=== PATIENT | male | born 1950 | race Caucasian/White ===

== ENCOUNTER → 2020-06-27 08:20 | Outpatient (BNVA) | payer MEDICARE, SELFPAY | PROVIDERS: PCP Internal Medicine; Referring Provider Internal Medicine; Visit Provider Internal Medicine Cardiovascular Disease | DX: I48.20 Chronic atrial fibrillation, unspecified (principal); Z79.01 Long term (current) use of anticoagulants; Z79.899 Other long term (current) drug therapy | CPT/HCPCS: 93005; 99212 ==

== ENCOUNTER → 2020-07-25 09:58 | Outpatient (REF) | payer MEDICARE, SELFPAY ==
--- NOTE | 2020-07-25 10:00 | ECG_ITS ---
Hook-up date: 2020-07-25 10:10:00 Duration: 35:32:00 Test Indications: UNSPEC ATRIAL FLUTTER Medications: [id number] QRS complexes 8017 Ventricular ectopics which represent 6 % of total QRS comp. * Supraventricular ectopics which represent % of total QRS comp. * Paced QRS complexs which represent % of total QRS comp. VENTRICULAR ECTOPY 7894 Isolated 650 Bigeminal Cycles 39 Couplets 15 Runs 45 Beats in Runs 3 Beats LONGEST at 120 BPM at 10:26:30 2020-07-25 3 Beats FASTEST at 136 BPM at 12:10:00 2020-07-25 SUPRAVENTRICULAR ECTOPY * Isolated * Couplets * Runs * Beats in Runs * Beats LONGEST at * BPM at :: -- * Beats FASTEST at * BPM at :: -- HEART RATES 55 MIN at 06:52:26 2020-07-26 87 AVG 169 MAX at 19:33:43 2020-07-25 LONGEST RR 1.9280 secs at 17:07:07 2020-07-25 S-T LEVELS Channel 1 - 128 mm at 10:10:00 2020-07-25 - 128 mm at 10:10:00 2020-07-25 Channel 2 - 128 mm at 10:10:00 2020-07-25 - 128 mm at 10:10:00 2020-07-25 Channel 3 - 128 mm at 02:92:91 -- - 128 mm at 02:92:91 Underlying rhythm is atrial fibrillation; Average ventricular rate 87/min; range 55-169/min; Most rates between 60-100/min; Frequent ventricular ectopy, about 8000 over 35 Hrs (6%); Mostly isolated; unifocal, some beats with alternate polarity; some couplets and bigeminal cycles; longest run 3 beats; Patient did not report any symptoms in the diary Referred By: Chas Gonzalez Overread By: WILLI SARGENT
== END ==
LOC: HO.CARD 09:58
PROVIDERS: PCP Internal Medicine; Visit Provider Internal Medicine Cardiovascular Disease
DX: I48.92 Unspecified atrial flutter (principal)
CPT/HCPCS: 93225; 93226

== ENCOUNTER 2020-11-07 08:33 | Outpatient (REF) | payer MEDICARE, SELFPAY ==
[2020-11-07 09:47] LABS: Anion Gap 13 (12-20); Blood Urea Nitrogen 20 mg/dL (9-16); Calcium 8.7 mg/dL (8.4-10.2); Carbon Dioxide 29 mmol/L (22-29); Chloride 100 mmol/L (96-108); Estimated Glomerular Filt Rate 49; Phosphorus 3.4 mg/dL (2.7-4.5); Sodium 137 mmol/L (135-145)
[2020-11-07 09:49] LABS: Creatinine Urine 94.25 mg/dL; Microalbum/Creatinine Ratio Ur 391.5 ug/mg cr
[2020-11-07 09:57] LABS: Renal w Reflex Lab Use Only Order verified
== END 2020-11-07 08:34 | disposition home or self-care (01) ==
LOC: HO.LAB 08:33
PROVIDERS: PCP Internal Medicine; Visit Provider Internal Medicine Nephrology
DX: I12.9 Hypertensive chronic kidney disease with stage 1 through stage 4 chronic kidney disease, or unspecified chronic kidney disease (principal); N18.30 Chronic kidney disease, stage 3 unspecified
CPT/HCPCS: 36415; 80051; 82043; 82310; 82565; 84100; 84520

== ENCOUNTER 2021-06-15 08:18 | Outpatient (REF) | payer MEDICARE, SELFPAY ==
[2021-06-15 08:34] LABS: MANUAL DIFF FLAG NO
[2021-06-15 09:15] LABS: Basophils Absolute Auto 0.1 X10*3/uL (0.0-0.2); Basophils Percent Auto 0.6 % (0-2); Eosinophils Absolute Auto 0.3 X10*3/uL (0.0-0.4); Eosinophils Percent Auto 2.8 % (0-4); Hematocrit 43.9 % (42-52); Imm Gran Abs Auto 0.13 X10*3/uL (0.00-0.03); Imm Gran Pct Auto 1.2 % (0.0-0.4); Lymphocytes Absolute Auto 1.3 X10*3/uL (1.2-4.9); Lymphocytes Percent Auto 12.4 % (20-40); Mean Corpuscular HGB Conc 34.2 g/dl (31.0-36.0); Mean Corpuscular Hemoglobin 31.8 pg (27.0-33.0); Mean Platelet Volume 9.9 fL (9.4-12.4); Monocytes Absolute Auto 0.7 X10*3/uL (0.1-1.2); Monocytes Percent Auto 6.9 % (2-11); Neutrophils Absolute Auto 8.2 X10*3/uL (2.0-8.3); Neutrophils Percent Auto 76.1 % (45-73); Platelet Count 280 X10*3/uL (160-400); Red Blood Count 4.72 X10*6/uL (4.60-5.80); White Blood Count 10.8 X10*3/uL (4.8-10.8)
[2021-06-15 09:38] LABS: Anion Gap 14 (12-20); Blood Urea Nitrogen 15 mg/dL (9-16); Carbon Dioxide 25 mmol/L (22-29); Chloride 104 mmol/L (96-108); Estimated Glomerular Filt Rate 47; Potassium 4.9 mmol/L (3.3-5.1); Sodium 138 mmol/L (135-145)
[2021-06-15 09:44] LABS: Creatinine Urine 106.26 mg/dL; Microalbum/Creatinine Ratio Ur 445.1 ug/mg cr; Total Protein Urine Random 81 mg/dL (<12)
[2021-06-16 14:31] LABS: Calcium (PTHI) 9.3 mg/dL (8.6-10.3); PTHI 102 pg/mL (14-64)
== END 2021-06-15 08:19 | disposition home or self-care (01) ==
LOC: HO.LAB 08:18
PROVIDERS: PCP Internal Medicine; Visit Provider Internal Medicine Nephrology
DX: I12.9 Hypertensive chronic kidney disease with stage 1 through stage 4 chronic kidney disease, or unspecified chronic kidney disease (principal); N18.31 Chronic kidney disease, stage 3a
CPT/HCPCS: 36415; 80051; 82043; 82565; 83970; 84156; 84520; 85025

== ENCOUNTER 2021-06-24 13:47 | Outpatient (REF) | payer MEDICARE, SELFPAY ==
[2021-06-24 14:38] LABS: Uric Acid 7.5 mg/dL (3.4-7.0)
== END 2021-06-24 13:48 | disposition home or self-care (01) ==
LOC: HO.LAB 13:47
PROVIDERS: PCP Internal Medicine; Visit Provider Internal Medicine Nephrology
DX: N18.31 Chronic kidney disease, stage 3a (principal)
CPT/HCPCS: 36415; 84550

== ENCOUNTER → 2021-06-29 09:04 | Outpatient (BNVA) | payer MEDICARE, SELFPAY | PROVIDERS: PCP Internal Medicine; Referring Provider Internal Medicine; Visit Provider Internal Medicine Cardiovascular Disease | DX: I48.20 Chronic atrial fibrillation, unspecified (principal); I95.1 Orthostatic hypotension | CPT/HCPCS: 93005; 99212 ==

== ENCOUNTER 2021-11-15 06:31 | Inpatient (IN) | payer MEDICARE, SELFPAY ==
[2021-11-15] VITALS (10 sets, daily range): BP systolic 129–203; BP diastolic 67–126; PULSE 88–122; RESP 19–32; TEMP 36.7–37.4; O2SAT 94–99; BMI 24.1
--- NOTE | ~2021-11-15 | CT_ITS ---
EXAMINATION: CT HEAD WITHOUT CONTRAST (STROKE PROTOCOL) CLINICAL INFORMATION: Stroke protocol. Difficulty word finding, on Eliquis. COMPARISON: Report of brain MRI from 06/11/2012. Head CT from 06/11/2012. TECHNIQUE: Contiguous axial imaging was performed from the skull base to vertex without intravenous administration of contrast. This CT examination was performed using dose optimization techniques as appropriate, variously including the following: *Automated exposure control *Adjustment of mA and/or kV according to patient size (this includes techniques or standardized protocols for targeted exams where dose is matched to indication/reason for exam; i.e. extremities or head) *Use of iterative reconstruction technique DLP: 744 mGy-cm FINDINGS: The brain parenchyma has normal attenuation with well-preserved white-white matter differentiation. No evidence of an acute major vascular territory infarction. No intracranial hemorrhage, extra-axial fluid collection, focal mass effect or midline shift. The ventricles have normal size and configuration; no hydrocephalus. The brainstem and cerebellum are unremarkable. The calvarium is intact. The visualized paranasal sinuses, mastoid air cells and middle ear cavities are well aerated. The orbits and temporomandibular joints are unremarkable. CT/CT head for stroke IMPRESSION: No acute intracranial pathology. This critical result was discussed with Dr. April Coleman at 7:06 am on 11/15/2021. It was ascertained that the content and urgency of the report was understood at the time of direct communication.
--- NOTE | ~2021-11-15 | XR_ITS ---
EXAMINATION: XR CHEST CLINICAL INFORMATION: Stroke symptoms COMPARISON: CXR from 11/05/2017 TECHNIQUE: Frontal view of the chest was obtained. FINDINGS: Lungs are well expanded and clear. No pulmonary edema, consolidation or pleural effusion. No pneumothorax. Cardiac silhouette has normal size and contour. There is atherosclerotic calcification of the aortic arch. Skeletal findings include [id number] osteoarthritis of the left glenohumeral joint. XR/XR chest 1V IMPRESSION: No acute pulmonary disease.
--- NOTE | ~2021-11-15 | CT_ITS ---
EXAMINATION: CTA OF THE HEAD AND NECK CLINICAL INFORMATION: Word finding difficulty. COMPARISON: Head CT from 11/15/2021. TECHNIQUE: Test bolus sequences followed by intravenous administration 70 mL of Omnipaque 350. Helical imaging was performed in the axial plane from the mediastinum to the skull vertex. Delayed postcontrast imaging of the head was also performed. The data was processed at the ophthalmic technologist's workstation for generation of MIP sequences. Three-dimensional volume rendered reformatted images were also generated at an offline 3-D workstation. Stenoses are assessed in accordance with NASCET criteria unless otherwise indicated. This CT examination was performed using dose optimization techniques as appropriate, variously including the following: *Automated exposure control *Adjustment of mA and/or kV according to patient size (this includes techniques or standardized protocols for targeted exams where dose is matched to indication/reason for exam; i.e. extremities or head) *Use of iterative reconstruction technique DLP: 1590 mGy-cm. FINDINGS: CTA neck: The imaged aortic arch and origins of the great vessels are normal. The common carotid arteries are widely patent. There are mild atherosclerotic wall calcifications at the carotid bifurcations and origins of the internal carotid arteries with mild stenotic narrowing bilaterally. The vertebral arteries opacify normally and are of normal caliber. The soft tissues of the neck are unremarkable. Moderate to severe multilevel cervical spondylosis noted. There are left AP window and right paratracheal space lymph nodes which are enlarged, measuring up to 1.2 cm in short axis dimension, of indeterminate etiology. Mild subsegmental atelectatic changes noted in the lungs. CTA head: The intradural vertebral arteries and basilar artery are normal. The posterior cerebral arteries are widely patent. There are mild to moderate stenoses in the cavernous segments of the internal carotid arteries with moderate atherosclerotic wall calcifications. The DANY and MCA vascular complexes bilaterally are normal. The venous sinuses opacify normally. CT/CT angio head neck stroke IMPRESSION: Normal CT angiogram of the head. Mild atherosclerotic disease at the carotid bifurcations with mild stenotic narrowing at the origins of the cervical internal carotid arteries. No high-grade stenosis or vessel occlusion. Mediastinal adenopathy of indeterminate etiology. A follow-up CT scan of the chest is recommended for more complete evaluation. Imaging findings reported to Dr. Coleman at 8:33 AM on 11/15/2021.
--- NOTE | ~2021-11-15 | MR_ITS ---
EXAMINATION: MR BRAIN WITHOUT CONTRAST CLINICAL INFORMATION: Facial droop and dysarthria. COMPARISON: CT from 11/15/2021. TECHNIQUE: Multiplanar, multisequence imaging of the brain was performed without contrast. FINDINGS: There is a focal acute infarct involving the dorsal right basal ganglia and right kumari radiata. The ventricles are normal in size. No mass effect or midline shift is seen. Mild chronic white matter microangiopathic changes noted. No extra-axial fluid collections are seen. The cerebellum is normal. Mild small vessel ischemic changes noted in the darshana. The gradient refocused acquisition is normal. The craniovertebral junction, marrow signal, and midline structures are normal. The major intracranial flow voids at the level of the [place] are preserved. The dural venous sinus flow voids are maintained. The paranasal sinuses are fairly well aerated. There is a mild amount of fluid in the dependent left mastoid air cells. There is an elongated lobulated T2 hyperintense lesion in the left parapharyngeal fat space which is indeterminate, measuring 0.6 cm in short axis dimension and up to 3 cm in oblique craniocaudal long axis dimension. 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 Mild chronic white matter microangiopathy. 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
--- NOTE | 2021-11-15 06:44 | ECG_ITS ---
Test Reason : dizz Blood Pressure : / mmHG Vent. 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 rate has increased BY 50 BPM Inverted T waves have replaced nonspecific T wave abnormality in Inferior leads Referred By: April Coleman Electronically Signed By:Rogerio Jacob
--- NOTE | 2021-11-15 06:45 | ED.NEUROSD ---
HPI - Neuro Symptoms/Deficit General Chief Complaint: Stroke Stated Complaint: General Weakness Time Seen by Provider: 11/15/21 06:43 Source: patient and family Mode of arrival: ambulatory Limitations: no limitations History of Present Illness HPI Narrative: 71 yo male with hx of afib on eliquis last dose 6pm, RBBB, HTN, mild CKD here with c/o noticing at 520am his L arm doesn't work well he has difficutly getting his words out he doesn't feel well and his body had chills. He denies any other issues but notes he has a hard time urinating sometimes. He took two tylenol. He is very anxious and crying. Onset (ago): hour(s) (520am) Last Observed Normal: 05:20 Timing confirmed by: family member Location: speech and left arm History of same: No Severity: mild Quality: weak Relieving factors: none Exacerbating factors: none Context: sudden onset On Anticoagulants: Yes Associated symptoms: fever/chills, headaches, malaise, weakness and other (anxiety, crying) Treatments Prior to Arrival: other medication (two tylenol) Related Data Home Medications Medication Instructions Recorded Confirmed omeprazole 20 mg capsule,delayed 20 mg PO DAILY 06/27/20 06/29/21 release allopurinol 100 mg tablet 100 mg PO DAILY 06/29/21 06/29/21 Previous Rx's Medication Instructions Recorded levothyroxine 50 mcg tablet 50 mcg PO QAM 90 Days #90 tab 02/11/21 metoprolol succinate 25 mg 25 mg PO BID #180 tab 03/13/21 tablet,extended release 24 hr apixaban 5 mg tablet (Eliquis) 5 mg PO BID #180 tab 03/22/21 Allergies Allergy/AdvReac Type Severity Reaction Status Date / Time lisinopril Allergy Unknown sob Verified 11/15/21 06:43 Ngxlugq-YGP-KtR Reductase Allergy Unknown myalgia Verified 11/15/21 06:43 Inhibitor [Pbpgkwc-Yxs-Zye Reductase Inhibitor] prednisone Allergy Unknown Verified 11/15/21 06:43 mold and dustmites Allergy Unknown unknown Uncoded 11/15/21 06:43 Review of Systems Review of Systems: Constitutional : No Fever, pos Chills, pos Fatigue ENT/Mouth : No sore throat, pos Rhinorrhea Eyes: No Eye Pain, No Swelling, No Redness Cardiovascular : No Chest Pain, No SOB, No Dyspnea on Exertion Respiratory : No Cough, No Sputum Gastrointestinal : No Nausea, No Vomiting, No Diarrhea, No abdominal Pain Genitourinary : No Dysuria, pos Urinary Frequency, No Hematuria, Musculoskeletal : No joint pain, No Myalgias, No Joint Swelling Skin : No Skin Lesions, No rash Neuro : pos Weakness, No Numbness, No Dizziness, positive Headache, pos slurred speech Psych : pos Anxiety/Panic, No Depression Heme/Lymph: No Bruising, No Bleeding,No Lymphadenopathy Endocrine : No Polyuria, No Polydipsia All other systems reviewed and are negative [facility] Past Medical History Attestation statement: The following information was validated with the patient. Medical History Chronic atrial fibrillation Chronic atrial flutter CKD (chronic kidney disease) Orthostatic hypotension RBBB Family History Family History Father CAD (coronary artery disease) Mother Stroke Family/Other Stroke Social History Social History (Updated 11/15/21 @ 07:22 by April Coleman DO) Patient Tobacco Use Status: Never used Tobacco Use of substances other than those prescribed or required for medical reasons: No Advance Directives: No Advance Directives Information Provided: Yes Physical Exam Vital Signs: Vital Signs: Last Vital Signs Temp 99.4 F 11/15/21 07:31 Pulse 122 H 11/15/21 08:31 Resp 26 H 11/15/21 08:01 BP 145/87 H 11/15/21 08:31 Pulse Ox 94 11/15/21 08:01 BMI result Body Mass Index 24.1 Appearance: Alert. Oriented X3. Mild acute distress - anxious crying. at bedside Eyes: Pupils equal, round and reactive to light. ENT: Pharynx normal. Neck: Normal inspection. Neck supple. CVS: tachycardic and irregular heart rate and rhythm. Pulses normal. Respiratory: No respiratory distress. Breath sounds normal. Abdomen: Soft and nontender. Skin: Skin warm and dry. Normal skin color. Normal skin turgor. Extremities: No lower extremity edema. No calf ttp Neuro: Oriented X 3. No motor deficit. No sensory deficit. CN 2-12 intact, mild expressive aphasia Course Course Course Narrative: not a candidat for tPa had eliquis 12 hours ago and PT is > 15 - CTA ordered but has borderline kidney function waiting for Cr though LVO seems unlikely IV diltiazem ordered at this time for rapid afib call from [facility] 832am: CTA negative for LVO lactic acidosis 2.7 - 500cc bolus IVF ordered, empiric ceftriaxone ordered at this time notes about a few weeks ago he was on antibiotics for dental procedures, empiric rocephin ordered 2G at this time given presentation and lab abnormalities MDM - Neuro Symptoms/Deficit MDM Narrative Medical decision making narrative: 71 yo male with hx of afib on eliquis last dose 6pm, RBBB, HTN, mild CKD here with neurologic symptoms of expressive aphasia / dysarthria but also he has a low grade temp and is in rapid afib. He took two tylenol [employer] and didn't feel well with chills as well. He will need not only a stroke workup but an infectious workup. Due to his recent eliquis use with borderline kidney function and PT > 15 he is not a candidate for tpA at this time. Will obtain CTA for LVO though low susp if his kidney function is amenable. UA and CXR ordered. Planned admit. IV dilt for rapid afib ordered as well. Lab Data Result diagrams: 11/15/21 06:10 11/15/21 06:10 Labs: Lab Results 11/15/21 11/15/21 11/15/21 Range/Units 06:10 06:10 06:10 WBC 16.4 H (4.8-10.8) X10*3/uL RBC 4.69 (4.60-5.80) X10*6/uL Hgb 15.1 (14.0-18.0) g/dl Hct 44.0 (42.0-52.0) % MCV 93.8 (80.0-98.0) fL MCH 32.2 (27.0-33.0) pg MCHC 34.3 (31.0-36.0) g/dl RDW 14.5 (11.0-16.0) % Plt Count 174 (160-400) X10*3/uL MPV 9.8 (9.4-12.4) fL Immature Gran % (Auto) 0.8 H (0.0-0.4) % Neut % (Auto) 87.2 H (45-73) % Lymph % (Auto) 5.6 L (20-40) % [place] % (Auto) 6.0 (2-11) % Eos % (Auto) 0.2 (0-4) % Baso % (Auto) 0.2 (0-2) % Lymph # (Auto) 0.9 L (1.2-4.9) X10*3/uL [place] # (Auto) 1.0 (0.1-1.2) X10*3/uL Eos # (Auto) 0.0 (0.0-0.4) X10*3/uL Baso # (Auto) 0.0 (0.0-0.2) X10*3/uL Abs Immat Gran (auto) 0.13 H (0.00-0.03) X10*3/uL Absolute Neuts (auto) 14.3 H (2.0-8.3) x10*3/uL Absolute Nucleated RBC 0.000 (0.0-0.012) X10*3/uL Nucleated RBC % (auto) 0.0 (0.0-0.2) /100WBC PT 16.6 H (9.9-13.0) SEC INR 1.5 H (0.9-1.1) APTT 35.9 (24.1-38.0) SEC Sodium 133 L (135-145) mmol/L Potassium 4.2 (3.3-5.1) mmol/L Chloride 100 (96-108) mmol/L Carbon Dioxide 20 L (22-29) mmol/L Anion Gap 17 (12-20) BUN 17 H (9-16) mg/dL Creatinine 1.40 (0.5-1.4) mg/dL Estim Creat Clear Calc 44.3 Estimated GFR 50 Random Glucose 238 H (60-115) mg/dL Lactic Acid (0.5-2.0) mmol/L Calcium 9.0 (8.4-10.2) mg/dL Magnesium 1.4 L* (1.6-2.6) mg/dL Total Bilirubin 1.8 H (0.0-1.0) mg/dL Direct Bilirubin 0.5 (0.0-0.5) mg/dL AST 23 (5-37) U/L ALT 40 (0-40) U/L Alkaline Phosphatase 63 (39-117) U/L Troponin I High Sens (<3.5-35.0) ng/L Total Protein 7.3 (6.5-8.0) g/dL Albumin 4.1 (3.5-5.0) g/dL Lipase 28 (8-78) U/L Urine Color Urine Appearance Urine pH (5.0-8.0) Ur Specific [place] (1.005-1.025) Urine Protein (NEG-TRACE) MG/DL Urine Glucose (UA) (NEG) MG/DL Urine Ketones (NEG) MG/DL Urine Blood (NEG) Urine Nitrite (NEG) Ur Leukocyte Esterase (NEG) COVID-19 (PIERRE) (Negative) COVID-19 Clin Com Influenza Type A (BIANCA) (Negative) Influenza Type B (BIANCA) (Negative) Influenza A & B Note 11/15/21 11/15/21 11/15/21 Range/Units 06:10 07:20 08:12 WBC (4.8-10.8) X10*3/uL RBC (4.60-5.80) X10*6/uL Hgb (14.0-18.0) g/dl Hct (42.0-52.0) % MCV (80.0-98.0) fL MCH (27.0-33.0) pg MCHC (31.0-36.0) g/dl RDW (11.0-16.0) % Plt Count (160-400) X10*3/uL MPV (9.4-12.4) fL Immature Gran % (Auto) (0.0-0.4) % Neut % (Auto) (45-73) % Lymph % (Auto) (20-40) % [place] % (Auto) (2-11) % Eos % (Auto) (0-4) % Baso % (Auto) (0-2) % Lymph # (Auto) (1.2-4.9) X10*3/uL [place] # (Auto) (0.1-1.2) X10*3/uL Eos # (Auto) (0.0-0.4) X10*3/uL Baso # (Auto) (0.0-0.2) X10*3/uL Abs Immat Gran (auto) (0.00-0.03) X10*3/uL Absolute Neuts (auto) (2.0-8.3) x10*3/uL Absolute Nucleated RBC (0.0-0.012) X10*3/uL Nucleated RBC % (auto) (0.0-0.2) /100WBC PT (9.9-13.0) SEC INR (0.9-1.1) APTT (24.1-38.0) SEC Sodium (135-145) mmol/L Potassium (3.3-5.1) mmol/L Chloride (96-108) mmol/L Carbon Dioxide (22-29) mmol/L Anion Gap (12-20) BUN (9-16) mg/dL Creatinine (0.5-1.4) mg/dL Estim Creat Clear Calc Estimated GFR Random Glucose (60-115) mg/dL Lactic Acid 2.7 H* (0.5-2.0) mmol/L Calcium (8.4-10.2) mg/dL Magnesium (1.6-2.6) mg/dL Total Bilirubin (0.0-1.0) mg/dL Direct Bilirubin (0.0-0.5) mg/dL AST (5-37) U/L ALT (0-40) U/L Alkaline Phosphatase (39-117) U/L Troponin I High Sens 12.1 (<3.5-35.0) ng/L Total Protein (6.5-8.0) g/dL Albumin (3.5-5.0) g/dL Lipase (8-78) U/L Urine Color Urine Appearance Urine pH (5.0-8.0) Ur Specific [place] (1.005-1.025) Urine Protein (NEG-TRACE) MG/DL Urine Glucose (UA) (NEG) MG/DL Urine Ketones (NEG) MG/DL Urine Blood (NEG) Urine Nitrite (NEG) Ur Leukocyte Esterase (NEG) COVID-19 (PIERRE) Negative (Negative) COVID-19 Clin Com See Note Influenza Type A (BIANCA) (Negative) Influenza Type B (BIANCA) (Negative) Influenza A & B Note 11/15/21 11/15/21 Range/Units 08:12 08:24 WBC (4.8-10.8) X10*3/uL RBC (4.60-5.80) X10*6/uL Hgb (14.0-18.0) g/dl Hct (42.0-52.0) % MCV (80.0-98.0) fL MCH (27.0-33.0) pg MCHC (31.0-36.0) g/dl RDW (11.0-16.0) % Plt Count (160-400) X10*3/uL MPV (9.4-12.4) fL Immature Gran % (Auto) (0.0-0.4) % Neut % (Auto) (45-73) % Lymph % (Auto) (20-40) % [place] % (Auto) (2-11) % Eos % (Auto) (0-4) % Baso % (Auto) (0-2) % Lymph # (Auto) (1.2-4.9) X10*3/uL [place] # (Auto) (0.1-1.2) X10*3/uL Eos # (Auto) (0.0-0.4) X10*3/uL Baso # (Auto) (0.0-0.2) X10*3/uL Abs Immat Gran (auto) (0.00-0.03) X10*3/uL Absolute Neuts (auto) (2.0-8.3) x10*3/uL Absolute Nucleated RBC (0.0-0.012) X10*3/uL Nucleated RBC % (auto) (0.0-0.2) /100WBC PT (9.9-13.0) SEC INR (0.9-1.1) APTT (24.1-38.0) SEC Sodium (135-145) mmol/L Potassium (3.3-5.1) mmol/L Chloride (96-108) mmol/L Carbon Dioxide (22-29) mmol/L Anion Gap (12-20) BUN (9-16) mg/dL Creatinine (0.5-1.4) mg/dL Estim Creat Clear Calc Estimated GFR Random Glucose (60-115) mg/dL Lactic Acid (0.5-2.0) mmol/L Calcium (8.4-10.2) mg/dL Magnesium (1.6-2.6) mg/dL Total Bilirubin (0.0-1.0) mg/dL Direct Bilirubin (0.0-0.5) mg/dL AST (5-37) U/L ALT (0-40) U/L Alkaline Phosphatase (39-117) U/L Troponin I High Sens (<3.5-35.0) ng/L Total Protein (6.5-8.0) g/dL Albumin (3.5-5.0) g/dL Lipase (8-78) U/L Urine Color STRAW Urine Appearance CLEAR Urine pH 6.0 (5.0-8.0) Ur Specific [place] <= 1.005 (1.005-1.025) Urine Protein NEG (NEG-TRACE) MG/DL Urine Glucose (UA) NEG (NEG) MG/DL Urine Ketones NEG (NEG) MG/DL Urine Blood NEG (NEG) Urine Nitrite NEG (NEG) Ur Leukocyte Esterase NEG (NEG) COVID-19 (PIERRE) (Negative) COVID-19 Clin Com Influenza Type A (BIANCA) Negative (Negative) Influenza Type B (BIANCA) Negative (Negative) Influenza A & B Note See Note ECG Data Attestation: I personally reviewed and interpreted this ECG as follows: ECG interpretation date: 11/15/21 ECG interpretation time: 07:32 Interpretation: Rate: 119 Rhythm: afib with RVR [place]: left Normal QRS complex. ST T wave : RBBB qTC: nonspecific no LAUREL sig artifact noted prior studies: old RBBB noted, hx of afib The study has been interpreted contemporaneously by me. NIH Stroke Scale Internal: Initial- Upon Arrival Level of Consciousness: Alert Level of Consciousness Questions: Answers both questions correctly Level of Consciousness Commands: Performs both tasks correctly Best Gaze: Normal Visual: No visual loss Facial Palsy: Normal Motor Arm (Right): No drift Motor Arm (Left): No drift Motor Leg (Right): No drift Motor Leg (Left): No drift Limb Ataxia: Absent Sensory: Normal Best Language: Mild to moderate aphasia Dysarthia: Mild to moderate dysarthria Extinction and Inattention: No abnormality Score: 2 Critical Care Time Critical Care Time Critical Care Time: Yes Total Critical Care Time: 45 Attestation: IVF, IV dilt, stroke protocol, IV antibiotics, admission to hospital I attest to this time spent taking care of the patient Discharge Plan Discharge Clinical Impression: Dysarthria, Atrial fibrillation with rapid ventricular response, Hypomagnesemia, Acidosis, lactic Leukocytosis Qualifiers: Leukocytosis type: unspecified Qualified Code(s): D72.829 - Elevated white blood cell count, unspecified HTN (hypertension) Qualifiers: Hypertension type: unspecified Qualified Code(s): I10 - Essential (primary) hypertension Prescriptions: No Action levothyroxine 50 mcg tablet 50 mcg PO QAM 90 Days Qty: 90 3RF metoprolol succinate 25 mg tablet extended release 24 hr 25 mg PO BID Qty: 180 2RF Eliquis 5 mg tablet 5 mg PO BID Qty: 180 3RF omeprazole 20 mg capsule,delayed release(DR/EC) 20 mg PO DAILY 0RF allopurinol 100 mg tablet 100 mg PO DAILY 0RF
[2021-11-15 07:00] LABS: MANUAL DIFF FLAG NO
[2021-11-15 07:06] LABS: INTERNATIONAL NORM RATIO 1.5 (0.9-1.1); Prothrombin Time 16.6 SEC (9.9-13.0)
[2021-11-15 07:09] LABS: Partial Thromboplastin Time 35.9 SEC (24.1-38.0)
[2021-11-15] MEDS: LORazepam 2 MG/ML VIAL 1 MG IVPUSH (07:09)
[2021-11-15 07:13] LABS: Basophils Percent Auto 0.2 % (0-2); Eosinophils Percent Auto 0.2 % (0-4); Hemoglobin 15.1 g/dl (14.0-18.0); Imm Gran Abs Auto 0.13 X10*3/uL (0.00-0.03); Imm Gran Pct Auto 0.8 % (0.0-0.4); Lymphocytes Absolute Auto 0.9 X10*3/uL (1.2-4.9); Lymphocytes Percent Auto 5.6 % (20-40); Mean Corpuscular HGB Conc 34.3 g/dl (31.0-36.0); Mean Corpuscular Hemoglobin 32.2 pg (27.0-33.0); Mean Corpuscular Volume 93.8 fL (80.0-98.0); Mean Platelet Volume 9.8 fL (9.4-12.4); Neutrophils Absolute Auto 14.3 x10*3/uL (2.0-8.3); Neutrophils Percent Auto 87.2 % (45-73); Platelet Count 174 X10*3/uL (160-400); Red Blood Count 4.69 X10*6/uL (4.60-5.80); Red Cell Distribution Width 14.5 % (11.0-16.0); White Blood Count 16.4 X10*3/uL (4.8-10.8)
[2021-11-15 07:25] LABS: Troponin-I High Sensitivity 12.1 ng/L (<3.5-35.0)
--- NOTE | 2021-11-15 07:25 | PC.NURSE ---
Pt A&Ox3, no complaints of pain at this time, RR in the high 20's, EKG shows Afib which is baseline for pt, but HR in the 110's. Pt has slurred sleep and states his L side of body feels different than the R, will try to turn on a light switch and miss the switch which isn't normal for him. LCA, no N/V/D at this time, pt does not complain of SOB, oral temp 99.6, awaiting urine sample and labs at this time, plan for CT angio. Call last within reach, will continue to monitor.
[2021-11-15 07:36] LABS: Alanine Aminotransferase 40 U/L (0-40); Albumin Level 4.1 g/dL (3.5-5.0); Alkaline Phosphatase 63 U/L (39-117); Anion Gap 17 (12-20); Aspartate Amino Transferase 23 U/L (5-37); Bilirubin Direct 0.5 mg/dL (0.0-0.5); Bilirubin Total 1.8 mg/dL (0.0-1.0); Blood Urea Nitrogen 17 mg/dL (9-16); Carbon Dioxide 20 mmol/L (22-29); Chloride 100 mmol/L (96-108); Creatinine Clr Calc Pharmacy 44.3; Estimated Glomerular Filt Rate 50; Glucose Random 238 mg/dL (60-115); Lipase 28 U/L (8-78); Magnesium 1.4 mg/dL (1.6-2.6); Potassium 4.2 mmol/L (3.3-5.1); Sodium 133 mmol/L (135-145); Total Protein 7.3 g/dL (6.5-8.0)
[2021-11-15 07:47] LABS: IDNOW Serial# 16C4AD1C
[2021-11-15 07:48] LABS: COVID-19 Test Negative (Negative)
[2021-11-15] MEDS: iohexoL 350 MG/ML 100 ML INFUS..BTL IV (07:48)
[2021-11-15] MEDS: Magnesium Sulfate/H2O 2 GM/50 ML PIGGYBACK IV (07:58)
[2021-11-15] MEDS: 0.9 % Sodium Chloride 500 ML IV ×2 (07:59→12:05)
[2021-11-15] MEDS: dilTIAZem HCL 50 MG/10 ML VIAL 10 MG IVPUSH (07:59)
[2021-11-15 08:30] LABS: Appearance Urine CLEAR; Color Urine STRAW; Glucose Urine UA NEG (NEG); Leukocyte Esterase Urine NEG (NEG); Nitrite Urine NEG (NEG); Specific Gravity - Urine <= 1.005 (1.005-1.025); Urine Blood NEG (NEG); Urine Ketones NEG (NEG); Urine Protein NEG (NEG-TRACE)
[2021-11-15 08:33] LABS: Lactic Acid 2.7 mmol/L (0.5-2.0)
[2021-11-15 08:34] LABS: Influenza A Negative (Negative)
[2021-11-15 08:35] LABS: Influenza B2 Negative (Negative)
[2021-11-15] MEDS: cefTRIAXone sodium 2 GM in 0.9 % Sodium Chloride 50 ML IV (09:10)
[2021-11-15 10:14] LABS: Reflex Lactate? Lactic Acid Added
--- NOTE | 2021-11-15 10:35 | P.HPHOSP_ITS ---
History of Present Illness Date of Service: 11/15/21 <LEORA Kruger - Last Filed: 11/15/21 11:07> Attending physician on admission: Tona Blount <LEORA Kruger - Last Filed: 11/15/21 11:07> Chief Complaint: Left side facial droop <LEORA Kruger - Last Filed: 11/15/21 11:07> This is a 71-year-old male who presents to the emergency department not feeling well. He woke up this morning was not feeling well. When he tried to get up but was unable to and may have had some weakness on the left side. He also felt like he was drooling from the left side of the mouth. His speech was also reported as garbled at the time of arrival. Brain CT and brain CTA were both negative. The patient takes Eliquis at home for atrial fibrillation and therefore he was not a tPA candidate. He was also noted to be tachycardic, EKG showed atrial fibrillation with rapid ventricular response. He received a dose of IV Cardizem with improvement in his heart rate. Blood pressure was also elevated at 203/126, his blood pressure improved and is 145/89 at this time. He was afebrile, no source of infection was identified, urinalysis and chest x-ray were unremarkable. Magnesium level was low at 1.4 and he received a dose of IV magnesium. Lactic acid was elevated at 2.7. He received IV fluid as well as empiric antibiotics. At this time patient's speech appears to have returned to normal. He continues to have left-sided facial droop. No weakness noted on the left side. COVID-19, RSV, flu swab negative. Of note patient did have root canal but that was 4-6 weeks ago and he has completed course of antibiotics. Pt was vaccinated against COVID-19 with x3 <LEORA Kruger - Last Filed: 11/15/21 11:07> Review of Systems Review of Systems: Yes all other systems are reviewed and are negative <LEORA Kruger Last Filed: 11/15/21 11:07> Constitutional: Constitutional: Denies chills and Denies fever(s) <LEORA Kruger Last Filed: 11/15/21 11:07> Eyes: Eyes: Denies change in vision and Denies photophobia <LEORA Kruger - Last Filed: 11/15/21 11:07> Cardiovascular: Cardiovascular: Denies chest pain, Denies palpitations and Denies dyspnea <LEORA Kruger - Last Filed: 11/15/21 11:07> Respiratory: Respiratory: Denies cough and Denies dyspnea <LEORA Kruger - Last Filed: 11/15/21 11:07> Gastrointestinal: Gastrointestinal: Denies abdominal pain, Denies diarrhea, Reports nausea and Denies vomiting <LEORA Kruger - Last Filed: 11/15/21 11:07> Endocrine: Endocrine: Denies palpitations <LEORA Kruger - Last Filed: 11/15/21 11:07> [facility] Medical History: Medical History (Updated 11/15/21 @ 10:47 by LEORA Kruger) Chronic atrial fibrillation Chronic atrial flutter CKD (chronic kidney disease) Esophagitis Gout Hypothyroidism Orthostatic hypotension RBBB <LEORA Kruger - Last Filed: 11/15/21 11:07> Functional capacity: independent ambulation <LEORA Kruger - Last Filed: 11/15/21 11:07> Family History: Family History Father CAD (coronary artery disease) Mother Stroke Family/Other Stroke <LEORA Kruger - Last Filed: 11/15/21 11:07> Social History: Social History (Updated 11/15/21 @ 10:50 by LEORA Kruger) Alcohol intake: current Patient Tobacco Use Status: Never used Tobacco Use of substances other than those prescribed or required for medical reasons: No Advance Directives: No Advance Directives Information Provided: Yes service: No Current occupational status: retired <LEORA Kruger - Last Filed: 11/15/21 11:07> Meds Allergies/Adverse reactions: Allergies Allergy/AdvReac Type Severity Reaction Status Date / Time lisinopril Allergy Unknown sob Verified 11/15/21 06:43 Obedeeh-MLF-NiA Reductase Allergy Unknown myalgia Verified 11/15/21 06:43 Inhibitor [Vbniuca-Dfj-Fbu Reductase Inhibitor] prednisone Allergy Unknown Verified 11/15/21 06:43 mold and dustmites Allergy Unknown unknown Uncoded 11/15/21 06:43 <LEORA Kruger Last Filed: 11/15/21 11:07> Home medications: Home Medications Medication Instructions Recorded Confirmed Last Taken Type omeprazole 20 mg capsule,delayed 20 mg PO DAILY@0630 06/27/20 11/15/21 11/14/21 History release allopurinol 100 mg tablet 100 mg PO DAILY 06/29/21 11/15/21 11/14/21 History fluticasone propionate 50 1 spray INTRANASAL BID PRN 11/15/21 11/15/21 Unknown History mcg/actuation nasal spray,suspension psyllium husk 0.4 gram capsule 0.8 g PO DAILY 11/15/21 11/15/21 11/14/21 History (Metamucil) <LEORA Kruger Last Filed: 11/15/21 11:07> Physical Exam Vital Signs and Narrative: Vital Signs: Last Vital Signs Temp 99.4 F 11/15/21 07:31 Pulse 95 11/15/21 09:12 Resp 24 H 11/15/21 09:12 BP 145/89 H 11/15/21 09:12 Pulse Ox 94 11/15/21 09:12 BMI result Body Mass Index 24.1 <LEORA Kruger Last Filed: 11/15/21 11:07> Const: General: cooperative, comfortable, alert and awake <LEORA Kruger Last Filed: 11/15/21 11:07> Nutritional Appearance: average body habitus <LEORA Kruger Last Filed: 11/15/21 11:07> Eyes: Direct Ophthalmoscopy: No photophobia <LEORA Kruger Last Filed: 11/15/21 11:07> Resp: Effort & Inspection: normal respiratory effort and able to speak in complete sentences <LEORA Kruger Last Filed: 11/15/21 11:07> Auscultation: clear to auscultation bilaterally <LEORA Kruger Last Filed: 11/15/21 11:07> Cardio: Rate: regular rate <LEORA Kruger - Last Filed: 11/15/21 11:07> Rhythm: abnormal rhythm irregularly irregular <LEORA Kruger - Last Filed: 11/15/21 11:07> GI: Inspection: No distended <LEORA Kruger - Last Filed: 11/15/21 11:07> Palpation (GI): Soft to palpation and nontender <LEORA Kruger - Last Filed: 11/15/21 11:07> Neuro: Other: left side facial droop <LEORA Kruger - Last Filed: 11/15/21 11:07> Cranial nerves: Yes Midline tongue present <LEORA Kruger - Last Filed: 11/15/21 11:07> Motor exam (neuro): 5/5 motor strength present throughout and Pronator motor function not present <LEORA Kruger - Last Filed: 11/15/21 11:07> Extrem: Other: no leg edema; moving all 4 extremities spontaneously <LEORA Kruger - Last Filed: 11/15/21 11:07> Results Labs CBC and Chem 7: : 11/15/21 06:10 11/15/21 06:10 <LEORA Kruger - Last Filed: 11/15/21 11:07> Labs: Laboratory Results - last 24 hr 11/15/21 11/15/21 11/15/21 06:10 06:10 06:10 MCV 93.8 MCH 32.2 MCHC 34.3 RDW 14.5 Plt Count 174 MPV 9.8 Immature Gran % (Auto) 0.8 H Neut % (Auto) 87.2 H Lymph % (Auto) 5.6 L [place] % (Auto) 6.0 Eos % (Auto) 0.2 Baso % (Auto) 0.2 Lymph # (Auto) 0.9 L [place] # (Auto) 1.0 Eos # (Auto) 0.0 Baso # (Auto) 0.0 Abs Immat Gran (auto) 0.13 H Absolute Neuts (auto) 14.3 H Absolute Nucleated RBC 0.000 Nucleated RBC % (auto) 0.0 PT 16.6 H INR 1.5 H APTT 35.9 Anion Gap 17 Estim Creat Clear Calc 44.3 Estimated GFR 50 Random Glucose 238 H Lactic Acid Calcium 9.0 Magnesium 1.4 L* Total Bilirubin 1.8 H Direct Bilirubin 0.5 AST 23 ALT 40 Alkaline Phosphatase 63 Total Protein 7.3 Albumin 4.1 Lipase 28 Urine Color Urine Appearance Urine pH Ur Specific [place] Urine Protein Urine Glucose (UA) Urine Ketones Urine Blood Urine Nitrite Ur Leukocyte Esterase COVID-19 (PIERRE) COVID-19 Clin Com Influenza Type A (BIANCA) Influenza Type B (BIANCA) Influenza A & B Note 11/15/21 11/15/21 11/15/21 07:20 08:12 08:12 MCV MCH MCHC RDW Plt Count MPV Immature Gran % (Auto) Neut % (Auto) Lymph % (Auto) [place] % (Auto) Eos % (Auto) Baso % (Auto) Lymph # (Auto) [place] # (Auto) Eos # (Auto) Baso # (Auto) Abs Immat Gran (auto) Absolute Neuts (auto) Absolute Nucleated RBC Nucleated RBC % (auto) PT INR APTT Anion Gap Estim Creat Clear Calc Estimated GFR Random Glucose Lactic Acid 2.7 H* Calcium Magnesium Total Bilirubin Direct Bilirubin AST ALT Alkaline Phosphatase Total Protein Albumin Lipase Urine Color Urine Appearance Urine pH Ur Specific [place] Urine Protein Urine Glucose (UA) Urine Ketones Urine Blood Urine Nitrite Ur Leukocyte Esterase COVID-19 (PIERRE) Negative COVID-19 Clin Com See Note Influenza Type A (BIANCA) Negative Influenza Type B (BIANCA) Negative Influenza A & B Note See Note 11/15/21 08:24 MCV MCH MCHC RDW Plt Count MPV Immature Gran % (Auto) Neut % (Auto) Lymph % (Auto) [place] % (Auto) Eos % (Auto) Baso % (Auto) Lymph # (Auto) [place] # (Auto) Eos # (Auto) Baso # (Auto) Abs Immat Gran (auto) Absolute Neuts (auto) Absolute Nucleated RBC Nucleated RBC % (auto) PT INR APTT Anion Gap Estim Creat Clear Calc Estimated GFR Random Glucose Lactic Acid Calcium Magnesium Total Bilirubin Direct Bilirubin AST ALT Alkaline Phosphatase Total Protein Albumin Lipase Urine Color STRAW Urine Appearance CLEAR Urine pH 6.0 Ur Specific [place] <= 1.005 Urine Protein NEG Urine Glucose (UA) NEG Urine Ketones NEG Urine Blood NEG Urine Nitrite NEG Ur Leukocyte Esterase NEG COVID-19 (PIERRE) COVID-19 Clin Com Influenza Type A (BIANCA) Influenza Type B (BIANCA) Influenza A & B Note <LEORA Kruger - Last Filed: 11/15/21 11:07> Imaging Radiologist's Impressions: Impressions Head CT 11/15/21 06:57 IMPRESSION: No acute intracranial pathology. This critical result was discussed with Dr. April Coleman at 7:06 am on 11/15/2021. It was ascertained that the content and urgency of the report was understood at the time of direct communication. Chest X-Ray 11/15/21 07:27 IMPRESSION: No acute pulmonary disease. Head/Neck CTA 11/15/21 07:48 IMPRESSION: Normal CT angiogram of the head. Mild atherosclerotic disease at the carotid bifurcations with mild stenotic narrowing at the origins of the cervical internal carotid arteries. No high-grade stenosis or vessel occlusion. Mediastinal adenopathy of indeterminate etiology. A follow-up CT scan of the chest is recommended for more complete evaluation. Imaging findings reported to Dr. Coleman at 8:33 AM on 11/15/2021. <LEORA Kruger - Last Filed: 11/15/21 11:07> Assessment and Plan (1) Dysarthria: Status: Acute <LEORA Kruger - Last Filed: 11/15/21 11:07> (2) Atrial fibrillation with rapid ventricular response: Status: Acute <LEORA Kruger - Last Filed: 11/15/21 11:07> Plan This is a 71-year-old male with history of atrial fibrillation on Eliquis, hypothyroidism, CKD 3 among others who presents to the emergency department this morning with left-sided facial droop and dysarthria found to be in atrial fib rillation with rapid ventricular response, uncontrolled hypertension Dysarthria/left facial droop Dysarthria resolved, facial droop persists Need to rule out stroke Brain CT, CTA negative Not a candidate for tPA due to anticoagulation with Eliquis (last dose 11/14 at 6pm) Tele monitoring, neuro checks Bedside swallow eval PT eval, lipid profile MRI brain pending Neurology consult pending Will need to discuss compliance with Eliquis if MRI + for CVA to rule out failure of Eliquis SIRS pt met sirs criteria with tachycardia, tachypnea, leukocytosis; Lactic acid elevated 2.7 No source of infection identified at this time Urinalysis, chest x-ray negative Received empiric antibiotics in the ED Follow blood cultures Atrial fibrillation with rapid ventricular response Received Cardizem IV in ED Continue home dose of metoprolol Continue anticoagulation with Eliquis Elevated lactic acid May be secondary to dehydration. No evidence of infection to suggest sepsis Received IV fluid follow repeat lactic Hypomagnesemia Received IV magnesium in ED Trend, replace as needed Tele monitoring Uncontrolled hypertension Received 10 mg IV Cardizem in the ED with good effect Avoid other antihypertensives to allow for permissive hypertension in the setting of possible acute stroke (will continue metoprolol due to uncontrolle afib) Mediastinal edenopathy will need outpatient chest CT follow up Hypothyroidism TSH/free T4 pending Continue home dose of levothyroxine Esophagitis/GERD Continue med DVT prophylaxis-Eliquis Healthcare proxy, - lucero Code status - full code Attending; dr. blount <LEORA Kruger - Last Filed: 11/15/21 11:07> Quality Stroke Does the patient have a stroke diagnosis?: No <LEROA Kruger - Last Filed: 11/15/21 11:07> VTE Prior VTE?: No <LEORA Kruger - Last Filed: 11/15/21 11:07> VTE Risk Level:: Medical - moderate - high <LEORA Kruger - Last Filed: 11/15/21 11:07> VTE Device Contraindication: N/A - Device Ordered <LEORA Kruger - Last Filed: 11/15/21 11:07> VTE Drug Contraindication: N/A - Med Ordered <LEORA Kruger - Last Filed: 11/15/21 11:07>
[2021-11-15 10:54] LABS: TSH reflex Free T4 3.13 uIU/mL (0.32-4.0)
--- NOTE | 2021-11-15 10:58 | PHA.MEDREC ---
Pharmacy Consult ? Medication Reconciliation Pharmacy has completed the medication reconciliation.
--- NOTE | 2021-11-15 11:07 | MHC.CM.PN ---
Met with pt and spouse to discuss d/c planning: pt resides with spouse and is independent with all care needs: no services or DME and offers no barriers to care. HCP on file, IMM in chart, spouse can transport home. Vax x3
[2021-11-15 11:41] LABS: ~Lactic Acid-LAB USE ONLY 2.9 mmol/L (0.5-2.0)
[2021-11-15] MEDS: Apixaban 5 MG TABLET PO ×2 (12:02→20:18)
[2021-11-15 13:00] LABS: Reflex Lactate? 2 Y
[2021-11-15 14:11] LABS: ~Lactic Acid-LAB USE ONLY 2.6 mmol/L (0.5-2.0)
[2021-11-15 16:41] LABS: Glucose, Whole Blood 243 mg/dL (60-115)
--- NOTE | 2021-11-15 17:44 | PC.NURSE ---
Swallow eval passed with this RN, Pt ambulatory independently, no complaints of pain at this time, awaiting bed assignment. at bedside will continue to monitor.
--- NOTE | 2021-11-15 18:45 | PM.EVENT ---
Event Note Date of Service: 11/15/21 Event Note: Patient seen and examined with APC. Patient getting admitted because of possible facial droop left-sided, dysarthria, also found to have AFib with RVR initially in the ED which is improving, uncontrolled hypertension. Physical exam: See H&P note. Assessment and plan coordinated in APCs note, agree with the plan and in addition: Dysarthria seems to be improving, has mild left-sided facial droop-possible TIA versus CVA MRI added, neuro consult continue Eliquis. PT evaluation and lipid profile. Patient also met SIRS criteria: UA, chest x-ray, CT head seems negative Blood cultures sent Patient also received 2 g ceftriaxone in the ED Added id evaluation.
[2021-11-15] MEDS: Metoprolol Succinate ER 25 MG TAB.ER.24H PO (20:18)
[2021-11-16] VITALS (8 sets, daily range): BP systolic 130–162; BP diastolic 70–100; PULSE 83–117; RESP 16–18; TEMP 36.4–36.9; O2SAT 96–98; BMI 23.8
[2021-11-16] MEDS: 0.9 % Sodium Chloride Flush 3 ML SYRINGE IVFLUSH ×3 (00:23→15:51)
[2021-11-16] MEDS: Metoprolol Tartrate 5 MG/5 ML VIAL IVPUSH (00:50)
[2021-11-16] MEDS: Levothyroxine Sodium 50 MCG TABLET PO (06:20)
[2021-11-16] MEDS: Omeprazole 20 MG CAPSULE.DR PO (06:20)
[2021-11-16 06:54] LABS: MANUAL DIFF FLAG NO
[2021-11-16 07:11] LABS: Basophils Percent Auto 0.4 % (0-2); Eosinophils Absolute Auto 0.1 X10*3/uL (0.0-0.4); Eosinophils Percent Auto 1.1 % (0-4); Hematocrit 42.6 % (42.0-52.0); Hemoglobin 14.4 g/dl (14.0-18.0); Imm Gran Abs Auto 0.11 X10*3/uL (0.00-0.03); Imm Gran Pct Auto 1.1 % (0.0-0.4); Lymphocytes Absolute Auto 1.5 X10*3/uL (1.2-4.9); Lymphocytes Percent Auto 15.4 % (20-40); Mean Corpuscular HGB Conc 33.8 g/dl (31.0-36.0); Mean Corpuscular Hemoglobin 32.1 pg (27.0-33.0); Mean Corpuscular Volume 95.1 fL (80.0-98.0); Mean Platelet Volume 9.8 fL (9.4-12.4); Monocytes Absolute Auto 0.7 X10*3/uL (0.1-1.2); Monocytes Percent Auto 7.3 % (2-11); Neutrophils Absolute Auto 7.2 x10*3/uL (2.0-8.3); Neutrophils Percent Auto 74.7 % (45-73); Platelet Count 165 X10*3/uL (160-400); Red Blood Count 4.48 X10*6/uL (4.60-5.80); Red Cell Distribution Width 14.4 % (11.0-16.0); White Blood Count 9.6 X10*3/uL (4.8-10.8)
[2021-11-16 07:21] LABS: Anion Gap 14 (12-20); Blood Urea Nitrogen 13 mg/dL (9-16); Calcium 8.7 mg/dL (8.4-10.2); Carbon Dioxide 24 mmol/L (22-29); Chloride 102 mmol/L (96-108); Cholesterol 150 mg/dL; Creatinine Clr Calc Pharmacy 58.5; Estimated Glomerular Filt Rate > 60; Glucose Random 173 mg/dL (60-115); HDL Cholesterol 33 mg/dL; LDL Cholesterol Calculated 87 mg/dl; Potassium 3.9 mmol/L (3.3-5.1); Sodium 136 mmol/L (135-145); Triglycerides 150 mg/dL
[2021-11-16] MEDS: allopurinoL 100 MG TABLET PO (08:34)
[2021-11-16] MEDS: Apixaban 5 MG TABLET PO ×2 (08:34→20:35)
[2021-11-16] MEDS: Metoprolol Succinate ER 50 MG TAB.ER.24H PO ×2 (08:39→20:35)
--- NOTE | 2021-11-16 10:07 | P.CDIC_ITS ---
CDI Concurrent Query Documentation Clarification: PHYSICIAN'S DOCUMENTATION REQUEST Date of Query: 11/16/21 1008 Patient Name: Gabriele Harris Admit Date: 11/15/21 Dear Doctor, A review of the medical record indicates additional documentation may be needed. Please review below and update the documentation accordingly. Clinical Indicators: Risk Factors/Clinical Indicators/Treatments History of Chronic atrial fibrillation on home Eliquis. H&P: Atrial fibrillation with RVR Continue Metoprolol. Uncontrolled Afib. If possible, please provide further specificity regarding atrial fibrillation, such as: * Paroxysmal atrial fibrillation: * Persistent atrial fibrillation: * Long lasting persistent atrial fibrillation: * Other (please specify) * Unable to determine Use of terms such as suspected, likely, concern for, or probable (associated with a specific diagnosis that is being evaluated, monitored, or treated as if it exists) are acceptable and can be coded in the inpatient setting, when documented at the time of discharge. Thank you, Nolvia Barron [facility], CDIS Extension: [phone] Please use your independent medical judgment in providing your response. THIS QUERY IS PART OF THE PERMANENT MEDICAL RECORD Provider Response: Other Other Diagnosis: Ch Afib
--- NOTE | 2021-11-16 12:19 | P.CNNE_ITS ---
History of Present Illness Data of Consult Service Date: 11/16/21 Primary Care Provider: Parth Rajan MD [facility] Reason for consult: Stroke 71 years old man with underlying history of atrial fibrillation on anticoagu lation came to hospital with not feeling well. He also complained of left-sided weakness. Onset was unclear. He also had difficulty speaking, which now was better. His workup revealed a stroke and this consultation was obtained. There was no associated headache or cold or flu-like illness. Review of Systems Review of Systems: No recent trauma or cold or flu-like illness. [facility] Past Medical History Medical History (Updated 11/16/21 @ 12:22 by Karri Hoff MD) Chronic atrial fibrillation Chronic atrial flutter CKD (chronic kidney disease) Esophagitis Gout Hypothyroidism Orthostatic hypotension RBBB Functional capacity: independent ambulation Family History Family History Father CAD (coronary artery disease) Mother Stroke Family/Other Stroke Social History Social History (Updated 11/15/21 @ 10:50 by LEORA Kruger) Household Members: Spouse Housing: House Do you presently have visiting nurse or other home services: No Alcohol intake: current Patient Tobacco Use Status: Never used Tobacco service: No Current occupational status: retired Meds Allergies Allergy/AdvReac Type Severity Reaction Status Date / Time lisinopril Allergy Unknown sob Verified 11/15/21 06:43 Kgfoxkj-LHK-XbG Reductase Allergy Unknown myalgia Verified 11/15/21 06:43 Inhibitor [Sujlvms-Idz-Vhy Reductase Inhibitor] prednisone Allergy Unknown Verified 11/15/21 06:43 mold and dustmites Allergy Unknown unknown Uncoded 11/15/21 06:43 Active Medications: Current Medications Acetaminophen (Acetaminophen 325 Mg Tablet) 650 mg PO Q6H PRN PRN Reason: Pain, Mild (Pain Scale 1-3) Allopurinol (Allopurinol 100 Mg Tablet) 100 mg PO DAILY [facility] Last Admin: 11/16/21 08:34 Dose: 100 mg Documented by: Apixaban (Apixaban 5 Mg Tablet) 5 mg PO BID [facility] Last Admin: 11/16/21 08:34 Dose: 5 mg Documented by: Docusate Sodium (Docusate Sodium 100 Mg Capsule) 100 mg PO DAILY PRN PRN Reason: Constipation Levothyroxine Sodium (Levothyroxine Sodium 50 Mcg Tablet) 50 mcg PO DAILY@0600 [facility] Last Admin: 11/16/21 06:20 Dose: 50 mcg Documented by: Metoprolol Succinate (Metoprolol Succinate Er 50 Mg Tab.Er.24h) 50 mg PO BID [facility]; Protocol Last Admin: 11/16/21 08:39 Dose: 50 mg Documented by: Omeprazole (Omeprazole 20 Mg Capsule.) 20 mg PO DAILY@0630 [facility] Last Admin: 11/16/21 06:20 Dose: 20 mg Documented by: Pharmacy Consult (Consult Rx Perform Med Rec) 1 each MISCELLANE ONCE PRN PRN Reason: Consult order Sodium Chloride (0.9 % Sodium Chloride Flush 3 Ml Syringe) 3 ml IVFLUSH QSHIFT [facility] Last Admin: 11/16/21 08:39 Dose: 3 ml Documented by: Home Medications Medication Instructions Recorded Confirmed Last Taken Type omeprazole 20 mg capsule,delayed 20 mg PO DAILY@0630 06/27/20 11/15/21 11/14/21 History release allopurinol 100 mg tablet 100 mg PO DAILY 06/29/21 11/15/21 11/14/21 History fluticasone propionate 50 1 spray INTRANASAL BID PRN 11/15/21 11/15/21 Unknown History mcg/actuation nasal spray,suspension psyllium husk 0.4 gram capsule 0.8 g PO DAILY 11/15/21 11/15/21 11/14/21 History (Metamucil) Physical Exam Vital Signs: Vital Signs: Last Vital Signs Temp 98.0 F 11/16/21 11:22 Pulse 88 11/16/21 11:22 Resp 18 11/16/21 11:22 BP 142/79 H 11/16/21 11:22 Pulse Ox 97 11/16/21 11:22 BMI result Body Mass Index 23.8 Neuro: Other: He was alert and awake with normal spontaneity of speech fluency comprehension and slightly flat affect. Speech was okay. Pupils were round reactive. Extraocular muscles were intact. Visual sprague are full. There was mild right- sided ptosis, which was chronic. There was mild left-sided facial flatness. There was minimal left pronator drift. Deep tendon reflexes were trace with flexor plantars. Results Labs CBC & Chem 7: 11/16/21 06:43 11/16/21 06:43 Labs: Short CBC 11/16/21 Range/Units 06:43 WBC 9.6 (4.8-10.8) X10*3/uL Hgb 14.4 (14.0-18.0) g/dl Hct 42.6 (42.0-52.0) % Plt Count 165 (160-400) X10*3/uL BMP 11/16/21 06:43 Sodium 136 Potassium 3.9 Chloride 102 Carbon Dioxide 24 BUN 13 Creatinine 1.06 Calcium 8.7 Noncontrast MRI of brain revealed an acute right subcortical ischemic infarct ion. Microbiology Microbiology Results: Microbiology 11/15/21 08:42 Blood - Venous Blood Culture - Preliminary No growth after 24 hours. 11/15/21 08:12 Blood - Venous Blood Culture - Preliminary No growth after 24 hours. Assessment and Plan (1) Cerebral infarction: Status: Acute 71 years old man who came to hospital with nonspecific symptoms of not feeling well and also having some left-sided weakness and difficulty speaking. Onset was unclear in and he was on anticoagulation because of which she was not a candidate for aggressive treatment such as intravenous tPA. His initial CT did not reveal any acute pathology and CTA did not reveal any vascular stenosis. Clinically he was better with his speech. His examination revealed mild left hemiparesis an MRI of brain revealed an acute right subcortical ischemic infarction. He should be advised to take anticoagulation and regular basis as patients can frequently miss doses. Otherwise as far as stroke prophylactic treatment is concerned, no further investigations are needed. Procedures Date of Service Date of Service: 11/16/21
--- NOTE | 2021-11-16 12:29 | HO.PM.IMPN ---
Subjective Subjective Date of Service: 11/16/21 Interval History: afib with rvr ,sirs,Dysarthria/left facial droop Review of Systems seems dysarthria seems improving ventricular rate running 120's Denies any chest pain or shortness of breath abdominal pain or fever or chills has throat pain Physical Exam Vital Signs: Vital Signs: Last Vital Signs Temp 98.0 F 11/16/21 11:22 Pulse 88 11/16/21 11:22 Resp 18 11/16/21 11:22 BP 142/79 H 11/16/21 11:22 Pulse Ox 97 11/16/21 11:22 BMI result Body Mass Index 23.8 Appearance: Alert.? Oriented X3.? not in distress.? Eyes: Pupils equal, round and reactive to light.? Sclera nonicteric.? ENT: Pharynx normal.? Moist mucous membranes. cvs: irregular rythem, [id number] . res: clear to auscultation ,no rhonchii or wheezing abd: no rebound or guarding ,nt, bs present. ext pulses present , no cyanosis. neuro: axo3, strength and sensation intact, ?left facialdroop Objective Data Active Medications Acetaminophen (Acetaminophen 325 Mg Tablet) 650 mg PO Q6H PRN PRN Reason: Pain, Mild (Pain Scale 1-3) Allopurinol (Allopurinol 100 Mg Tablet) 100 mg PO DAILY [facility] Last Admin: 11/16/21 08:34 Dose: 100 mg Documented by: RACHEL Apixaban (Apixaban 5 Mg Tablet) 5 mg PO BID [facility] Last Admin: 11/16/21 08:34 Dose: 5 mg Documented by: RACHEL Docusate Sodium (Docusate Sodium 100 Mg Capsule) 100 mg PO DAILY PRN PRN Reason: Constipation Levothyroxine Sodium (Levothyroxine Sodium 50 Mcg Tablet) 50 mcg PO DAILY@0600 [facility] Last Admin: 11/16/21 06:20 Dose: 50 mcg Documented by: MANDY Metoprolol Succinate (Metoprolol Succinate Er 50 Mg Tab.Er.24h) 50 mg PO BID [facility]; Protocol Last Admin: 11/16/21 08:39 Dose: 50 mg Documented by: RACHEL Omeprazole (Omeprazole 20 Mg Jorge.) 20 mg PO DAILY@0630 [facility] Last Admin: 11/16/21 06:20 Dose: 20 mg Documented by: MANDY Pharmacy Consult (Consult Rx Perform Med Rec) 1 each MISCELLANE ONCE PRN PRN Reason: Consult order Sodium Chloride (0.9 % Sodium Chloride Flush 3 Ml Syringe) 3 ml IVFLUSH QSHIFT [facility] Last Admin: 11/16/21 08:39 Dose: 3 ml Documented by: RACHEL Labs CBC & Chem 7: 11/16/21 06:43 11/16/21 06:43 Labs: Laboratory Results - last 24 hr 11/15/21 11/15/21 11/16/21 13:33 16:35 06:43 MCV 95.1 MCH 32.1 MCHC 33.8 RDW 14.4 Plt Count 165 MPV 9.8 Immature Gran % (Auto) 1.1 H Neut % (Auto) 74.7 H Lymph % (Auto) 15.4 L [place] % (Auto) 7.3 Eos % (Auto) 1.1 Baso % (Auto) 0.4 Lymph # (Auto) 1.5 [place] # (Auto) 0.7 Eos # (Auto) 0.1 Baso # (Auto) 0.0 Abs Immat Gran (auto) 0.11 H Absolute Neuts (auto) 7.2 Absolute Nucleated RBC 0.000 Nucleated RBC % (auto) 0.0 Anion Gap Estim Creat Clear Calc Estimated GFR POC Glucose 243 H Random Glucose Lactic Acid F/U @ 4Hr 2.6 H* Calcium Magnesium Triglycerides Cholesterol LDL Cholesterol, Calc HDL Cholesterol 11/16/21 06:43 MCV MCH MCHC RDW Plt Count MPV Immature Gran % (Auto) Neut % (Auto) Lymph % (Auto) [place] % (Auto) Eos % (Auto) Baso % (Auto) Lymph # (Auto) [place] # (Auto) Eos # (Auto) Baso # (Auto) Abs Immat Gran (auto) Absolute Neuts (auto) Absolute Nucleated RBC Nucleated RBC % (auto) Anion Gap 14 Estim Creat Clear Calc 58.5 Estimated GFR > 60 POC Glucose Random Glucose 173 H Lactic Acid F/U @ 4Hr Calcium 8.7 Magnesium 2.0 Triglycerides 150 Cholesterol 150 LDL Cholesterol, Calc 87 HDL Cholesterol 33 Microbiology Microbiology Results: Microbiology 11/15/21 08:42 Blood Culture - Preliminary Blood - Venous No growth after 24 hours. 11/15/21 08:12 Blood Culture - Preliminary Blood - Venous No growth after 24 hours. Assessment and Plan (1) Cerebral infarction: Status: Acute (2) Atrial fibrillation with rapid ventricular response: Status: Acute (3) XENIA (acute kidney injury): Status: Acute Plan 71-year-old male with history of atrial fibrillation on Eliquis, hypothyroidism, CKD 3 among others who presents to the emergency department this morning with left-sided facial droop and dysarthria found to be in atrial fibrillation with rapid ventricular response, uncontrolled hypertension 1.Dysarthria/left facial droop Dysarthria resolved, facial droop persists Brain CT, CTA negative,MRI brain -?mild left hemiparesis an MRI of brain revealed an acute right subcortical ischemic infarction. Tele monitoring, neuro checks Neurology consult -patient has acute stroke above, recommended to continue anticoagulation and recommended compliance with Eliquis. lipid profile,swallow eval,OT eval. PT eval recommended acute rehab. 2.SIRS pt met sirs criteria with tachycardia, tachypnea, leukocytosis:improving Lactic acid elevated 2.7-improving No source of infection identified at this time Urinalysis, chest x-ray negative Received empiric antibiotics in the ED-UA neg ,blood culture prelim@24 hrs neg res panel and throat cultures added Id eval -noted: added echo , no antibiotcs 3.Atrial fibrillation with rapid ventricular response, has history of chronic AFib on Eliquis. Received Cardizem IV in ED ventricular rate in 120' s-adjusted metoprolol to 50 mg bid. Continue anticoagulation with Eliquis 4.Elevated lactic acid May be secondary to dehydration.? No evidence of infection to suggest sepsis Received IV fluid-repeated lactic acid trending down ,defer further lactic acid. 5.Hypomagnesemia Received IV magnesium in ED repleted , resolved. 6. hypertension: imrpoving adjusted metoprolol 50 mg bid. 7.Mediastinal edenopathy will need outpatient chest CT follow up 8.Hypothyroidism TSH/free T4 pending Continue home dose of levothyroxine 9.Esophagitis/GERD Continue meds. 10 Mild XENIA: improving with po intake , continue gentle hydration DVT prophylaxis-Eliquis Inpatient need : sirs( echo and blood cultures wait [id number]) ,afib with rvr, cva , ot eval . Quality Stroke Does the patient have a stroke diagnosis?: No VTE Prior VTE?: No VTE Risk Level:: Medical - moderate - high VTE Device Contraindication: N/A - Device Ordered VTE Drug Contraindication: N/A - Med Ordered
--- NOTE | 2021-11-16 12:53 | P.CDIC_ITS ---
CDI Concurrent Query Documentation Clarification: PHYSICIAN'S DOCUMENTATION REQUEST Date of Query: 11/16/21 1254 Patient Name: Gabriele Harris Admit Date: 11/15/21 Dear Doctor, A review of the medical record indicates additional documentation may be needed. Please review below and update the documentation accordingly. Clinical Indicators: The following clinical information was noted in the record: Risk Factors/Clinical Indicators/Treatments ED: PMH Chronic kidney disease Recent Eliquis use with borderline kidney function, waiting for Cr. H&P: PMH - CKD Cr. 1.40 1.06 Gfr 50 >60 Please clarify which of the following accurately represents the patient's renal status: * CKD, please provide stage - see criteria * Other (please specify) * Unable to determine Criteria for XENIA* Stages of Chronic Kidney Disease* 1. Increase in serum creatinine by ? 0.3 mg/dL Level Description GFR (?26.5 micromol/L) within 48 hours, or G1 Normal or High > 90 2. Increase in serum creatinine to ?1.5 times baseline, G2 Mildly decreased 60 ? 89 which is known or presumed to have occurred within 7 days, or G3a Mildly to moderately decreased 45 ? 59 3. Urine volume <0.5 mL/kg/hour for six hours G3b Moderately to severely decreased 30 - 44 G4 Severely decreased 15 ? 29 G5 Kidney failure < 15 *Source: Kidney Disease: Improving Global Outcomes (KDIGO) 2012 Use of terms such as suspected, likely, concern for, or probable (associated with a specific diagnosis that is being evaluated, monitored, or treated as if it exists) are acceptable and can be coded in the inpatient setting, when documented at the time of discharge. Thank you, Nolvia Barron [facility], CDIS Extension: [phone] Please use your independent medical judgment in providing your response. THIS QUERY IS PART OF THE PERMANENT MEDICAL RECORD Provider Response: Other Other Diagnosis: mild xenia
--- NOTE | 2021-11-16 13:36 | MHC.STROKE ---
PATIENT WALK-IN ED 06. HE EXPLAINED THAT HE DAD A NORMAL DAY TUESDAY AND WENT O BED AT 2100 (LKW). WAKE AT AROUND 0500 TO GO TO THE BATHROOM AND NOTICED LEFT SIDED WEAKNESS AND HIS SAID HIS SPEECH WAS THICK. 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 HE HAS A SIGNIFICANT FAMILY HISTORY OF STROKE. UPON ARRIVAL STROKE PROTOCOL WAS ACTIVATED. HE HAS AFIB AND IS CURRENTLY TAKING ELIQUIS BID FAITHFULLY. CT AND CTA H/N DONE, NO BLEED, NO LVO. I PROVIDED STROKE EDUCATION AND REVIEWED HIS MRI RESULTS. I GAVE THEM A SCREEN SHOT OF THE MRI AND LOCATION OF THE STROKE AND EXPLAINED HOW IT CORRELATES WITH HIS SYMPTOMS. HE WAS VERY EMOTIONAL DURING MY VISIT AND I DID RELAY THIS TO DR BRAMBILA, HE WILL ORDER SOMETHING TO HELP HIM. I REVIEWED THE PT AND OT NOTES. WE TALKED ABOUT [facility]. SPEECH CONSULT IS PENDING. I ALSO RELAYED THIS TO THE VP [employer]. I WILL CONTINUE TO FOLLOW.
--- NOTE | 2021-11-16 14:00 | P.CNID_ITS ---
History of Present Illness Data of Consult Service Date: 11/16/21 Requesting physician: Tona Blount Primary Care Provider: MD TRACI Magana Reason for consult: leukocytosis and tachypnea He presents with left sided weakness this am He has CT right basal ganglia CVA. He has tachypnea and tachycardia and no fever. WBC 16,000. Review of Systems Review of Systems: Yes all other systems are reviewed and are negative [facility] Past Medical History Medical History Chronic atrial fibrillation Chronic atrial flutter CKD (chronic kidney disease) Esophagitis Gout Hypothyroidism Orthostatic hypotension RBBB Functional capacity: independent ambulation Family History Family History Father CAD (coronary artery disease) Mother Stroke Family/Other Stroke Family history: reviewed and not pertinent Social History Social History Household Members: Spouse Housing: House Do you presently have visiting nurse or other home services: No Alcohol intake: current Patient Tobacco Use Status: Never used Tobacco service: No Current occupational status: retired Meds Allergies Allergy/AdvReac Type Severity Reaction Status Date / Time lisinopril Allergy Unknown sob Verified 11/15/21 06:43 Ltzptdu-QED-DsZ Reductase Allergy Unknown myalgia Verified 11/15/21 06:43 Inhibitor [Eflyvzs-Doa-Gwd Reductase Inhibitor] prednisone Allergy Unknown Verified 11/15/21 06:43 mold and dustmites Allergy Unknown unknown Uncoded 11/15/21 06:43 Active Medications: Current Medications Acetaminophen (Acetaminophen 325 Mg Tablet) 650 mg PO Q6H PRN PRN Reason: Pain, Mild (Pain Scale 1-3) Allopurinol (Allopurinol 100 Mg Tablet) 100 mg PO DAILY [facility] Last Admin: 11/16/21 08:34 Dose: 100 mg Documented by: Apixaban (Apixaban 5 Mg Tablet) 5 mg PO BID [facility] Last Admin: 11/16/21 08:34 Dose: 5 mg Documented by: Benzocaine (Throat Lozenge, Medicated Lozenge) 1 lozenge MUCOUS MEM Q2H PRN PRN Reason: Sore Throat Docusate Sodium (Docusate Sodium 100 Mg Capsule) 100 mg PO DAILY PRN PRN Reason: Constipation Levothyroxine Sodium (Levothyroxine Sodium 50 Mcg Tablet) 50 mcg PO DAILY@0600 [facility] Last Admin: 11/16/21 06:20 Dose: 50 mcg Documented by: Metoprolol Succinate (Metoprolol Succinate Er 50 Mg Tab.Er.24h) 50 mg PO BID [facility]; Protocol Last Admin: 11/16/21 08:39 Dose: 50 mg Documented by: Omeprazole (Omeprazole 20 Mg Capsule.) 20 mg PO DAILY@0630 [facility] Last Admin: 11/16/21 06:20 Dose: 20 mg Documented by: Pharmacy Consult (Consult Rx Perform Med Rec) 1 each MISCELLANE ONCE PRN PRN Reason: Consult order Sodium Chloride (0.9 % Sodium Chloride Flush 3 Ml Syringe) 3 ml IVFLUSH QSHIFT [facility] Last Admin: 11/16/21 08:39 Dose: 3 ml Documented by: Home Medications Medication Instructions Recorded Confirmed Last Taken Type omeprazole 20 mg capsule,delayed 20 mg PO DAILY@0630 06/27/20 11/15/21 11/14/21 History release allopurinol 100 mg tablet 100 mg PO DAILY 06/29/21 11/15/21 11/14/21 History fluticasone propionate 50 1 spray INTRANASAL BID PRN 11/15/21 11/15/21 Unknown History mcg/actuation nasal spray,suspension psyllium husk 0.4 gram capsule 0.8 g PO DAILY 11/15/21 11/15/21 11/14/21 History (Metamucil) Physical Exam Vital Signs: Vital Signs: Last Vital Signs Temp 98.0 F 11/16/21 11:22 Pulse 88 11/16/21 11:22 Resp 18 11/16/21 11:22 BP 142/79 H 11/16/21 11:22 Pulse Ox 97 11/16/21 11:22 BMI result Body Mass Index 23.8 Const: General: cooperative HEENT: Head: Yes normal to inspection Mouth: Normal oral and palatal mucosa present Resp: Effort & Inspection: normal respiratory effort Cardio: Rate: regular rate Rhythm: regular rhythm GI: Palpation (GI): Soft to palpation and nontender Skin: General skin exam: no rashes or lesions noted Neuro: Other: left sided weakness arm,leg,face slight Results Labs CBC & Chem 7: 11/16/21 06:43 11/16/21 06:43 Labs: Short CBC 11/16/21 Range/Units 06:43 WBC 9.6 (4.8-10.8) X10*3/uL Hgb 14.4 (14.0-18.0) g/dl Hct 42.6 (42.0-52.0) % Plt Count 165 (160-400) X10*3/uL BMP 11/16/21 06:43 Sodium 136 Potassium 3.9 Chloride 102 Carbon Dioxide 24 BUN 13 Creatinine 1.06 Calcium 8.7 Microbiology Microbiology Results: Microbiology 11/15/21 08:42 Blood - Venous Blood Culture - Preliminary No growth after 24 hours. 11/15/21 08:12 Blood - Venous Blood Culture - Preliminary No growth after 24 hours. Assessment and Plan (1) Cerebral infarction: Status: Acute (2) Leukocytosis: Qualifiers: Leukocytosis type: unspecified Qualified Code(s): D72.829 - Elevated white blood cell count, unspecified Status: Acute His leukocytosis and probably lactic acid due to cerebrovascular insult. There doesnt appear to be pneumonia or UTI but had dental cleaning four weeks ago and even though took antibiotics there is concern over endocarditis. Plan Check echo for endocarditis. Await blood cultures. No antibiotics at this time
[2021-11-16] MEDS: hydrOXYzine HCL 25 MG TABLET PO (14:12)
--- NOTE | 2021-11-16 15:00 | CA_ITS ---
Transthoracic Echocardiogram Patient (Last, First, Middle): Gabriele Harris H Gender: Male Date of : 1950 Age: 71 Procedure Date: 11/16/2021 Procedure Type: Transthoracic Echocardiogram Location: 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 - There is moderately decreased right ventricular systolic function. - There is mild mitral valve regurgitation. - There is mild tricuspid valve regurgitation. - Mild pulmonary hypertension is present. Findings Left Ventricle Normal left ventricular cavity size. There is normal left ventricular wall thickness. The left ventricular systolic function is mild to moderately decreased. There is mild global hypokinesis. Diastolic function is indeterminate on the basis of available data. Visually estimated LVEF about 40%. Right Ventricle Normal right ventricular cavity size. There is moderately decreased right ventricular systolic function. Atria The left atrium is mildly dilated. The right atrium is moderately dilated. Aortic Valve There is a normal trileaflet aortic valve. There is no aortic valve stenosis. There is no aortic valve regurgitation. Mitral Valve The mitral valve appears normal. There is mild mitral annular calcification. There is mild mitral valve regurgitation. There is no mitral valve stenosis. Pulmonic Valve The pulmonic valve was not well visualized. Tricuspid Valve There is mild tricuspid valve regurgitation. The right ventricular systolic pressure is 39 mmHg. Mild pulmonary hypertension is present. Great Vessels The sinuses of valsalva, sino tubular ridge, and asc aorta are normal in size. Venous The inferior vena cava is normal in size and collapses greater than 50% with inspiration. Pericardium/Pleural There is no evidence of pericardial effusion. Prior Study Comparison Changes noted compared to prior study dated: 12/14/2017. Diminished LVEF. Measurements 2D Linear Measurements IVSd: 0.99 0.6-0.9/0.6-1.0 cm LVIDd: 5.29 3.9-5.3/4.2-5.9 cm LVIDd Index: 3.02 2.4-3.2/2.2-3.1 cm/m2 LVIDs: 4.22 2.0-3.6 cm LVPWd: 0.93 0.7-1.1 cm LA Diam: 4.30 2.7-3.8/3.0-4.0 cm LAIDs Index: 2.46 1.5-2.3 cm/m2 LV Mass: 236.00 67-162/88-224 g LV Mass Index: 134.86 43-95/49-115 g/m2 LVOT Diam: 2.00 3.0+(-)1.3 cm 2D Systolic Function EF 4C: 52.20 >55% EF 2C: 37.50 >55% EF BiP: 46.50 >55% Mitral Valve MV Pk E: 0.74 MV Decel Time: 148.00 E'Lateral: 7.72 E'Medial: 5.98 E/E' Med: 12.30 E/E' Lat: 9.50 PHT: 43.00 MVA PHT: 5.12 Decel Cascade: 4.97 Aortic Valve AoV Pk [place]: 1.00 AoV Mn [place]: 0.78 AoV VTI: 0.18 AoV Pk Grad: 4.00 Aov Mn Grad: 3.00 TIGRE Cont.VTI: 2.19 LVOT LVOT Pk [place]: 0.73 LVOT Mn [place]: 0.54 LVOT VTI: 0.12 LVOT Pk Grad: 2.00 LVOT Mn Grad: 1.00 LVOT Diam: 2.00 LVOT Area: 3.14 Diastolic Function MV Pk E: 0.74 E'Medial: 5.98 E/E' Med: 12.30 E' Laterial: 7.72 E/E' Lat: 9.50 Right Ventricle TAPSE (mm): 1.11 TVS' [place]: 8.16 Tricuspid Valve TR Pk [place]: 2.99 TR Pk Grad: 36.00 RA Press: 3.00 RVSP: 39.00 Great Vessels Aorta Sinus of Valsalva: 3.20 2.0-3.[address] Ridge: 2.82 1.7-3.4 cm Ao Asc: 3.30 2.1-3.4 cm Ao Arch: 3.20 Updated in Other Vendor System with Status of Final Jabier Gilmore MD electronically signed on 11/16/2021 4:23:54 PM with status of Final
[2021-11-16] MEDS: Lactated Ringers 1,000 ML 80 ML IVCONT (15:49)
--- NOTE | 2021-11-16 17:41 | MHC.SL.SWA ---
Speech Pathologist Impression: Swallow WFL Patient presents with mild to moderate dysarthria. Concerns also surround expressive language and cognition. Risk of Aspiration Due to: Neurological Condition Dysphasia Diet Status:No change Liquid Consistency and Strategies for Safe Swallow: Liquid Intake Recommendation: Thin Liquid Intake Strategies: Small Sips Solid Food Consistency: Dietary Recommendations: Regular Additional Modifications to Solid Foods: No overt s/s of aspiration with PO trials. Recommend unmodified diet textures REGULAR solids and THIN liquids, pills WHOLE with LIQUID. Recommend aspiration precautions given recent stroke. Patient may require assistance with tray set up d/t left side weakness. There are concerns surrounding patient's speech and language. He presents with mild to moderate dysarthria, and also reports short term memory difficulties. Recommend speech therapy during inpatient stay and at next level of care or on an outpatient basis after discharge. Oral Medication Intake: Whole with Liquid Please contact the pharmacy regarding appropriate crushable or liquid drug formulations that are available whenever modified delivery is recommended. Compensatory Strategies and Precautions to be Taken for Safe Swallow: Sitting Upright (90 deg) Small Bites and Sips Alternate Liquids/Solids Rate of Ingestion Change Supervision While Eating and Drinking for Safe Swallow: Total Supervision (1:1), Assist with tray set up Swallowing Recommended Treatments: Compens. Strategy Educat. Recommendation for Speech: Inpatient Speech Therapy Comment: dysarthria, expressive language, cognition Frequency/Duration: Daily Date Range for Service Req: M-F Automatic Brine Mixer Operator Clinican/Clinical Fellow: No Supervisory Statement: I have reviewed and agree with the student/clinical fellow's documentation: N/A Speech Language Pathologist: Leslie Meyers M.A., CCC-FOOT PRESS OPERATOR
--- NOTE | 2021-11-16 23:38 | PM.EVENT ---
Event Note Date of Service: 11/16/21 Event Note: AFib with RVR: Patient asymptomatic. BP 130/70. Heart rate sustaining in 140s. Given metoprolol IV push x1.
[2021-11-17] MEDS: Metoprolol Tartrate 5 MG/5 ML VIAL IVPUSH
[2021-11-17 01:30] LABS: Strep A Nucleic Acid Negative (Negative)
[2021-11-17 02:36] VITALS: BP 140/82; PULSE 135
[2021-11-17 04:00] VITALS: BP 143/80; PULSE 113; RESP 18; TEMP 36.4; O2SAT 98
[2021-11-17] MEDS: Levothyroxine Sodium 50 MCG TABLET PO (06:05)
[2021-11-17] MEDS: Lactated Ringers 1,000 ML 80 ML IVCONT (06:05)
[2021-11-17] MEDS: Omeprazole 20 MG CAPSULE.DR PO (06:05)
[2021-11-17 06:48] LABS: Hematocrit 43.1 % (42.0-52.0); Hemoglobin 14.4 g/dl (14.0-18.0); Mean Corpuscular HGB Conc 33.4 g/dl (31.0-36.0); Mean Corpuscular Hemoglobin 32.1 pg (27.0-33.0); Mean Corpuscular Volume 96.2 fL (80.0-98.0); Mean Platelet Volume 9.7 fL (9.4-12.4); Platelet Count 164 X10*3/uL (160-400); Red Blood Count 4.48 X10*6/uL (4.60-5.80); Red Cell Distribution Width 14.5 % (11.0-16.0); White Blood Count 10.7 X10*3/uL (4.8-10.8)
[2021-11-17 06:59] LABS: Anion Gap 13 (12-20); Blood Urea Nitrogen 13 mg/dL (9-16); Calcium 8.8 mg/dL (8.4-10.2); Carbon Dioxide 27 mmol/L (22-29); Chloride 100 mmol/L (96-108); Creatinine Clr Calc Pharmacy 45.6; Estimated Glomerular Filt Rate 52; Glucose Random 188 mg/dL (60-115); Potassium 4.1 mmol/L (3.3-5.1); Sodium 136 mmol/L (135-145)
[2021-11-17 07:34] VITALS: BP 148/88; PULSE 110; RESP 16; TEMP 37; O2SAT 97
[2021-11-17] MEDS: Metoprolol Succinate ER 50 MG TAB.ER.24H PO ×2 (08:34→21:38)
[2021-11-17] MEDS: allopurinoL 100 MG TABLET PO (08:34)
[2021-11-17] MEDS: Apixaban 5 MG TABLET PO ×2 (08:34→21:38)
[2021-11-17 08:38] LABS: Adenovirus PCR Not Detected (Not Detect.); Bordetella parapertussis PCR Not Detected (Not Detect.); Bordetella pertussis PCR Not Detected (Not Detect.); Chlamydia pneumoniae PCR Not Detected (Not Detect.); Coronavirus 229E PCR Not Detected (Not Detect.); Coronavirus HKU1 PCR Not Detected (Not Detect.); Coronavirus NL63 PCR Not Detected (Not Detect.); Coronavirus OC43 PCR Not Detected (Not Detect.); Human metapneumovirus PCR Not Detected (Not Detect.); Influenza A PCR Not Detected (Not Detect.); Influenza B PCR Not Detected (Not Detect.); Mycoplasma pneumoniae PCR Not Detected (Not Detect.); Parainfluenza 1 PCR Not Detected (Not Detect.); Parainfluenza 2 PCR Not Detected (Not Detect.); Parainfluenza 3 PCR Not Detected (Not Detect.); Parainfluenza 4 PCR Not Detected (Not Detect.); RSV PCR Not Detected (Not Detect.); Rhino/Enterovirus PCR Not Detected (Not Detect.); SARS-CoV-2 PCR Not Detected (Not Detect.)
[2021-11-17 11:28] VITALS: BP 150/98; PULSE 95; RESP 16; TEMP 36.3; O2SAT 96
--- NOTE | 2021-11-17 12:19 | MHC.CM.PN ---
met with pt and his dicussed acute rehab [facility] [place] referral will be made
--- NOTE | 2021-11-17 13:28 | HO.PM.IMPN ---
Subjective Subjective Date of Service: 11/18/21 Interval History: CC:afib with rvr ,sirs,Dysarthria/left facial droop inteval history: Still with intermittent episodes tachycardi Review of Systems no chest pain, no palpitation, no weakness Physical Exam Vital Signs: Vital Signs: Last Vital Signs Temp 97.4 F 11/17/21 11:28 Pulse 95 11/17/21 11:28 Resp 16 11/17/21 11:28 BP 150/98 H 11/17/21 11:28 Pulse Ox 96 11/17/21 11:28 BMI result Body Mass Index 23.8 Const: Other: General: AO X 3, no acute distress Resp: CTA bilateral CVS: S1,S2,RRR GI: +BS, NT, no distention Skin: No rash Neuro: slight weakness Psych: appropriate affect Objective Data Active Medications Acetaminophen (Acetaminophen 325 Mg Tablet) 650 mg PO Q6H PRN PRN Reason: Pain, Mild (Pain Scale 1-3) Allopurinol (Allopurinol 100 Mg Tablet) 100 mg PO DAILY [facility] Last Admin: 11/17/21 08:34 Dose: 100 mg Documented by: EVER Apixaban (Apixaban 5 Mg Tablet) 5 mg PO BID [facility] Last Admin: 11/17/21 08:34 Dose: 5 mg Documented by: EVER Benzocaine (Throat Lozenge, Medicated Lozenge) 1 lozenge MUCOUS MEM Q2H PRN PRN Reason: Sore Throat Docusate Sodium (Docusate Sodium 100 Mg Capsule) 100 mg PO DAILY PRN PRN Reason: Constipation Lactated Ringer's (Lr) 1,000 mls @ 80 mls/hr IVCONT .[id number] [facility] Last Admin: 11/17/21 06:05 Dose: 80 mls/hr Documented by: MANDY Levothyroxine Sodium (Levothyroxine Sodium 50 Mcg Tablet) 50 mcg PO DAILY@0600 [facility] Last Admin: 11/17/21 06:05 Dose: 50 mcg Documented by: MANDY Metoprolol Succinate (Metoprolol Succinate Er 50 Mg Tab.Er.24h) 50 mg PO BID [facility]; Protocol Last Admin: 11/17/21 08:34 Dose: 50 mg Documented by: EVER Metoprolol Tartrate (Metoprolol Tartrate 5 Mg/5 Ml Vial) 5 mg IVPUSH Q6H PRN PRN Reason: HR>125 Omeprazole (Omeprazole 20 Mg Capsule.Dr) 20 mg PO DAILY@0630 [facility] Last Admin: 11/17/21 06:05 Dose: 20 mg Documented by: MANDY Pharmacy Consult (Consult Rx Perform Med Rec) 1 each MISCELLANE ONCE PRN PRN Reason: Consult order Sodium Chloride (0.9 % Sodium Chloride Flush 3 Ml Syringe) 3 ml IVFLUSH QSHIFT [facility] Last Admin: 11/17/21 08:32 Dose: Not Given Documented by: EVER Non-Admin Reason: IV Running Labs CBC & Chem 7: 11/17/21 06:13 11/17/21 06:13 Labs: Laboratory Results - last 24 hr 11/16/21 11/17/21 11/17/21 23:55 01:00 06:13 MCV 96.2 MCH 32.1 MCHC 33.4 RDW 14.5 Plt Count 164 MPV 9.7 Absolute Nucleated RBC 0.000 Nucleated RBC % (auto) 0.0 Anion Gap Estim Creat Clear Calc Estimated GFR Random Glucose Calcium Respiratory Panel Fuentes See Note Adenovirus (Rapid PCR) Not Detected B.pert (TEM-PCR) Not Detected B.parapertussis DNA PCR Not Detected C. pneumoniae DNA (PCR) Not Detected Coronavirus OC43 (PCR) Not Detected Coronavirus HKU1 (PCR) Not Detected Coronavirus 229E (PCR) Not Detected Coronavirus NL63 (PCR) Not Detected Human Metapneumovir PCR Not Detected Influenza A (RT-PCR) Not Detected Influenza B (RT-PCR) Not Detected M. pneumoniae (PCR) Not Detected Parainfluenza 1 (PCR) Not Detected Parainfluenza 2 (PCR) Not Detected Parainfluenza 3 (PCR) Not Detected Parainfluenza 4 (PCR) Not Detected RSV (PCR) Not Detected Entero/Rhino (PCR) Not Detected SARS-CoV-2 RNA (RT-PCR) Not Detected S. pyogenes GrpA BIANCA Negative 11/17/21 06:13 MCV MCH MCHC RDW Plt Count MPV Absolute Nucleated RBC Nucleated RBC % (auto) Anion Gap 13 Estim Creat Clear Calc 45.6 Estimated GFR 52 Random Glucose 188 H Calcium 8.8 Respiratory Panel Fuentes Adenovirus (Rapid PCR) B.pert (TEM-PCR) B.parapertussis DNA PCR C. pneumoniae DNA (PCR) Coronavirus OC43 (PCR) Coronavirus HKU1 (PCR) Coronavirus 229E (PCR) Coronavirus NL63 (PCR) Human Metapneumovir PCR Influenza A (RT-PCR) Influenza B (RT-PCR) M. pneumoniae (PCR) Parainfluenza 1 (PCR) Parainfluenza 2 (PCR) Parainfluenza 3 (PCR) Parainfluenza 4 (PCR) RSV (PCR) Entero/Rhino (PCR) SARS-CoV-2 RNA (RT-PCR) S. pyogenes GrpA BIANCA Microbiology Microbiology Results: Microbiology 11/15/21 08:42 Blood Culture - Preliminary Blood - Venous No growth after 48 hours. 11/15/21 08:12 Blood Culture - Preliminary Blood - Venous No growth after 48 hours. Assessment and Plan (1) Cerebral infarction: Status: Acute (2) Atrial fibrillation with rapid ventricular response: Status: Acute (3) XENIA (acute kidney injury): Status: Acute Plan 71-year-old male with history of atrial fibrillation on Eliquis, hypothyroidism, CKD 3 among others who presents to the emergency department this morning with left-sided facial droop and dysarthria found to be in atrial fibrillation with rapid ventricular response, uncontrolled hypertension 1.Dysarthria/left facial droop Dysarthria resolved, facial droop persists and peristent left sided weakness Brain CT, CTA negative,MRI brain -?mild left hemiparesis an MRI of brain revealed an acute right subcortical ischemic infarction. Tele monitoring, neuro checks Neurology consult -patient has acute stroke above, recommended to continue anticoagulation and recommended compliance with Eliquis. lipid profile,swallow eval,OT eval. PT eval recommended acute rehab. 2.SIRS pt met sirs criteria with tachycardia, tachypnea, leukocytosis:improving Lactic acid elevated 2.7-improving No source of infection identified at this time Urinalysis, chest x-ray negative Received empiric antibiotics in the ED-UA neg ,blood culture prelim@24 hrs neg res panel and throat cultures added Id eval -noted: added echo , no antibiotcs 3.Atrial fibrillation with rapid ventricular response, has history of chronic AFib on Eliquis. Persistent tachycardia- 4.Elevated lactic acid May be secondary to dehydration.? No evidence of infection to suggest sepsis Received IV fluid-repeated lactic acid trending down ,defer further lactic acid. Adding digoxine 5.Hypomagnesemia Received IV magnesium in ED repleted , resolved. 6. hypertension: imrpoving adjusted metoprolol 50 mg bid. 7.Mediastinal edenopathy will need outpatient chest CT follow up 8.Hypothyroidism TSH/free T4 pending Continue home dose of levothyroxine 9.Esophagitis/GERD Continue meds. 10 Mild XENIA: improving with po intake , continue gentle hydration DVT prophylaxis-Eliquis Inpatient need : Persistent AFIB with RVR and adjusting meds Quality Stroke Does the patient have a stroke diagnosis?: No VTE Prior VTE?: No VTE Risk Level:: Medical - moderate - high VTE Device Contraindication: N/A - Device Ordered VTE Drug Contraindication: N/A - Med Ordered
[2021-11-17 16:00] VITALS: BP 142/90; PULSE 91; RESP 18; TEMP 36.6; O2SAT 97
--- NOTE | 2021-11-17 16:20 | PC.NURSE ---
fluids stopped per verbal order from Dr Martinez.
--- NOTE | 2021-11-17 16:20 | MHC.CM.PN ---
nallely unable to accept pt due to high heart rate
[2021-11-17] MEDS: 0.9 % Sodium Chloride Flush 3 ML SYRINGE IVFLUSH ×2 (16:22→21:39)
[2021-11-17] MEDS: LORazepam 0.5 MG TABLET PO ×2 (16:22→21:38)
--- NOTE | 2021-11-17 16:24 | MHC.CM.PN ---
pts heart rate to high nallely unable to accept pt at this time
--- NOTE | 2021-11-17 16:45 | MHC.SP.ADU ---
Referring provider: Dr. Blount Reason for Referral: CVA Type of Treatment: [id number] Clinical Swallowing Evaluation Date of Plan of Treatment: 11/17/21 Onset of Symptoms/Illness: 11/16/21 Date Treatment Started: 11/16/21 Medical Diagnosis: Pt came to ER w/ L facial Droop, slurred speech, DX: CVA- MRI Focal acute infarct R basal ganglia R kumari Radiata. Also AFib Primary Speech Language Diagnosis: R47.1 Dysarthria Secondary Speech Language Diagnosis: R47.1 Dysarthria History Pt is a 71 y.o. man who had sudden onset L facial droop, dysarthria, L sided weakness. MRI revealed focal infarct (See MRI note above). Pt has additionally had Afib w/ SIRS. 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 Medical History: Other: HTN, Hypothyroid, GERD, XENIA, DVT Medication List: Please see chart Recent Hospitalizations: No Respiratory Needs: Room Air Patient Orientation: Alert & Oriented x 4 Social History: Employment Status: Retired Highest level of education obtained: Completed High School/GED Current Living Situation: Lives in private home w/ Assistive Devices in use: Glasses/Contacts Comment: c/o difficulty hearing, particularly L ear. Past Speech Language Therapy: UNK Other Therapies Seen in Current Calendar Year: Other: Swallowing History: Dysphagia Specific: Within Functional Limits Comments: Please see BSE of 11/16/21 Pre-eval Risk for Aspiration: Neurological Condition Pre-evaluation Dietary Consistencies: Pre-eval Liquid Intake: Pre-eval Medication Intake: Reported Speech, Language, Cognition difficulties: Speaking Comments: Pt w/ mild dysarthria, mildly slurred speech. Quality of Life: Patient Stated Goal of Speech-Language Therapy: Assess speech/language Assessment Speech Production: Dysarthric Clinical Impression: Impaired Observations: Mildly impaired speech, imprecise articulation due to dysarthria. Informal Voice Assessment: Voice Loudness: Normal Voice Nasal Resonance: Normal Voice Oral Resonance: Normal Voice Phonatory-based Quality: Normal Voice Pitch: Normal Voice Other Observations: Clinical Impression: Intact Clinicial Observations: Tests of Speech & Lang Adults: WAB-R BNT Clinical Impression: Intact Observations: On screening tests of the BNT and WAB-R, Pt evidenced Expressive and Receptive Language WNL. Tests of Cognition: Clinical Impression: Observations: Augmentative and Alternative Communication: Observations: Impressions and Recommendations Summary: Impact on Daily Function/Activity Limitations: Daily Activities: Mild Interpersonal Interactions: Mild Education: Employment: Community: Mild Prognosis for Improvement: Good Comment: On screening of receptive expressive language, Pt presents as WNL. Pt presents w/ mild dysarthria, characterized by imprecise articulation resulting in slurred sounding speech. Pt c/o difficulty w/ memory prior to stroke, had been noticing more difficulty with recalling short term information over the past several months. May benefit from some additional cognitive testing. Pt would benefit from speech therapy to improve speech clarity, would recommend services continue through [facility] after discharge from hospital. Recommendation for Speech Therapy: Further Testing Needed Inpatient Speech Therapy Speech Therapy through [facility] Frequency/Duration: Date Range for Service Requested: M-F Time to Reassess: Mcfp Goals: Short Term Goals: Goal # : Goal Status: Goal# : Goal Status: Goal # : Goal Status: Goal # : Goal Status: Recommended Referrals to be Discussed with Primary Care Provider: Patient Education: Completed: Yes Patient/Caregiver Education: Described Results of Evaluation Patient expressed understanding of evaluation Comments/Barriers to Learning: Personal Counselor Clinican/Clinical Fellow: No Supervisory Statement: N/A Speech Language Pathologist: Kala Dial M.A., CCC-ASSISTANT PROFESSOR OF THEATER
[2021-11-17 19:18] VITALS: BP 162/92; PULSE 76; RESP 18; TEMP 36.7; O2SAT 97
[2021-11-18] VITALS (8 sets, daily range): BP systolic 124–156; BP diastolic 52–90; PULSE 70–121; RESP 16–20; TEMP 35.9–36.8; O2SAT 94–98
[2021-11-18] MEDS: Metoprolol Tartrate 5 MG/5 ML VIAL IVPUSH
--- NOTE | 2021-11-18 06:06 | PC.NURSE ---
CARE ASSUMED 23;15..AWAKE..ALERT..ORIENTED X3..SLIGHT LEFT FACIAL DROOP PRESENT...MUNOZ...REMAINS ATRIAL FIB...RBBB...HR 130'S AT HS...PRN IV LOPRESSOR GIVEN PER OCT...HR 110'S-120'S AFTERWARDS..HR GOAL <125.....ASYMPTOMATIC..RESPIRATIONS EASY...TEXAS CATHETER IN PLACE..DRAINED 1400ml OVERNIGHT...OOB TO RECLINER PER REQUEST..AMBULATED TO CHAIR WITH MINIMAL ASSIST..AWAKE..WATCHING TV
[2021-11-18] MEDS: Levothyroxine Sodium 50 MCG TABLET PO (06:35)
[2021-11-18] MEDS: Omeprazole 20 MG CAPSULE.DR PO (06:36)
[2021-11-18] MEDS: Metoprolol Succinate ER 50 MG TAB.ER.24H PO ×2 (10:01→20:02)
[2021-11-18] MEDS: 0.9 % Sodium Chloride Flush 3 ML SYRINGE IVFLUSH ×2 (10:01→15:55)
[2021-11-18] MEDS: allopurinoL 100 MG TABLET PO (10:01)
[2021-11-18] MEDS: Apixaban 5 MG TABLET PO ×2 (10:01→20:01)
[2021-11-18] MEDS: Digoxin 0.25 MG TABLET PO ×2 (12:54→18:27)
[2021-11-18] MEDS: Acetaminophen 325 MG TABLET 650 MG PO ×2 (13:58→22:16)
[2021-11-18] MEDS: LORazepam 0.5 MG TABLET PO ×2 (13:59→22:16)
[2021-11-18] MEDS: diphenhydrAMINE HCL 25 MG TABLET PO (18:27)
[2021-11-19] MEDS: 0.9 % Sodium Chloride Flush 3 ML SYRINGE IVFLUSH ×2 (01:07→08:37)
[2021-11-19 03:27] VITALS: BP 152/80; PULSE 79; RESP 19; TEMP 36.1; O2SAT 95
[2021-11-19] MEDS: Levothyroxine Sodium 50 MCG TABLET PO (06:40)
[2021-11-19] MEDS: Omeprazole 20 MG CAPSULE.DR PO (06:40)
[2021-11-19 07:32] VITALS: BP 142/90; PULSE 93; RESP 18; TEMP 36.6; O2SAT 98
[2021-11-19] MEDS: allopurinoL 100 MG TABLET PO (08:36)
[2021-11-19] MEDS: Apixaban 5 MG TABLET PO (08:36)
[2021-11-19] MEDS: Metoprolol Succinate ER 50 MG TAB.ER.24H PO (08:36)
[2021-11-19] MEDS: Fluticasone Propionate Nasal 16 GM SPRAY 1 SPRAY NOSTRIL-B (08:37)
[2021-11-19] MEDS: Digoxin 0.125 MG TABLET PO (10:17)
--- NOTE | 2021-11-19 10:25 | P.PNIM_ITS ---
Subjective Subjective Date of Service: 11/19/21 Interval History: CC:afib with rvr ,sirs,Dysarthria/left facial droop inteval history: Tachycardia is better, other than he's doing ok Review of Systems left sided weakness no palpitation Physical Exam Vital Signs: Vital Signs: Last Vital Signs Temp 97.8 F 11/19/21 07:32 Pulse 93 11/19/21 07:32 Resp 18 11/19/21 07:32 BP 142/90 H 11/19/21 07:32 Pulse Ox 98 11/19/21 07:32 BMI result Body Mass Index 23.8 Const: Other: General: AO X 3, no acute distress Resp: CTA bilateral CVS: S1,S2,RRR GI: +BS, NT, no distention Skin: No rash Neuro: slight weakness Psych: appropriate affect Objective Data Active Medications Acetaminophen (Acetaminophen 325 Mg Tablet) 650 mg PO Q6H PRN PRN Reason: Pain, Mild (Pain Scale 1-3) Last Admin: 11/18/21 22:16 Dose: 650 mg Documented by: ANGELINA Allopurinol (Allopurinol 100 Mg Tablet) 100 mg PO DAILY [facility] Last Admin: 11/19/21 08:36 Dose: 100 mg Documented by: BASIA Apixaban (Apixaban 5 Mg Tablet) 5 mg PO BID [facility] Last Admin: 11/19/21 08:36 Dose: 5 mg Documented by: BASIA Benzocaine (Throat Lozenge, Medicated Lozenge) 1 lozenge MUCOUS MEM Q2H PRN PRN Reason: Sore Throat Digoxin (Digoxin 0.125 Mg Tablet) 0.125 mg PO DAILY [facility] Last Admin: 11/19/21 10:17 Dose: 0.125 mg Documented by: BASIA Diphenhydramine HCl (Diphenhydramine Hcl 25 Mg Tablet) 25 mg PO Q6H PRN PRN Reason: Allergic Symptoms Last Admin: 11/18/21 18:27 Dose: 25 mg Documented by: ANGELINA Docusate Sodium (Docusate Sodium 100 Mg Capsule) 100 mg PO DAILY PRN PRN Reason: Constipation Fluticasone Propionate (Fluticasone Propionate Nasal 16 Gm [place]) 1 spray NOSTRIL-B BID [facility] Last Admin: 11/19/21 08:37 Dose: 1 spray Documented by: BASIA Levothyroxine Sodium (Levothyroxine Sodium 50 Mcg Tablet) 50 mcg PO DAILY@0600 [facility] Last Admin: 11/19/21 06:40 Dose: 50 mcg Documented by: MEGAN Lorazepam (Lorazepam 0.5 Mg Tablet) 0.5 mg PO Q4H PRN PRN Reason: Anxiety Last Admin: 11/18/21 22:16 Dose: 0.5 mg Documented by: ANGELINA Metoprolol Succinate (Metoprolol Succinate Er 50 Mg Tab.Er.24h) 50 mg PO BID [facility]; Protocol Last Admin: 11/19/21 08:36 Dose: 50 mg Documented by: BASIA Metoprolol Tartrate (Metoprolol Tartrate 5 Mg/5 Ml Vial) 5 mg IVPUSH Q6H PRN PRN Reason: HR>125 Last Admin: 11/18/21 00:00 Dose: 5 mg Documented by: RO Omeprazole (Omeprazole 20 Mg Capsule.Dr) 20 mg PO DAILY@0630 [facility] Last Admin: 11/19/21 06:40 Dose: 20 mg Documented by: MEGAN Pharmacy Consult (Consult Rx Perform Med Rec) 1 each MISCELLANE ONCE PRN PRN Reason: Consult order Sodium Chloride (0.9 % Sodium Chloride Flush 3 Ml Syringe) 3 ml IVFLUSH QSHIFT [facility] Last Admin: 11/19/21 08:37 Dose: 3 ml Documented by: BASIA Labs CBC & Chem 7: 11/17/21 06:13 11/17/21 06:13 Microbiology Microbiology Results: Microbiology 11/16/21 23:55 Throat Culture - Final Throat No Group A Beta-hemolytic Streptococci isolated. Assessment and Plan (1) Atrial fibrillation with rapid ventricular response: Status: Acute Plan 71-year-old male with history of atrial fibrillation on Eliquis, hypothyroidism, CKD 3 among others who presents to the emergency department this morning with left-sided facial droop and dysarthria found to be in atrial fibrillation with rapid ventricular response, uncontrolled hypertension 1.Dysarthria/left facial droop Dysarthria resolved, facial droop persists and peristent left sided weakness Brain CT, CTA negative,MRI brain -?mild left hemiparesis an MRI of brain revealed an acute right subcortical ischemic infarction. Tele monitoring, neuro checks Neurology consult -patient has acute stroke above, recommended to continue anticoagulation and recommended compliance with Eliquis. PT is recommending STR 2.SIRS pt met sirs criteria with tachycardia, tachypnea, leukocytosis:improving Lactic acid elevated 2.7-improving No source of infection identified at this time Urinalysis, chest x-ray negative Received empiric antibiotics in the ED-UA neg ,blood culture prelim@24 hrs neg res panel and throat cultures added Id eval -noted: added echo , no antibiotcs 3.Atrial fibrillation with rapid ventricular response, has history of chronic AFib on Eliquis. Persistent tachycardia- change Toprol to 75 and digoxin added. check level in a week 5.Hypomagnesemia---correccted 6. hypertension: imrpoving adjusted metoprolol continue metoprolol 7.Mediastinal edenopathy will need outpatient chest CT follow up 8.Hypothyroidism TSH/free T4 pending Continue home dose of levothyroxine 9.Esophagitis/GERD Continue meds. 10 Mild XENIA: improving with po intake , continue gentle hydration DVT prophylaxis-Eliquis Inpatient need : Persistent AFIB with RVR and adjusting meds Quality Stroke Does the patient have a stroke diagnosis?: No VTE Prior VTE?: No VTE Risk Level:: Medical - moderate - high VTE Device Contraindication: N/A - Device Ordered VTE Drug Contraindication: N/A - Med Ordered
[2021-11-19 10:35] VITALS: PULSE 93; O2SAT 98
[2021-11-19] MEDS: LORazepam 0.5 MG TABLET PO (10:43)
[2021-11-19 11:55] VITALS: BP 169/90; PULSE 101; RESP 20; TEMP 36.1; O2SAT 98
--- NOTE | 2021-11-19 12:38 | MHC.CM.PN ---
IMM 11/19/21 Male 71 S/P CVA He is discharged home today. He will receive out patient PT and [facility]. His is providing transportation home.
[2021-11-19] MEDS: Metoprolol Succinate ER 25 MG TAB.ER.24H PO (13:03)
--- NOTE | 2021-11-19 14:08 | W.MHC.F2F ---
Service Date Service Date: 11/20/21 Encounter Date of encounter: 11/19/21 Reasons for Services Signs and symptoms assessed: left sided weakness, difficulty with speech Reason for physical therapy: therapeutic exercises and gait/transfer training Reason for speech therapy: speech impairment Homebound: Leaving the home is medically contraindicated at this time without the asist of a device and/or another person due th the listed conditions above and below. Reason homebound: fall risk related to blood pressure changes and leg weakness Homebound supporting statement: Homebound due to left sided weakness related to stroke as well as speech impairment? and therefore needs the assistance of another person Certification: Based on the above findings, I certify that this patient is confined to the home and needs intermittent group home care, physical therapy and/or speech therapy, or continues to need occupational therapy. The patient is under my care, and I have initiated the establishment of the plan of care. The patient will be followed by a physician who will periodically review the plan of care.
--- NOTE | 2021-11-19 14:48 | MHC.SL.SOA ---
Referring Provider: Dr. Blount Reason for Referral: CVA Date of Plan of Treatment:11/17/21 Onset of Symptoms/Illness:11/16/21 Date Treatment Started:11/16/21 Medical Diagnosis:Pt came to ER w/ L facial Droop, slurred speech, DX: CVA- MRI Focal acute infarct R basal ganglia R kumari Radiata. Also AFib Primary Speech Language Diagnosis:R47.1 Dysarthria Secondary Speech Language Diagnosis:R41.841 Cognitive communication disorder Number of Authorized Visits Remaining: Authorization End Date: Reason for Visit:[id number] Individual Treatment Other: Subjective:Pt seen for Dysarthria [place] at bedside. Pt was sitting in armchair w/ Pt's present in room. Pt was pleasant and cooperative with all tasks presented. Pt reported that he had difficulty producing sounds as a child and had been tracked into different classes because if it, and needed to attend summer school. Pt's facial asymmetry is improved from 11/17, able to approximate a symmetrical smile. Objective: Pt completed the following Oral Motor Exercises: Alternate Smile/Pucker: Needed additional visual cue to make pucker, completed 5 reps, w/ some reduced ROM Puff cheeks: Mild air escape when trapping air, able to hold three seconds and release, completed 6 reps. Lingual movement: could lateralize tongue r/l, resist against spoon r/l and anteriorly, still had difficulty elevating tongue tip to lip. p/t/k: Imprecise on /k/ sound, on repetition sequence, can sustain 3 reps before fading/losing rhythm p/b word contrasts: consistently accurate on initial sound /p/ in initial word (100%), Mild misarticulation/less clarity on second word initial /b/ 60% Assessment:Pt presents with mild to moderate dysarthric speech secondary to CVA, with some improvement of left sided weakness, labial and lingual ROM noted today. Noted today: as articulation task increases in length, imprecise articulation increases. Pt is highly cooperative and a good candidate for therapy. Notes: No overt s/s of aspiration with PO trials. Recommend unmodified diet textures REGULAR solids and THIN liquids, pills WHOLE with LIQUID. Recommend aspiration precautions given recent stroke. Patient may require assistance with tray set up d/t left side weakness. Patient presents with mild dysarthria, left side facial droop evident at rest and during labial retraction, moderate memory difficulties, moderate language impairment. Recommend speech therapy during inpatient stay and at next level of care or on an outpatient basis after discharge for dysarthria and cognitive linguistic skills. Plan: Goal # : Status of Goal: Goal # : Status of Goal: Goal # : Status of Goal: Goal # : Status of Goal: Seen by: Graduate/Clinical Fellow: No Supervisory Statement: f_Reg Query Last Value , [facility] Speech Language Pathologist: Kala Dial M.A., [facility]GARMENT FORM ASSEMBLER
[2021-11-19 15:46] VITALS: BP 172/100; PULSE 84; RESP 15; O2SAT 96
--- NOTE | 2021-11-19 16:31 | PM.DS ---
DS: Providers Provider Date of Service: 11/22/21 Date of admission: 11/15/21 10:29 Primary care physician: Parth Rajan MD Consults: 11/15/21 10:53 Consult to Neurology Routine Consulting Provider: [facility] Reason for consultation: left facial droop, dysarthria Has provider been notified: No 11/15/21 18:49 Consult to Infectious Diseases Routine Consulting Provider: Wendy Harper Reason for consultation: sirs Has provider been notified: No DS: Diagnosis Discharge Diagnosis (1) Atrial fibrillation with rapid ventricular response: Status: Acute DS: Summary Hospital Course Hospital Course: Left side facial droop?<LEORA Kruger - Last Filed: 11/15/21 11:07> ? ? ? This is a 71-year-old male who presents to the emergency department not feeling well.? He woke up this morning was not feeling well. When he tried to get up but was unable to and may have had some weakness on the left side. He also felt like he was drooling from the left side of the mouth. His speech was also reported as garbled at the time of arrival.? Brain CT and brain CTA were both negative.? The patient takes Eliquis at home for atrial fibrillation and therefore he was not a tPA candidate.? He was also noted to be tachycardic, EKG showed atrial fibrillation with rapid ventricular response.? He received a dose of IV Cardizem with improvement in his heart rate.? Blood pressure was also elevated at 203/126, his blood pressure improved and is 145/89 at this time. He was afebrile, no source of infection was identified, urinalysis and chest x-ray were unremarkable.? Magnesium level was low at 1.4 and he received a dose of IV magnesium.? Lactic acid was elevated at 2.7.? He received IV fluid as well as empiric antibiotics.? At this time patient's speech appears to have returned to normal.? He continues to have left-sided facial droop.? No weakness noted on the left side.? COVID-19, RSV, flu swab negative.? Of note patient did have root canal but that was 4-6 weeks ago and he has completed course of antibiotics. Hospial course: 1.Dysarthria/left facial droop Dysarthria resolved, facial droop persists and peristent left sided weakness Brain CT, CTA negative,MRI brain -?mild left hemiparesis an MRI of brain revealed an acute right subcortical ischemic infarction. Will continue medical therapy with eliquis, statin, and anticoagulation for AFIB 2.SIRS--No soruce of infection and therefore no antibiotics recommended. 3.Atrial fibrillation with rapid ventricular response, has history of chronic AFib on Eliquis. Med have been adjusted with increase in toprol to 75 bid and digoxin added at 0.625 daily and will check level within a week 5.Hypomagnesemia---correccted 6. 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 10 Mild XENIA:resolved. Plan discussed with . Time Spent with Patient Time attestation: Total time spent providing and/or coordinating discharge services: Discharge coordination time: Greater than 30 minutes Quality: Stroke Does the patient have a stroke diagnosis?: Yes Reason for No Anti-thrombotic at DC: N/A - Med Ordered Reason for No Anticoagulant at DC: N/A - Med Ordered Reason Not Initiating IV-Tpa: Drug treatment not indicated Reason for No Anti-thrombotic by Day Two: N/A - Med Ordered Reason for No Statin at DC: N/A - Med Ordered Physical Exam Vital Signs: Vital Signs: Last Vital Signs Temp 96.9 F 11/19/21 11:55 Pulse 84 11/19/21 15:46 Resp 15 11/19/21 15:46 BP 172/100 H 11/19/21 15:46 Pulse Ox 96 11/19/21 15:46 BMI result Body Mass Index 23.8 DS: Data Data Completed and Pending Labs on day of discharge: Preliminary micro results at discharge 11/15/21 08:42 Blood Culture - Preliminary Blood - Venous No growth after 48 hours. 11/15/21 08:12 Blood Culture - Preliminary Blood - Venous No growth after 48 hours. Discharge Plan Discharge Anticipated Discharge Date/Time: 11/19/21 16:23 Patient Disposition: Home Health Service Discharge Diagnosis: Acute stroke, AFIB Referrals: Physical Therapy - [facility] [Outside] - 1 Week [facility] [place] [facility] [Outside] - 1 Week Po,Parth Buchanan MD [Primary Care Provider] - 1 Week Discharge Medications: New metoprolol succinate 50 mg Tablet Extended Release 24 Hr 75 mg PO BID Qty: 120 0RF Protocol: Hold for SBP/HR < HOLD for SBP < : 90 HOLD for HR < : 60 digoxin 62.5 mcg (0.0625 mg) tablet 62.5 mcg PO DAILY Qty: 30 0RF lorazepam [Ativan] 0.5 mg tablet 0.5 mg PO Q6H PRN (Reason: anxiety) Qty: 6 0RF Continued levothyroxine 50 mcg tablet 50 mcg PO QAM 90 Days Qty: 90 3RF Eliquis 5 mg tablet 5 mg PO BID Qty: 180 3RF fluticasone propionate 50 mcg/actuation [place],Suspension 1 spray INTRANASAL BID PRN (Reason: Allergy Symptoms) 0RF Rx Instructions: administer into each nostril psyllium husk [Metamucil] 0.4 gram Capsule 0.8 g PO DAILY 0RF omeprazole 20 mg capsule,delayed release(DR/EC) 20 mg PO DAILY@0630 0RF allopurinol 100 mg tablet 100 mg PO DAILY 0RF Discontinued metoprolol succinate 25 mg tablet extended release 24 hr 25 mg PO BID Qty: 180 2RF Discharge Orders: Discharge Order (Routine); Ordered 11/19/21 Ordered By: Jaden Martinez Diet: advance to usual diet Activity on Discharge: As tolerated Stand Alone Forms: Patient Portal Discharge page Other Ambulatory Orders: Digoxin (Routine) Timeframe: [id number] Facility: [facility] - Location: Laboratory Ordered By: Jaden Martinez Care Plan Goals: prevent rehospitalization and control of heart rate Health Concerns: stroke and atrial fibrilation Plan of Treatment: Toprolol XL has been increased to 75 mg twice daily Take Digoxin 0.125 mg MoWeFr--check level in a week Outpatient physical therapy and speech therapy I went over dc plan with an debt recovery officer: as above Discharge Date/Time: 11/19/21 18:28
--- NOTE | 2021-11-20 13:12 | P.F2F_ITS ---
Service Date Service Date: 11/20/21 Encounter Date of encounter: 11/19/21 Reasons for Services Signs and symptoms assessed: left sided weakness and difficulty with speech due to stroke Reason for residential: neurological assessment and medication management Reason for physical therapy: home safety and mobility, therapeutic exercises and gait/transfer training Reason for speech therapy: speech impairment Homebound: Leaving the home is medically contraindicated at this time without the asist of a device and/or another person due th the listed conditions above and below. Reason homebound: unsteady gait / fall risk, fall risk related to blood pressure changes, leg weakness and other Homebound supporting statement: Homebound due to left sided weakness related to stroke as well as speech impairment and therefore needs the assistance of another person Certification: Based on the above findings, I certify that this patient is confined to the home and needs intermittent residential care, physical therapy and/or speech therapy, or continues to need occupational therapy. The patient is under my care, and I have initiated the establishment of the plan of care. The patient will be followed by a physician who will periodically review the plan of care.
== END 2021-11-19 18:28 | disposition home health service (06) | DRG 65 ==
LOC: HO.ED 06:43 → HO.EDOVER 10:39 → HO.IMC 16:40
PROVIDERS: Internal Medicine; Admitting Provider Physician Assistant Medical; Emergency Provider Emergency Medicine; PCP Internal Medicine; Visit Provider Internal Medicine
DX: I63.50 Cerebral infarction due to unspecified occlusion or stenosis of unspecified cerebral artery (principal); I48.20 Chronic atrial fibrillation, unspecified; R65.10 Systemic inflammatory response syndrome (SIRS) of non-infectious origin without acute organ dysfunction; G81.94 Hemiplegia, unspecified affecting left nondominant side; N17.9 Acute kidney failure, unspecified; E87.2 Acidosis; M10.9 Gout, unspecified; R29.810 Facial weakness; E83.42 Hypomagnesemia; R29.702 NIHSS score 2; K21.00 Gastro-esophageal reflux disease with esophagitis, without bleeding; D72.829 Elevated white blood cell count, unspecified; I10 Essential (primary) hypertension; E86.0 Dehydration; I12.9 Hypertensive chronic kidney disease with stage 1 through stage 4 chronic kidney disease, or unspecified chronic kidney disease; N18.30 Chronic kidney disease, stage 3 unspecified; R59.0 Localized enlarged lymph nodes; E03.9 Hypothyroidism, unspecified; I45.10 Unspecified right bundle-branch block; Z20.822 Contact with and (suspected) exposure to COVID-19; Z79.51 Long term (current) use of inhaled steroids; Z79.890 Hormone replacement therapy; Z79.899 Other long term (current) drug therapy
CPT/HCPCS: 36415; 70450; 70496; 70498; 70551; 71045; 80048; 80061; 80076; 81003; 82947; 83605; 83690; 83735; 84443; 84484; 85025; 85027; 85610; 85730; 87040; 87071; 87502; 87633; 87635; 87651; 92507; 92610; 93005; 93306; 96361; 96365; 96375; 97110; 97112; 97162; 97166; 97530; 99285; 99291; J0696; J2060; J3475; Q0163; Q9967

== ENCOUNTER 2021-11-26 11:18 | Outpatient (REF) | payer MEDICARE, SELFPAY ==
[2021-11-26 13:20] LABS: Digoxin < 0.3 ng/mL (0.8-2.0)
== END 2021-11-26 11:19 | disposition home or self-care (01) ==
LOC: HO.LAB 11:18
PROVIDERS: PCP Internal Medicine; Visit Provider Internal Medicine
DX: I48.91 Unspecified atrial fibrillation (principal); Z79.899 Other long term (current) drug therapy
CPT/HCPCS: 36415; 80162

== ENCOUNTER → 2021-12-16 11:14 | Outpatient (BNVA) | payer MEDICARE, SELFPAY | PROVIDERS: PCP Internal Medicine; Referring Provider Internal Medicine; Visit Provider Internal Medicine Cardiovascular Disease | DX: I69.954 Hemiplegia and hemiparesis following unspecified cerebrovascular disease affecting left non-dominant side (principal); I48.20 Chronic atrial fibrillation, unspecified; I42.9 Cardiomyopathy, unspecified; I10 Essential (primary) hypertension; Z79.899 Other long term (current) drug therapy; Z79.01 Long term (current) use of anticoagulants | CPT/HCPCS: 99212 ==

== ENCOUNTER 2021-12-22 07:36 | Outpatient (REF) | payer MEDICARE, SELFPAY ==
[2021-12-22 08:53] LABS: Anion Gap 14 (12-20); Blood Urea Nitrogen 23 mg/dL (9-16); Calcium 9.8 mg/dL (8.4-10.2); Carbon Dioxide 27 mmol/L (22-29); Chloride 101 mmol/L (96-108); Estimated Glomerular Filt Rate 46; Potassium 4.8 mmol/L (3.3-5.1); Sodium 137 mmol/L (135-145)
[2021-12-22 09:05] LABS: Uric Acid 7.1 mg/dL (3.4-7.0)
== END 2021-12-22 07:37 | disposition home or self-care (01) ==
LOC: HO.LAB 07:36
PROVIDERS: PCP Internal Medicine; Visit Provider Internal Medicine Nephrology
DX: I12.9 Hypertensive chronic kidney disease with stage 1 through stage 4 chronic kidney disease, or unspecified chronic kidney disease (principal); N18.31 Chronic kidney disease, stage 3a
CPT/HCPCS: 36415; 80051; 82310; 82565; 84520; 84550

== ENCOUNTER → 2021-12-24 07:26 | Outpatient (REF) | payer MEDICARE, SELFPAY ==
--- NOTE | 2021-12-24 07:30 | CA_ITS ---
Transthoracic Echocardiogram Patient (Last, First, Middle): Gabriele Harris H Gender: Male Date of : 1950 Age: 71 Procedure Date: 12/24/2021 Procedure Type: Transthoracic Echocardiogram Location: OP Height: 167.64 cm Weight: 72.58 kg BSA: 1.82 m2 Heart Rate: bpm BP: 138 / 72 mmHg Lock Up Worker: SARAH BETH Portillo MD: Chas Gonzalez MD Skid Man: Chas Gonzalez MD Symptoms: I42.9 Study Quality: Adequate ECG Rhythm: Atrial Fibrillation Conclusions: - Normal LV systolic function Findings Left Ventricle Normal left ventricular size, thickness, and systolic function. The visually estimated ejection fraction is between 55-60%. Diastolic function is indeterminate on the basis of available data. Pericardium/Pleural There is no evidence of pericardial effusion. Prior Study Comparison Changes noted compared to prior study dated: 11/16/2021. LV systolic function is normal on this study Measurements 2D Linear Measurements IVSd: 0.94 0.6-0.9/0.6-1.0 cm LVIDd: 4.54 3.9-5.3/4.2-5.9 cm LVIDd Index: 2.49 2.4-3.2/2.2-3.1 cm/m2 LVIDs: 2.76 2.0-3.6 cm LVPWd: 0.98 0.7-1.1 cm LV Mass: 182.01 67-162/88-224 g LV Mass Index: 100.01 43-95/49-115 g/m2 2D Systolic Function EF 4C: 59.60 >55% EF 2C: 50.70 >55% EF BiP: 55.60 >55% Updated in Other Vendor System with Status of Final Chas Gonzalez MD electronically signed on 12/25/2021 2:46:50 PM with status of Final
== END ==
LOC: HO.CARD 07:26
PROVIDERS: PCP Internal Medicine; Visit Provider Internal Medicine Cardiovascular Disease
DX: I42.9 Cardiomyopathy, unspecified (principal)
CPT/HCPCS: 93308

== ENCOUNTER → 2022-01-27 07:00 | Outpatient (REF) | payer MEDICARE, SELFPAY ==
--- NOTE | 2022-01-27 07:13 | HM_ITS ---
* Total monitoring time 3 days and 2 hours. * Underlying rhythm is atrial fibrillation. * Average rate 79/Min. Range 72 to 119/Min. * No significant pauses. * Frequent PVCs. Overall burden 4.6%. 2 morphologies. 126 couplets. MTDD
== END ==
LOC: HO.CARD 07:00
PROVIDERS: Visit Provider Internal Medicine Cardiovascular Disease
DX: I48.20 Chronic atrial fibrillation, unspecified (principal)
CPT/HCPCS: 93242

== ENCOUNTER 2022-02-02 09:23 | Outpatient (REF) | payer MEDICARE, SELFPAY ==
--- NOTE | 2022-02-02 18:00 | MHC.AU.ANR ---
Adult Audiological Evaluation Date of Visit: 02/02/22 Reason for Appointment: Audiological evaluation due to concern for decreased hearing. Mr. Harris has been seeing a speech pathologist at our clinic due to a stroke he suffered on November 15, 2021, and an audiological evaluation was recommended. He notes that his hearing has gradually been declining since the s and he feels his right ear may be worse. He reports a hearing test many years ago at our clinic, though records could not be located today. Mr. 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 He notes bilateral tinnitus that he feels is becoming more constant lately. Does patient feel they have a hearing loss?: Yes If Yes, Which Ear?: Both Ears When Was Hearing Difficulty First Noticed?: 1990s Has hearing been tested previously?: Yes Previous Hearing Test Results: Records not available for review today. Hearing Handicap Inventory: HHIE SCORE: 24 Based on HHIE score, patient has: Mild to moderate perceived hearing handicap Ear History: History of Ear Wax Buildup: Both Ears Bothersome Tinnitus/Ringing/Noises in Ears: Both Ears Medical History: Medical History: Heart Problems, High Blood Pressure, Stroke Medical History (Other): Stroke on 11/15/21. Left hand surgery. Chronic atrial fibrillation, CKD (chronic kidney disease), Esophagitis, Gout, Hypothyroidism, Orthostatic hypotension, RBBB Allergies: lisinopril, statins, prednisone, mold, dustmites Medication List: Eliquis, levothyroxine, allopurinol, metoprolol, omeprazole, Flonase, Psyllium husk, amlodipine Otoscopy: Right Ear: Unremarkable Left Ear: Unremarkable Tympanometry: Tympanometry performed due to: To assess integrity of the middle ear system Right Ear: Normal Middle Ear System (Type A) Left Ear: Normal Middle Ear System (Type A) Hearing Evaluation: Transducer(s) Used: Insert Earphones, Bone Conduction Method: Conventional Audiometry Stimuli Used: Pure Tones Right Ear: Description of Hearing: Mild sloping to severe sensorineural hearing loss from 250-8000 Hz. Left Ear: Description of Hearing: Normal hearing from 250-1000 Hz, sloping to a mild to moderately-severe sensorineural hearing loss from 0730-2354 Hz. Speech Recognition Threshold (SRT): Method Used: Monitored Live Voice Stimuli Used: Spondee Words Right Ear: 30 dBHL Left Ear: 25 dBHL Word Discrimination: Method: Recorded Lists Word Lists Used: NU-6 Right Ear: 84% at 70 dBHL Left Ear: 80% at 70 dBHL Interpretation of Results: Today's evaluation indicates a bilateral sensorineural hearing loss of a mild to moderately-severe/severe degree. This hearing loss is expected to impact communication, especially when in adverse listening environments such as background noise or listening from a distance. Mr. Harris would likely benefit from binaural amplification. Recommendations: Audiological re-evaluation in one year. Trial with amplification is recommended. Discussed hearing aids with Mr. Harris and his today. Set him up with a pair of demo hearing aids to use for a week. He will return on 02/10/22 for further hearing aid discussion. Diagnosis: Primary Diagnosis: H90.3 Bilateral Sensorineural Hearing Loss Secondary Diagnosis: H93.13 Tinnitus, Bilateral Services Performed: Services Performed: Comprehensive Audiological Evaluation (CPT 57817) Tympanometry (CPT 84328) Signature: Provider: Audi Marquez, CCC-A
--- NOTE | 2022-02-02 18:13 | MHC.AU.HFU ---
Hearing Instrument Follow-Up- Binaural Date of Visit: 02/02/22 Follow-Up Summary: Set Mr. Harris up with demo hearing aids today to use for the next week. Programmed a pair of [employer] Healthak TouchBistroeo P-R Trial aids ([id number], [id number]) with size 0 M receivers and open domes. Ran a feedback test. Briefly went over hearing aid and guardian ad litem use. Recommendations: Recommendations: He will return in one week to continue discussing hearing aids and to decide he if would like to proceed with purchase of his own devices. Diagnosis Code(s): Primary Diagnosis: H90.3 Bilateral Sensorineural Hearing Loss Secondary Diagnosis: H93.13 Tinnitus, Bilateral Signature: Provider: Audi Marquez, CCC-A
== END 2022-02-02 09:24 | disposition home or self-care (01) ==
LOC: HO.SH 09:23
PROVIDERS: Visit Provider Internal Medicine
DX: H90.3 Sensorineural hearing loss, bilateral (principal); H93.13 Tinnitus, bilateral
CPT/HCPCS: 92557; 92567

== ENCOUNTER 2022-02-05 09:00 | Outpatient (RCR) | payer MEDICARE, SELFPAY ==
[2021-12-21 10:08] VITALS: BP 151/96; PULSE 98
--- NOTE | 2021-12-21 14:00 | MHC.PT.EP ---
[facility] [place] Office [place] [facility] [place] Office [address] Jacqui Mixon [address] [phone] F: [phone] F: [phone] F: [phone] F: [phone] Physical Therapy Plan of Care Date of Evaluation: Date of Surgery: Diagnosis: S/P CVA Assessment: ALTHEA IS A PLEASANT 71 YO MALE S/P CVA. UPON EXAM HE DEMONSTRATES MILD STRENGTH AND ROM DEFICITS, BALANCE DEFICITS, ALTERED GAIT PATTERNING AND INCREASED PAIN IN LEFT SHOULDER. FUNCTIONAL LIMITATIONS INCLUDE DECREASED ABILITY TO PERFORM WALKING, LIFTING, SQUATTING, PUSHING, PULLING AND STAIR CLIMBING. Pt IS A GOOD CANDIDATE FOR SKILLED PT DUE TO AGE, POTENTIAL REMEDIATION OF IMPAIRMENTS, TYPICAL DISEASE/CONDITION PROGRESSION AND PROGNOSIS, COMORBIDITIES, AND MOTIVATION. Pt WOULD BENEFIT FROM TAILORED PROGRAM OF THERAPEUTIC ACTIVITIES, FUNCTIONAL TRAINING, GAIT TRAINING, POSTURAL EDUCATION, NEUROMUSCULAR RE-EDUCATION, AND MODALITIES NEEDED. Frequency and Duration: The patient will be seen MANUAL TREATMENT 1 X WEEK FOR 6 WEEKS Short Term Goals: INITITATE HEP AND PROMOTE SELF MANAGEMENT OF SYMPTOMS Polishing Machine Operator Helper Goals: IN 6 WEEKS TO AMBULATE AD HEATHER FOR RECREATION IN 6 WEEKS TO TOLERATE MODERATE PRETURBATION IN STANDING FEET TOGETHER TO CLIMB 1 FLIGHT OF STAIRS WITH 1 RAIL IN 6 WEEKS Treatment Plan: Modalities to reduce pain, spasms and effusion. Manual therapy to restore motion and function. Therapeutic exercise to improve strength and flexibility. Neuromuscular re-education for posture and balance. Therapeutic activities to return to functional activities of daily living. Electronically signed by: JOSH MCCRACKEN PT, DPT Please sign and return to therapist. Thank you for your referral.
== END 2022-03-25 11:37 | disposition home or self-care (01) ==
LOC: HO.PT 09:00
PROVIDERS: PCP Internal Medicine; Visit Provider Internal Medicine
DX: I63.9 Cerebral infarction, unspecified (principal)
CPT/HCPCS: 97110; 97112; 97162

== ENCOUNTER 2022-02-10 14:23 | Outpatient (REF) | payer SELFPAY ==
--- NOTE | 2022-02-10 18:37 | MHC.AU.HAS ---
Hearing Aid Evaluation Date of Visit: 02/10/22 Historical Information: Description of Hearing: Mild to moderately-severe/severe sensorineural hearing loss bilaterally Current personal amplification information, if applicable: None Summary: Mr. Harris was seen today for a hearing aid consultation. He has been using a pair of demo hearing aids for a week and notes that he has been finding significant benefit from them. He would like to proceed with purchasing his own set. Discussed technology levels and pricing. He would like to go with rechargeable, mid-range technology, CLIFFORD style hearing aids. Hearing Aid Prescription: Based on the individual?s shared listening needs, communication environments, dexterity, desire for connectivity, and personal preferences, the following prescription for amplification has been made: Right ear: Pedorthist: Phonak Model: Audeo P70-R Battery Size: Rechargeable Color: P5 Vp Marketing: Size 0 M Type of Dome: Open Left ear: Left ear prescription to be same as Right Hearing Aid above: Pedorthist: Phonak Model: Audeo P70-R Battery Size: Rechargeable Color: P5 Vp Marketing: Size 0 M Type of Dome: Open Accessories/Assistive Technology Recommended: Promo: [id number], Charge N Care and active vent receivers (will keep receivers for stock, not appropriate for patient) Plan of Care: Medical Clearance to be requested from PCP/ENT. Hearing aids ordered today. Hearing aid fitting to be scheduled when materials arrive. Primary Diagnosis: H90.3 Bilateral Sensorineural Hearing Loss, Secondary Diagnosis: H93.13 Tinnitus, Bilateral Signature: Provider: Audi Marquez, CCC-A
--- NOTE | 2022-02-10 18:38 | MHC.AU.MED ---
Medical Clearance for Hearing Instrumentation Date: 02/10/22 Patient Name: Gabriele Harris Date of : 1950 Referring Provider: Parth Rajan MD We have seen your patient on 02/10/22 and have determined that they are a candidate for amplification (See accompanying report). Specifically, they would benefit from: Hearing aid use in both ears There is a statute that addresses Medical Evaluation Requirements prior to fitting a patient with a hearing aid. According to [place] statute 265 CMR:6.03(1), (a) General. Except as provided in 265 CMR 6.03(1)(b), a hearing dog trainer shall not sell a hearing aid unless the prospective user has presented to the hearing dog trainer a written statement signed by a licensed physician that states that the patient's hearing loss has been medically evaluated and the patient may be considered a candidate for a hearing aid. The medical evaluation must have taken place within the preceding six months. Please note: Due to the [place] Statute referenced above, we cannot accept a signature other than that of a licensed physician. MIXING TANK OPERATOR and PA signatures cannot be accepted. I am in agreement with the above recommendation. There is no medical contraindication for hearing instrumentation. Physician Signature Date Physician Name (Printed)
== END 2022-02-10 14:24 | disposition home or self-care (01) ==
LOC: HO.HAP 14:23
PROVIDERS: Visit Provider Internal Medicine
DX: Z46.1 Encounter for fitting and adjustment of hearing aid (principal); H90.3 Sensorineural hearing loss, bilateral
CPT/HCPCS: 92590; 92591

== ENCOUNTER → 2022-02-18 12:42 | Outpatient (BNVA) | payer MEDICARE, SELFPAY | PROVIDERS: PCP Internal Medicine; Referring Provider Internal Medicine; Visit Provider Internal Medicine Cardiovascular Disease | DX: I42.9 Cardiomyopathy, unspecified (principal); I48.20 Chronic atrial fibrillation, unspecified; R09.89 Other specified symptoms and signs involving the circulatory and respiratory systems; Z79.01 Long term (current) use of anticoagulants | CPT/HCPCS: 99212 ==

== ENCOUNTER 2022-03-05 12:35 | Outpatient (REF) | payer SELFPAY ==
--- NOTE | 2022-03-12 08:16 | MHC.AU.HFA ---
Hearing Instrument Fitting- Adult- Binaural Date of Visit: 03/05/22 Hearing Instruments Dispensed: Right Ear: Sales Promoter: Phonak Model: Audeo P70-R Serial Number: [id number] Repair Warranty: 05/11/2025 Loss and Damage Warranty: 05/11/2025 Battery Size: Rechargeable Color: P5 Accounts Receivable Clerk: Size 0 M Type of Dome: Medium Open Type of Wax Guard: CeruShield Left Ear: Sales Promoter: Phonak Model: Audeo P70-R Serial Number: [id number] Repair Warranty: 05/11/2025 Loss and Damage Warranty: 05/11/2025 Battery Size: Rechargeable Color: P5 Accounts Receivable Clerk: Size 0 M Type of Dome: Medium Open Type of Wax Guard: CeruShield Summary of Fitting: Patient returned the loaner instruments in good condition. On his new instruments, feedback fund accounting manager was run. Verifit performed and levels adjusted to better reach targets. Patient was pleased with the sound of the instruments. Hearing aid care and maintenance were discussed and practiced. Recommendations: Patient will call for follow-up if needed. Diagnosis Code(s): Primary Diagnosis: H90.3 Bilateral Sensorineural Hearing Loss Secondary Diagnosis: H93.13 Tinnitus, Bilateral Signature: Provider: Audi Torres, DREW-A
== END 2022-03-05 12:36 | disposition home or self-care (01) ==
LOC: HO.HAP 12:35
PROVIDERS: Visit Provider Internal Medicine
DX: Z46.1 Encounter for fitting and adjustment of hearing aid (principal); H90.3 Sensorineural hearing loss, bilateral; H93.13 Tinnitus, bilateral
CPT/HCPCS: V5261; V5299

== ENCOUNTER 2022-03-29 15:04 | Outpatient (REF) | payer SELFPAY | END 2022-03-29 15:05 | disposition home or self-care (01) | LOC: HO.HAP 15:04 | PROVIDERS: Visit Provider Internal Medicine | DX: Z13.89 Encounter for screening for other disorder (principal) ==

== ENCOUNTER 2022-06-02 08:30 | Outpatient (RCR) | payer MEDICARE, SELFPAY ==
--- NOTE | 2022-04-07 16:10 | MHC.OT.EP ---
[address] [phone] Occupational Therapy Plan of Care Date of Evaluation: 04/07/22 Diagnosis: s/p cerebral infarct Assessment: Pt. is a 71 y/o male s/p CVA in October 2021 resulting in mild L hemiparesis and shoulder pain that is limiting function. Pt. presents with decreased L shoulder ROM, decreased strength, decreased coordination, and difficulty performing ADL's/IADL's. Increased tightness in L scap area with some shoulder hiking and decreased motor planning. Pt. would benefit from skilled OT services to address noted barriers and assist in return to PLOF. Frequency and Duration: The patient will be seen 2x/wk for 6 weeks Short Term Goals: Decrease L shoulder pain to <5/10 Improve L shoulder flex/Abd by 10 degrees each Improve L cleaning associate strength by 5# Improve L hand coordination to be able to complete buttons/zippers Strip Catcher Goals: Pain free with BADL's/IADL's Improve L shoulder ROM to WNL s Improve L hand coordination AEB 6 sec improvement on FDT Improve L cleaning associate strength by 10# Quick DASH <25% Treatment Plan: Therapeutic Exercise Therapeutic Activity Home Exercise Program Neuro Re-ed Patient Education ADL Training Fluidotherapy MHP Cold Packs Soft Tissue Mobilization Kinesiotaping Electronically Signed By: Mary Rodríguez MS OTR/L Please Sign and return to therapist. Thank you once again for your referral.
--- NOTE | 2022-06-02 09:32 | MHC.OT.DC ---
[address] [phone] F: [phone] Occupational Therapy Discharge Note Provider: Javon Lebron Diagnosis: s/p cerebral infarct Date of Surgery: Date of Evaluation: 04/07/22 Date of Discharge: 06/02/22 Treatments to Date: 11 Cancellations to Date: No Shows to Date: Discharge Status: Achieved Goals Improved Function Independent with HEP Discharge Summary: Gabriele has participated in OT for 6 weeks and has made excellent progress. Functional gains as follows: Pts left shoulder is pain free with functional activity and is able to diane shirt/jacket with increased ease. L shoulder flexion improved to 135 degrees and gross grasp improved to 65# (from 40#). Pt. reports using L hand more functionally with ADL's/IADLs and demonstrated a 14 second improvement on the Functional Dexterity Test. At this time, Gabriele has met all goals and is IND with HEP. Thank you for this referral. Electronically Signed By: Mary Rodríguez MS OTR/L Reviewed/agree with student documentation: N/A Therapist: Please Sign and return to therapist, thank you for your referral.
== END 2022-06-02 09:32 | disposition home or self-care (01) ==
LOC: HO.OT 08:30
PROVIDERS: PCP Internal Medicine; Visit Provider Internal Medicine
DX: I63.9 Cerebral infarction, unspecified (principal)
CPT/HCPCS: 97110; 97165

== ENCOUNTER 2022-06-11 08:17 | Outpatient (REF) | payer MEDICARE, SELFPAY ==
[2022-06-11 09:31] LABS: Anion Gap 15 (12-20); Blood Urea Nitrogen 18 mg/dL (9-16); Calcium 9.3 mg/dL (8.4-10.2); Carbon Dioxide 26 mmol/L (22-29); Chloride 100 mmol/L (96-108); Estimated Glomerular Filt Rate 53; Potassium 4.1 mmol/L (3.3-5.1); Sodium 137 mmol/L (135-145); Uric Acid 5.4 mg/dL (3.4-7.0)
== END 2022-06-11 08:18 | disposition home or self-care (01) ==
LOC: HO.LAB 08:17
PROVIDERS: Absent Provider Internal Medicine Nephrology; PCP Internal Medicine; Visit Provider Internal Medicine
DX: I12.9 Hypertensive chronic kidney disease with stage 1 through stage 4 chronic kidney disease, or unspecified chronic kidney disease (principal); N18.31 Chronic kidney disease, stage 3a
CPT/HCPCS: 36415; 80051; 82310; 82565; 84520; 84550

== ENCOUNTER 2022-06-23 13:03 | Outpatient (REF) | payer MEDICARE, SELFPAY ==
--- NOTE | ~2022-06-23 | CT_ITS ---
EXAMINATION: CT CHEST WITH CONTRAST CLINICAL INFORMATION: Localized enlarged lymph nodes. COMPARISON: None. TECHNIQUE: Multidetector volumetric CT imaging of the chest was obtained after the administration of 50 mL of Omnipaque 350 intravenous contrast without immediate adverse reactions. Axial MIP volume rendering provided. Sagittal and coronal reformatted images were obtained. This CT examination was performed using dose optimization techniques as appropriate, variously including the following: *Automated exposure control *Adjustment of mA and/or kV according to patient size (this includes techniques or standardized protocols for targeted exams where dose is matched to indication/reason for exam; i.e. extremities or head) *Use of iterative reconstruction technique DLP: 145 mGy-cm. FINDINGS: CARPENTER'S HELPER: Unremarkable. LUNGS: The lungs are well expanded without any acute pneumonic process. There is a 2 mm calcified nodule left lower lobe axial image 154/9, a 1 mm calcified nodule right middle lobe axial image 128/9, 2 mm noncalcified peripheral-based nodules axial image 111/9, focal atelectatic changes in the lingula and left upper lobe. MEDIASTINUM: The thyroid lobes are symmetrical and normal. The central trachea and bronchi are widely patent. Heart size and the great vessels are normal caliber. There are small shotty lymph nodes in the pretracheal space measuring 9 mm and aortic window measuring 1.4 cm in maximum dimension. There is no pericardial effusion. CORONARY ARTERY CALCIFICATION: Trace coronary artery calcifications are present. PLEURA: There is no pleural effusion. No pleural mass or thickening. AXILLA: No lymphadenopathy. UPPER ABDOMEN: Visualized spleen, pancreas and bilateral adrenal glands are unremarkable. Mild heterogeneity of liver without any focal lesions. OSSEOUS STRUCTURES: No aggressive lytic or sclerotic process seen. CT/CT chest w IV con IMPRESSION: 1. Small calcified and noncalcified pulmonary nodules. 2. Prominent mediastinal lymph nodes with the largest measuring 1.4 cm in the aortic window. 3. Mild heterogeneity of liver without any focal lesions. 4. Mild coronary artery calcifications are present. Fleischner guidelines were followed.
[2022-06-23] MEDS: iohexoL 350 MG/ML 100 ML INFUS..BTL 65 ML IV (13:53)
== END 2022-06-23 13:04 | disposition home or self-care (01) ==
LOC: HO.CT 13:03
PROVIDERS: PCP Internal Medicine; Visit Provider Internal Medicine
DX: R59.0 Localized enlarged lymph nodes (principal)
CPT/HCPCS: 71260; Q9967

== ENCOUNTER → 2022-07-01 08:59 | Outpatient (BNVA) | payer MEDICARE, SELFPAY | PROVIDERS: PCP Internal Medicine; Referring Provider Internal Medicine; Visit Provider Internal Medicine Cardiovascular Disease | DX: I48.20 Chronic atrial fibrillation, unspecified (principal); I95.1 Orthostatic hypotension; I42.9 Cardiomyopathy, unspecified | CPT/HCPCS: 99212 ==

== ENCOUNTER 2022-09-22 13:22 | Outpatient (REF) | payer SELFPAY | END 2022-09-22 13:23 | disposition home or self-care (01) | LOC: HO.SH 13:22 | PROVIDERS: Visit Provider Internal Medicine | DX: H90.3 Sensorineural hearing loss, bilateral (principal) | CPT/HCPCS: V5267 ==

== ENCOUNTER 2022-11-12 15:00 | Outpatient (RCR) | payer MEDICARE, SELFPAY ==
--- NOTE | 2022-01-08 16:04 | MHC.SP.ADU ---
Referring provider: Javon Lebron MD Reason for Referral: Dysarthria s/p stroke Type of Treatment: 96241 Evaluation Speech Sound Production WITH Language Date of Plan of Treatment: 12/24/21 Onset of Symptoms/Illness: 11/15/21 Date Treatment Started: 11/16/21 Medical Diagnosis: Stroke, atrial fibrillation with rapid ventricular response, chronic atrial fibrillation, chronic atrial flutter, CKD, hypertension, orthostatic hypotension, RBBB, gout, esophagitis, hypothyroidism Primary Speech Language Diagnosis: R47.1 Dysarthria Secondary Speech Language Diagnosis: R47.01 Aphasia History Patient is a 71 year old male, referred for a speech evaluation by Javon Lebron MD of [facility] in [place], [place]. Patient?s primary care physician is Dr. Parth Rajan. Patient was accompanied to this evaluation by his , Gerda Harris, who is a nurse and assisted in providing background information included in this report. 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 Patient was recently hospitalized at [facility] 11/15/21-11/19/21 for left sided hemiparesis and right side CVA. Patient was seen by the speech pathologist during his hospitalization, and it was recommended that he continue speech therapy after discharge. Patient was seen by [facility] for speech therapy (discharged 12/03), physical therapy (discharged 12/15), and occupational therapy (discharged 12/09). Reported areas of difficulties include: swallowing, expressing thoughts, memory, problem solving, focus/attention, reading/writing, finding words, maintaining topic of conversation, following directions, oral motor weakness, voice difficulties, understanding what others are saying. Additionally, patient and his report he has significant difficulty hearing speech. Patient did experience difficulty hearing this clinician during our exam. Patient does not have hearing aids 11/16 Brain MRI: ?Focal acute infarct involving the dorsal right basal ganglia and right kumari radiata without hemorrhagic conversion. Mild chronic white matter microangiopathy. 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 Medical History: Other: Stroke, atrial fibrillation with rapid ventricular response, chronic atrial fibrillation, chronic atrial flutter, CKD, hypertension, orthostatic hypotension, RBBB, gout, esophagitis, hypothyroidism Patient Orientation: Alert & Oriented x 4 Social History: Employment Status: Retired Current Living Situation: Patient lives in a private home with his . Comment: Past Speech Language Therapy: Patient discharged from [facility] speech therapy on 12/03/21. Other Therapies Seen in Current Calendar Year: Occupational Therapy Physical Therapy Speech Therapy Reported Speech, Language, Cognition difficulties: Understanding Attention Reading Memory Cognition Speaking Problem Solving Writing Swallowing Assessment Speech Production: Dysarthric Garbled Slow Slurred Clinical Impression: Impaired Observations: When describing the Kelley Theft image, patient used complete sentences with appropriate syntax, and demonstrated minimal word finding difficulty. Patient?s word finding difficulties are more apparent in structured tasks than in conversational speech. Patient?s speech was mildly slow in rate and mildly slurred and garbled. Patient?s SMR?s and AMR?s were slow, mildly distorted. Patient and his report that he is more difficult to understand when he is tired. Tests of Speech & Lang Adults: BDAE BNT Clinical Impression: Impaired Observations: Patient was administered the Auditory Comprehension and Oral Expression subtests of the Leonard Diagnostic Aphasia Examination (BDAE). The BDAE is an assessment used to evaluate for receptive and expressive aphasia in individuals 16 years and older. His performance is summarized below: RECEPTIVE LANGUAGE: -Patient followed single step commands and multi-step, complex commands presented to him verbally without difficulty. -During a basic word discrimination task, patient identified the line image which best depicted the word spoken by the clinician from a choice of 4 in 16 out of 16 trials. -Patient correctly answered yes/no questions about ideational material in 2 out of 2 trials and about short stories read aloud for him in 3/4 trials. EXPRESSIVE LANGUAGE: -Patient generated the days of the week and counted to 21, demonstrating intact automatic speech: 4/4 score -Patient repeated single words correctly in 5 out of 5 trials and complete sentences in 2 out of 2 trials, indicating that his repetition of words and sentences is intact. -Patient responded appropriately to responsive naming questions in 5 out of 5 trials. Patient immediately named each item, receiving a 10/10 score. -Patient correctly named ?special categories,? which included letters, numbers, and colors in 12 out of 12 trials. *Patient was administered the Leonard Naming Test (BNT) in its entirety. He was presented with a line image, and was instructed to name that image with one word. Patient correctly named 48 out of 60 images. Patient?s mild aphasia was more apparent during confrontational naming tasks and when presented with images which depicted items or ideas which are less salient and less frequently seen. Although patient exhibited some difficulty naming items during confrontational naming tasks, he demonstrated improved fluency in connected speech. When describing the Kelley Theporsche image, patient used complete sentences with appropriate syntax, and demonstrated minimal word finding difficulty. Patient?s word finding difficulties are more apparent in structured tasks than in conversational speech. Tests of Cognition: CLQT Clinical Impression: Impaired Observations: Patient was administered the Cognitive Linguistic Quick Test (CLQT). The CLQT is a criterion-referenced assessment used to gain information about an individual?s relative strengths and weaknesses and to identify deficits in cognitive-linguistic skills in individuals aged 18-89 years old. The CLQT generates severity ratings in the following five cognitive domains: Attention, Memory, Language, Executive Functions, and Visuospatial Skills. Patient?s performance on the CLQT is displayed below: Task: Criterion Cut Score, Patient?s Score, Interpretation Personal Facts: 8, 8, Within Functional Limits Symbol Cancellation: 10, 12, Within Functional Limits Confrontational Namin, 10, Within Functional Limits Clock Drawin, 12, Within Functional Limits Story Retellin, 3, Below Average Symbol Trails: 6, 2, Below Average Generative Namin, 3, Below Average Design Memory: 4, 3, Below Average Mazes: 4, 8, Within Functional Limits Design Generation: 5, 1, Below Average Task scores were summed together based on cognitive domain. Cognitive Domain scores are as follows: Cognitive Domain: Domain Score, Severity Range, Severity Rating Attention: 159, Mild, 3 Memory: 107, Moderate, 2 Executive Functions: 14, Mild, 3 Language: 24, Moderate, 2 Visuospatial Skills: 65, Within Functional Limits, 4 Patient?s Composite Severity Rating of 2.8 is interpreted as a MILD COGNITIVE LINGUISTIC IMPAIRMENT according to his performance on this assessment measure. Attention skills include the ability to maintain attention over time, selectively disengage from one task to engage in a new one, and the ability to coordinate the demands of multiple tasks (Dani, 2001). Patient was able to attend to simple, short tasks but exhibited some difficulty coordinating the demands of multiple tasks at once. Patient asked for models and repetitions of task instructions as needed throughout the assessment. Patient demonstrated some impairments in short term memory according to his performance on the CLQT. Memory is a complex process that includes the ability to attend to, process, retain, store, and retrieve information (Dani, 2001). Patient was able to recall some design shapes (immediate recall of new visual information) and accurately retrieve information about personal facts (integrity of previously stored information). He exhibited difficulty immediately recalling details about a story verbally presented by the clinician (immediate recall of new information presented verbally in a paragraph). Patient completed tasks that assessed his ability to plan, sequence, implement, and accomplish goal-directed activities in flexible manner, taking into consideration situational and environmental changes (Dani, 2001). When completing a maze, patient was observed to pause and look ahead before drawing his path to plan his route accordingly. It was noted that during the design generation activity, patient perseverated on his designs, copied example designs generated by the clinician, and eduin designs with 2-3 lines rather than 4. Individuals with typical neurological cognitive-linguistic skills typically generate more designs by creating a pattern in alternating positions of the designs. This reflects reduced flexibility in the generation of new designs or ideas. Patient demonstrated a moderate impairment in his language skills based on his performance on the CLQT. On this assessment measure, patient correctly named 10 out of 10 images, which had depicted frequent items. However, notably, he exhibited difficulty with generative naming tasks, especially with the added pressure of a time constraint. Visuospatial skills include the ability to scan, discriminate, analyze, and interpret visual information (Dani, 2001). Patient scored within functional limits on tasks targeting visuospatial skills. Impressions and Recommendations Summary: Impact on Daily Function/Activity Limitations: Daily Activities: Mild Interpersonal Interactions: Mild Education: Employment: Community: Mild Prognosis for Improvement: Good Comment: s/p stroke 11/15/21 Recommendation for Speech Therapy: Outpatient Speech Therapy Modified Barium Swallow Study - Outpatient Frequency/Duration: 1x weekly x 12 weeks Time to Reassess: 3 months Manager Report Goals: 1.) Patient will utilize a variety of word-finding strategies at the conversational level with minimal assistance in >80% opportunities presented to him. 2.) Patient will use at least two compensatory strategies to improve his overall speech intelligibility at the conversational level in 80% of opportunities independently. 3.) Patient will provide at least two solutions to complex problems in 80% of trials when provided with moderate verbal cues. 4.) Patient will utilize compensatory strategies to assist short-term memory in 80% of opportunities independently. Short Term Goals: Goal # : 1.1.Patient will provide at least 6 members per spoken category in 4 out of 5 trials with minimal assistance. 1.2.Patient will identify a target word when provided with 3-4 related words or phrases in a word deduction task with 80% accuracy and minimal verbal assistance. 1.3.Patient will utilize Semantic Feature cues (i.e. category, use, function, physical components, association, location) to describe items to a listener successfully in 80% of opportunities with visual support (chart). Goal Status: New Goal Goal# : 2.1. Patient will use at least two compensatory strategies (over articulation/slow rate/writing prado word/elongation of the vowel/increased loudness/phrasing) to improve speech intelligibility within sentences in conversation in 80% of opportunities when provided with minimal verbal cues. 2.2. Patient will use pacing cues to accurately produce 4-5 syllable words with 80% accuracy when provided with minimal verbal cues. Goal Status: New Goal Goal # : 3.1.Patient will demonstrate mental flexibility by identifying 2 possible solutions to safety situations in 80% of trials with minimal assistance. Goal Status: New Goal Goal # : 4.1.Patient will listen to auditory information (i.e. voicemail, ads, instructions for medication dosage, invitations) and make note of pertinent information in 80% of opportunities with minimal verbal cues. 4.2.Patient will use compensatory strategies (visualization, verbal rehearsal, writing notes, etc) to recall 4 item grocery lists with 80% accuracy and 1-2 repetitions. 4.3.Patient will recite 4 word lists presented to him verbally in reverse order with 80% accuracy and 1-2 repetitions. 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 1. Recommend patient to participate in 12 weekly individualized speech therapy visits with goals targeting dysarthria, word finding, and cognition. 2. Recommend patient to have modified barium swallow study (MBSS) given the reported difficulties swallowing. 3. Recommend patient to have comprehensive audiological evaluation due to the patient?s difficulty hearing speech. Recommended Referrals to be Discussed with Primary Care Provider: Audiological Evaluation Neurology Patient Education: Completed: Yes Patient/Caregiver Education: Described Results of Evaluation Patient expressed understanding of evaluation Family/Caregivers expressed understanding of results Comments/Barriers to Learning: Computer Equipment Installer Clinican/Clinical Fellow: No Supervisory Statement: N/A Speech Language Pathologist: Leslie Meyers M.A., CCC-SHOW JUMPING INSTRUCTOR
--- NOTE | 2022-07-29 12:16 | MHC.SL.SOA ---
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 Patient was hospitalized at [facility] 11/15/21-11/19/21 for left sided hemiparesis and right side CVA. Patient was seen by the speech pathologist during his hospitalization, and it was recommended that he continue speech therapy after discharge. Patient was seen by [facility] for speech therapy (discharged 12/03), physical therapy (discharged 12/15), and occupational therapy (discharged 12/09). Pt was referred for a speech evaluation in December by Javon Lebron MD of [facility] to continue speech therapy on an outpatient basis (Patient?s primary care physician is Dr. Parth Rajan). Pt has been attending weekly speech therapy sessions with excellent attendance and motivation since December 2021 for the treatment of mild anomic aphasia, mild dysarthria, and cognitive linguistic impairment. Pt?s sessions target dysarthria and cognitive linguistic skills, including attention, short-term memory, executive functions, and word finding. Patient is accompanied to his sessions by his , Gerda Harris. Pt has met many of his current short-term objectives, thus he completed testing on 07/08/22-07/14/22 to monitor progress and inform goals. 11/16 Brain MRI: ?Focal acute infarct involving the dorsal right basal ganglia and right kumari radiata without hemorrhagic conversion. Mild chronic white matter microangiopathy. 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 Objective: 1.1.Patient will provide at least 6 members per spoken category in 4 out of 5 trials with minimal assistance. 1.1. OBJECTIVE MET: The patient identified 6+ items per category in >90% of trials when provided with minimal assistance. 1.2.Patient will identify a target word when provided with 3-4 related words or phrases in a word deduction task with 80% accuracy and minimal verbal assistance. 1.2 OBJECTIVE MET: When provided with 3-4 clues, the patient correctly guessed the word or category in 100% of trials. Patient accurately identified a target word that began with a specific letter for eight separate categories in 88% of trials with minimal assistance. 1.3.Patient will utilize Semantic Feature cues (i.e. category, use, function, physical components, association, location) to describe items to a listener successfully in 80% of opportunities with visual support (chart). 1.3. OBJECTIVE CONTINUED: Patient required moderate cueing and prompting to present cues (i.e. semantic) to successfully describe items or categories to a listener in 100% of trials. 2.1. Patient will use at least two compensatory strategies (over articulation/slow rate/writing prado word/elongation of the vowel/increased loudness/phrasing) to improve speech intelligibility within sentences in conversation in 80% of opportunities when provided with minimal verbal cues. 2.1 OBJECTIVE TO BE CONTINUED. 2.2. Patient will use pacing cues to accurately produce 4-5 syllable words with 80% accuracy when provided with minimal verbal cues. 2.2. OBJECTIVE MET: Patient used pacing cues to accurately produce four-syllable words and five-syllable words in 90% of trials with minimal assistance. 3.1.Patient will demonstrate mental flexibility by identifying 2 possible solutions to safety situations in 80% of trials with minimal assistance. 3.1 OBJECTIVE MET: The patient identified two possible solutions for safety and household situations in 100% of trials when provided with minimal assistance. 4.1.Patient will listen to auditory information (i.e. voicemail, ads, instructions for medication dosage, invitations) and make note of pertinent information in 80% of opportunities with minimal verbal cues. 4.1. OBJECTIVE MET: Pt was read instructions for medication, an invitation for a [employer] republican, a baby shower, and a wedding invitation. He utilized strategies to improve short-term recall: taking written notes of pertinent information and verbal rehearsal (repeating prado details that were read to him) in 80% of opportunities with minimal verbal cues. 4.2.Patient will use compensatory strategies (visualization, verbal rehearsal, writing notes, etc) to recall 4 item grocery lists with 80% accuracy and 1-2 repetitions. 4.2 OBJECTIVE MET: Patient recalled 4 item written grocery lists with minimal support following a short delay (<30 seconds). 4.3.Patient will recite 4 word lists presented to him verbally in reverse order with 80% accuracy and 1-2 repetitions. 4.3. OBJECTIVE CONTINUED: The patient recited 4-word lists in reverse order with 63% accuracy and maximal assistance (i.e. 2+ repetitions, models and cues for memory strategies). Assessment:Patient?s cognitive linguistic skills were evaluated using the RBANS: The Repeatable Battery for the Assessment of Neuropsychological Status (RBANS-Updated Form A). The RBANS assesses aspects of cognitive memory, language, and attention skills. The RBANS is considered a screening battery for cognitive function used with adolescents and adults, ages 12 to 89 years. Composite domains assessed in this evaluation are: Immediate Memory, Visuospatial/Constructional, Language, Attention, and Delayed Memory. Assessed domains and their scores are summarized below: Immediate Memory: This subtest assesses the patient?s ability to remember a small amount of information immediately after it is presented. Pt was presented with a list of 10 spoken words. Pt correctly recalled 1 item from the list of 10 in all 4 trials. After listening to a spoken paragraph, pt recalled 2 details from the story. Initially patient stated, ?I don?t know.? He was encouraged to state whatever it was that he did remember from the story. Pt explained that this task was difficult for him. Index score: 44 Percentile: <0.1 Interpretation: Extremely Low Visuospatial/Constructional: This subtest assesses the patient?s visuospatial skills and perception of spatial relationships. Patient was instructed to draw an accurate copy of a figure presented to him. Pt copied this image and included most details. Pt?s drawing had some errors in placement and was missing some components. Pt was also instructed to identify lines that matched based on orientation and placement. Pt expressed this was ?hard to do without a ruler.? He was encouraged to try his best. Visuo-spatial skills are a relative strength for the patient. Index score: 87 Percentile: 19 Interpretation: Low Average Language: This subtest assesses the patient?s word retrieval skills. Pt correctly named line images in 8 out of 10 trials. Pt named trumpet as ?horn? and clothespin as ?clothesline clip.? Pt was also instructed to name as many fruits and vegetables as he can in 60 seconds (semantic fluency). Pt named 12 items. Index score: 71 Percentile: 3 Interpretation: Borderline Attention: This subtest assesses the patient?s capacity to remember and manipulate both visually and orally presented information in short-term memory storage. Pt was first instructed to repeat back number series that were between 2-9 digits long. Pt recalled digit series of up to 4 digits. He exhibited difficulty with series of 5 or more digits. Next, pt was instructed to code markings with numbers. Pt made one error doing this and frequently referenced the prado. Index score: 49 Percentile: <0.1 Interpretation: Extremely Low Delayed Memory: This subtest assesses the patient?s retrieval of information from long-term memory. Pt exhibited difficulty recalling information that was presented to him at the beginning of the testing period. Pt stated, ?No, I can?t remember any.? Pt was then asked to recognize items by indicating whether or not a given word was on that list. Pt indicated one word which was not on the list, and then reiterated, ?I can?t remember any.? Pt did not recall details from a story read aloud previously. When asked to redraw the figure drawing which was previously presented to him, pt eduin the figure with mostly correct placement and increased missing components. Index score: 48 Percentile: <0.1 Interpretation: Extremely Low Ifeoma Cardona (1998). Repeatable Battery for the Assessment of Neuropsychological Status [Manual]. [place], [place]: Susy. Pt was also administered the Ab Brief Inventory of Communication and Cognition to further evaluate his cognitive linguistic skills. The Complex Neuropathology Inventory (Ba Brief Inventory of Communication and Cognition) is designed to assess attention, visual-perceptual skills, and memory components of cognition. This inventory provides a protocol for clinicians to assess skills that are important for immediate recognition and recall of auditory and visual stimuli, short-term retention of information, and delayed remote memory functions (Mejia, 1997). Pt completed tasks organized in the following sections: Orientation and Factual Memory, Auditory Attention and Memory, Visual Perception, and Visual Attention and Memory. His performance is displayed below: Task Raw Score Interpretation ORIENTATION AND FACTUAL MEMORY: Orientation to Person, Place, and Time: 10, Average Factual Current and Remote Memory: 10, Average AUDITORY ATTENTION AND MEMORY: Auditory Attention/Vigilance: 10, Average Immediate Auditory Recall of Digits: 7, Below Average (Immediate Auditory Recall of Digits Distractions: Not Administered) Immediate Auditory Recall of Functional Information: 7, Below Average VISUAL PERCEPTION: Color Recognition: 10, Average Picture Matchin, Average Word Matchin, Average VISUAL ATTENTION AND MEMORY: Functional Short-Term Recognition: 10, Average Short-term Recognition of Pictures: 0, Below Average Short-term Recognition of Words: 6, Average Divided Visual Attention: 10, Average Delayed Recognition of Pictures: 7, Below Average Delayed Recognition of Words: 7, Average Pt correctly answered questions related to current memory, demonstrating that he was oriented to person, place, and time. Pt was also able to recall facts related to current and remote events (i.e. naming the current president, naming the president during the Civil War, etc.). Pt?s performance on tasks targeting orientation and factual memory falls within the typical range. Pt was able to attend to and repeat number series of 2-4 digits. However, he exhibited difficulty with the task as the length of the number series increased, as he was not able to accurately and consistently repeat series of 5 digits or more. Pt also struggled with auditory recall of functional information. He made errors repeating house numbers, street names, and full addresses. Pt demonstrated relative strengths in his visual perceptual skills as measured by his performance on color recognition, picture matching, and word matching tasks. Pt successfully followed directions relating to color recognition, matched corresponding pictures, and matched words written in different cases. Pt was instructed to study a list of words (grocery list). This list was removed after 20 seconds and the pt was asked to recall as many items from that list depicted on the next page in drawings. Pt recalled all 5 items immediately. Next, pt was shown a card with 5 pictures and 5 unrelated words. After 20 seconds, pt exhibited difficulty finding the corresponding images, but did find most corresponding words on the separate pages. After a short time delay, pt was able to recognize most of these pictures and words. He also demonstrated strengths in his divided visual attention as he was able to inhibit the color of print to identify words. The Left Hemisphere Inventory (Ba Brief Inventory of Communication and Cognition) is designed to screen the patient?s receptive and expressive oral and written language skills (Mejia, 1997). Pt completed tasks organized in the following sections: Auditory Comprehension, Verbal Expression, Reading, Writing, and Numerical Reasoning. His performance is displayed below: Task Raw Score Interpretation AUDITORY COMPREHENSION: Yes/No Questions: 10, Average Comprehension of Words and Sentences: 10, Average Comprehension of Paragraphs: 6, Below Average VERBAL EXPRESSION: Automatic Speech: 10, Average Verbal Repetition: 8, Average Responsive Naming- Nouns: 10, Average Responsive Naming-Verbs: 10, Average Confrontation Namin, Average READING: Oral Reading of Words and Sentences: 10, Average Reading Comprehension of Words and Sentences: 10, Average Reading Comprehension of Functional Paragraphs: 9, Average WRITING: Writing to Dictation: 7, Average Functional Writin, Average NUMERICAL REASONING: Time: 10, Average Money: 10, Average Calculation: 10, Average Pt demonstrated excellent numerical reasoning skills during time, money, and calculation tasks. He accurately used time concepts, counted coins, and solved simple, functional math problems using a restaurant menu. Pt?s performance on most tasks administered during the Left Hemisphere Inventory fell within the typical range, reflecting pt?s relative strengths in his expressive and receptive language skills. Pt?s difficulty answering questions about information presented in a spoken paragraph was again evident when tasks from this inventory were administered. This is consistent with pt?s performance on Story Memory subtest of the RBANS. The Right Hemisphere Inventory (Ba Brief Inventory of Communication and Cognition) is designed to screen the patient?s attention, visuospatial skills, and understanding of abstract language forms and prosodic inflection (Mejia, 1997). Pt completed tasks organized in the following sections: Scanning and Tracking, Visuo-Spatial Skills, Prosody and Abstract Language. His performance is displayed below: Task Raw Score Interpretation SCANNING AND TRACKING: Functional Scanning and Trackin, Average Scanning and Tracking of Single Words: 10, Average VISUO-SPATIAL SKILLS: Functional Spatial Distribution of Attention: 10, Average Spatial Distribution of Attention: 10, Average Recognition of Familiar Faces: 8, Average Gestalt Perception: 8, Average Visuo-Spatial Construction (Clock): 6, Below Average Visuo-Spatial Organization for Writin, Average PROSODY AND ABSTRACT LANGUAGE: Spontaneous Expression Prosody: 9, Average Receptive Prosody: 6, Below Average Inferences: 8, Average Metaphorical Language: 8, Average Pt demonstrated no difficulties with scanning and tracking or visuo-spatial perception. Pt did exhibit some difficulties constructing a clock. Pt?s clock drawing included all the numbers written clockwise, though there were some errors in spacing. Pt?s clock displayed the incorrect time. Pt interpreted most inferences and metaphors. He exhibited difficulties interpreting variations in tone (angry, disappointed, happy). Tomeka Ba (1997). Ba Brief Inventory of Communication and Cognition. Psychological Nanci. Notes: Pt presents with a cognitive linguistic impairment, with mild to moderate difficulties in attention and memory. Based on pt?s performance on RBANS and Ba Inventories, the following areas of weakness were identified as possible treatment targets: auditory comprehension and story memory at the paragraph level, immediate auditory recall (digits, addresses), delayed memory, and receptive prosody. It is recommended that he continue outpatient treatment once weekly x 12 sessions to work on the following goals: Soft Mud Molder Goals: 1.) Patient will utilize a variety of word-finding strategies at the conversational level with minimal assistance in >80% opportunities presented to him. 2.) Patient will use at least two compensatory strategies to improve his overall speech intelligibility at the conversational level in 80% of opportunities independently. 3.) Patient will utilize compensatory strategies to assist (immediate and delayed) short-term memory in 80% of opportunities independently. 1.1.Patient will utilize Semantic Feature cues (i.e. category, use, function, physical components, association, location) to describe items to a listener successfully in 80% of opportunities with visual support (chart): OBJECTIVE CONTINUED 1.2. Patient will employ circumlocution as a strategy to facilitate word retrieval in conversation in 4 out of 5 opportunities with occasional verbal cues (leading questions, reminders to utilize semantic feature analysis technique): NEW OBJECTIVE 2.1. Patient will use at least two compensatory strategies (over articulation/slow rate/writing prado word/elongation of the vowel/increased loudness/phrasing) to improve speech intelligibility within sentences in conversation in 80% of opportunities when provided with minimal verbal cues: OBJECTIVE CONTINUED 3.1.Patient will demonstrate increased ability to independently copy relevant details (i.e. character names, time lines, main ideas) with 80% accuracy from a highlighted reading source (i.e. news articles, journal, story) after listening to an oral presentation when provided with minimal verbal reminders: NEW OBJECTIVE 3.2. Patient will answer auditory comprehension questions about functional paragraphs/narratives with 80% accuracy when provided with minimal cues across three sessions: NEW OBJECTIVE 3.2. Patient will recall a series of 5-6 digits/words verbally presented to him with 80% accuracy and minimal assistance: NEW OBJECTIVE 3.3..Patient will recite 4 word lists presented to him verbally in reverse order with 80% accuracy and 1-2 repetitions: OBJECTIVE CONTINUED 3.4. Patient will recall addresses (including house number, street, city, state) verbally presented to him by the clinician with >80% accuracy and moderate assistance: NEW OBJECTIVE 3.5. Patient will recognize pictures and words after studying a list of words and illustrations for 20 seconds. He will recognize 80% of targeted pictures/words when provided with minimal cues across three sessions: NEW OBJECTIVE Plan: Goal # : OBJECTIVE MET: 1.1.Patient will provide at least 6 members per spoken category in 4 out of 5 trials with minimal assistance. OBJECTIVE MET: 1.2.Patient will identify a target word when provided with 3-4 related words or phrases in a word deduction task with 80% accuracy and minimal verbal assistance. OBJECTIVE CONTINUED: 1.3.Patient will utilize Semantic Feature cues (i.e. category, use, function, physical components, association, location) to describe items to a listener successfully in 80% of opportunities with visual support (chart). Status of Goal: Revised Goal Goal # : OBJECTIVE CONTINUED: 2.1. Patient will use at least two compensatory strategies (over articulation/slow rate/writing prado word/elongation of the vowel/increased loudness/phrasing) to improve speech intelligibility within sentences in conversation in 80% of opportunities when provided with minimal verbal cues. OBJECTIVE MET: 2.2. Patient will use pacing cues to accurately produce 4-5 syllable words with 80% accuracy when provided with minimal verbal cues. Status of Goal: Revised Goal Goal # : OBJECTIVE MET: 3.1.Patient will demonstrate mental flexibility by identifying 2 possible solutions to safety situations in 80% of trials with minimal assistance. Status of Goal: Goal Met Goal # : OBJECTIVE MET: 4.1.Patient will listen to auditory information (i.e. voicemail, ads, instructions for medication dosage, invitations) and make note of pertinent information in 80% of opportunities with minimal verbal cues. OBJECTIVE MET: 4.2.Patient will use compensatory strategies (visualization, verbal rehearsal, writing notes, etc) to recall 4 item grocery lists with 80% accuracy and 1-2 repetitions. OBJECTIVE CONTINUED: 4.3.Patient will recite 4 word lists presented to him verbally in reverse order with 80% accuracy and 1-2 repetitions. Status of Goal: Revised Goal Seen by: Graduate/Clinical Fellow: No Supervisory Statement: f_Reg Query Last Value , MHC.AU.SIGNUR Speech Language Pathologist: Leslie Meyers M.A., CCC-REFERENCE ASSISTANT
== END 2022-11-17 11:14 | disposition home or self-care (01) ==
LOC: HO.SH 15:00
PROVIDERS: Visit Provider Internal Medicine
DX: I63.9 Cerebral infarction, unspecified (principal)
CPT/HCPCS: 92507; 92523

== ENCOUNTER → 2022-12-30 09:21 | Outpatient (BNVA) | payer MEDICARE, SELFPAY | PROVIDERS: PCP Internal Medicine; Referring Provider Internal Medicine; Visit Provider Internal Medicine Cardiovascular Disease | DX: I48.20 Chronic atrial fibrillation, unspecified (principal); I95.1 Orthostatic hypotension; I42.9 Cardiomyopathy, unspecified; I45.2 Bifascicular block; E78.00 Pure hypercholesterolemia, unspecified | CPT/HCPCS: 93005; 99212 ==

== ENCOUNTER 2023-01-07 07:28 | Outpatient (REF) | payer MEDICARE, SELFPAY ==
[2023-01-07 07:50] LABS: MANUAL DIFF FLAG NO
[2023-01-07 08:19] LABS: Basophils Absolute Auto 0.1 X10*3/uL (0.0-0.2); Basophils Percent Auto 0.5 % (0-2); Eosinophils Absolute Auto 0.1 X10*3/uL (0.0-0.4); Eosinophils Percent Auto 0.6 % (0-4); Hematocrit 45.5 % (42.0-52.0); Hemoglobin 15.8 g/dl (14.0-18.0); Imm Gran Abs Auto 0.12 X10*3/uL (0.00-0.03); Imm Gran Pct Auto 0.9 % (0.0-0.4); Lymphocytes Absolute Auto 1.3 X10*3/uL (1.2-4.9); Lymphocytes Percent Auto 9.2 % (20-40); Mean Corpuscular HGB Conc 34.7 g/dl (31.0-36.0); Mean Platelet Volume 10.1 fL (9.4-12.4); Monocytes Absolute Auto 0.7 X10*3/uL (0.1-1.2); Monocytes Percent Auto 5.3 % (2-11); Neutrophils Absolute Auto 11.3 x10*3/uL (2.0-8.3); Neutrophils Percent Auto 83.5 % (45-73); Platelet Count 182 X10*3/uL (160-400); Red Blood Count 4.79 X10*6/uL (4.60-5.80); White Blood Count 13.6 X10*3/uL (4.8-10.8)
[2023-01-07 08:37] LABS: B Type Natriuretic Peptide 131 pg/mL (<100)
[2023-01-07 08:45] LABS: Anion Gap 17 (12-20); Blood Urea Nitrogen 20 mg/dL (9-16); Calcium 9.3 mg/dL (8.4-10.2); Carbon Dioxide 25 mmol/L (22-29); Chloride 100 mmol/L (96-108); Estimated Glomerular Filt Rate 53; Potassium 4.6 mmol/L (3.3-5.1); Sodium 137 mmol/L (135-145)
[2023-01-07 08:53] LABS: Alanine Aminotransferase 39 U/L (0-40); Albumin Level 4.3 g/dL (3.5-5.0); Alkaline Phosphatase 70 U/L (39-117); Anion Gap 17 (12-20); Aspartate Amino Transferase 28 U/L (5-37); Bilirubin Total 1.5 mg/dL (0.0-1.0); Blood Urea Nitrogen 21 mg/dL (9-16); Calcium 9.4 mg/dL (8.4-10.2); Carbon Dioxide 25 mmol/L (22-29); Chloride 100 mmol/L (96-108); Cholesterol 213 mg/dL; Estimated Glomerular Filt Rate 54; Glucose Random 189 mg/dL (60-115); HDL Cholesterol 43 mg/dL; LDL Cholesterol Calculated 128 mg/dl; Potassium 4.6 mmol/L (3.3-5.1); Sodium 137 mmol/L (135-145); Total Protein 7.4 g/dL (6.5-8.0); Triglycerides 211 mg/dL
[2023-01-07 09:25] LABS: Folate 7.6 ng/mL (> or = 4.0); Prostate Specific Antigen Scr 2.47 ng/mL (<0.05-4.0); Thyroid Stimulating Hormone 2.97 uIU/mL (0.32-4.0); Vitamin B12 344 pg/mL (200-900)
[2023-01-07 11:54] LABS: Creatinine Urine 140.96 mg/dL; Protein/Creatinine Ratio, Ur 0.15 (<0.2); Total Protein Urine Random 21 mg/dL (<12)
== END 2023-01-07 07:29 | disposition home or self-care (01) ==
LOC: HO.LAB 07:28
PROVIDERS: Absent Provider Internal Medicine Nephrology; PCP Internal Medicine; Visit Provider Internal Medicine
DX: Z12.5 Encounter for screening for malignant neoplasm of prostate (principal); I12.9 Hypertensive chronic kidney disease with stage 1 through stage 4 chronic kidney disease, or unspecified chronic kidney disease; N18.31 Chronic kidney disease, stage 3a; E78.00 Pure hypercholesterolemia, unspecified; I63.9 Cerebral infarction, unspecified; I48.20 Chronic atrial fibrillation, unspecified
CPT/HCPCS: 36415; 80051; 80053; 80061; 82310; 82565; 82607; 82746; 83880; 84153; 84156; 84439; 84443; 84520; 85025

== ENCOUNTER 2023-04-22 07:36 | Outpatient (REF) | payer MEDICARE, SELFPAY ==
[2023-04-22 07:47] LABS: MANUAL DIFF FLAG NO
[2023-04-22 08:36] LABS: Basophils Absolute Auto 0.1 X10*3/uL (0.0-0.2); Basophils Percent Auto 0.3 % (0-2); Eosinophils Absolute Auto 0.1 X10*3/uL (0.0-0.4); Eosinophils Percent Auto 0.7 % (0-4); Hemoglobin 16.4 g/dl (14.0-18.0); Imm Gran Abs Auto 0.14 X10*3/uL (0.00-0.03); Lymphocytes Absolute Auto 1.4 X10*3/uL (1.2-4.9); Lymphocytes Percent Auto 9.8 % (20-40); Mean Corpuscular HGB Conc 34.2 g/dl (31.0-36.0); Mean Corpuscular Hemoglobin 33.4 pg (27.0-33.0); Mean Corpuscular Volume 97.8 fL (80.0-98.0); Mean Platelet Volume 10.2 fL (9.4-12.4); Monocytes Absolute Auto 0.8 X10*3/uL (0.1-1.2); Monocytes Percent Auto 5.7 % (2-11); Neutrophils Percent Auto 82.5 % (45-73); Platelet Count 201 X10*3/uL (160-400); Red Blood Count 4.91 X10*6/uL (4.60-5.80); Red Cell Distribution Width 13.4 % (11.0-16.0); White Blood Count 14.6 X10*3/uL (4.8-10.8)
[2023-04-22 08:42] LABS: Estimated Average Glucose 128 mg/dL; Hemoglobin A1c % 6.1 % (<6.0)
[2023-04-22 10:05] LABS: Alanine Aminotransferase 39 U/L (0-40); Albumin Level 4.4 g/dL (3.5-5.0); Alkaline Phosphatase 59 U/L (39-117); Anion Gap 18 (12-20); Aspartate Amino Transferase 23 U/L (5-37); Bilirubin Total 1.1 mg/dL (0.0-1.0); Blood Urea Nitrogen 18 mg/dL (9-16); Calcium 9.9 mg/dL (8.4-10.2); Carbon Dioxide 22 mmol/L (22-29); Chloride 102 mmol/L (96-108); Cholesterol 198 mg/dL (<200); Estimated Glomerular Filt Rate 56; Glucose Random 186 mg/dL (60-115); HDL Cholesterol 40 mg/dL (>40); LDL Cholesterol Calculated 119 mg/dL (<100); Potassium 4.7 mmol/L (3.3-5.1); Sodium 137 mmol/L (135-145); Total Protein 7.9 g/dL (6.5-8.0); Triglycerides 199 mg/dL (<150)
[2023-04-22 10:24] LABS: Thyroid Stimulating Hormone 3.59 uIU/mL (0.32-4.0)
[2023-04-22 10:53] LABS: Creatinine Urine 126.73 mg/dL; Microalbum/Creatinine Ratio Ur 235.9 ug/mg cr (<30)
== END 2023-04-22 07:37 | disposition home or self-care (01) ==
LOC: HO.LAB 07:36
PROVIDERS: PCP Internal Medicine; Visit Provider Internal Medicine
DX: E11.65 Type 2 diabetes mellitus with hyperglycemia (principal); I48.20 Chronic atrial fibrillation, unspecified; E78.00 Pure hypercholesterolemia, unspecified
CPT/HCPCS: 36415; 80053; 80061; 82043; 82570; 83036; 84439; 84443; 85025

== ENCOUNTER 2023-05-05 10:35 | Outpatient (AMB) | payer MEDICARE, SELFPAY ==
--- NOTE | 2023-05-05 10:38 | A.OFFPC_ITS ---
Vital Signs 05/05/23 10:39 Height 5 ft 6 in Weight 149 lb BMI 24.0 BP 106/54 L Blood Pressure Location Lt brachial Position Sitting Pulse 72 Pulse Source Pulse Oximeter Pulse Oximetry (%) 98 Oxygen Delivery Method Room Air Intake Visit Reasons: DM Allergies lisinopril Allergy (Unknown, Verified 05/05/23 10:40) sob Anqxluo-KIZ-SyV Reductase Inhibitor [Bozjvlh-Tyu-Sqd Reductase Inhibitor] Allergy (Unknown, Verified 05/05/23 10:40) myalgia prednisone Allergy (Verified 05/05/23 10:40) Unknown mold and dustmites Allergy (Unknown, Uncoded 05/05/23 10:40) unknown Medication List - Last Reconciled 05/05/23 by Parth Rajan MD allopurinol 200 mg PO DAILY amlodipine 2.5 mg PO QPM apixaban (Eliquis) 5 mg PO BID fluoxetine 10 mg PO DAILY fluticasone propionate 50 mcg/actuation 1 spray intranasal BID PRN levothyroxine 50 mcg PO QAM 90 days metoprolol succinate ER 75 mg See Protocol PO BID omeprazole 20 mg PO DAILY@0630 psyllium husk (Metamucil) 0.8 grams PO DAILY Tobacco use date assessed: 10/01/22 Fall risk assessment: No Falls in past year Last assessed Fall Risk: 05/05/23 Dental Screening Dental Screen Date: 05/05/23 Did you have a dental visit in the last 12 months?: Yes Did you have a dental problem in the last 6 months where you did not have access to dental care?: No Was dental information given to patient?: Patient has dentist HPI DM HPI Details 72-year-old male with diabetes mellitus generalized anxiety disorder hypothyroidism hypercholesterolemia hypertension atrial fibrillation and history of CVA coming in for follow-up. May last seen and last complete blood work was done in April 2023. Colonoscopy is up-to-date. Patient did see Nephrology 02/02/2023 diagnosis of chronic kidney disease stage 3 vascular need good hydration stable renal function low-potassium diet continuing with allopurinol 200 mg once a day [facility] Medical History (Updated 05/05/23 @ 11:20 by Parth Rajan MD) Elevated blood sugar Pericardial effusion Type 2 diabetes mellitus with hyperglycemia Vitamin D deficiency Fatty liver Asthma Erectile dysfunction Esophagitis Gout Hypothyroidism HTN (hypertension) CKD (chronic kidney disease) Chronic atrial fibrillation RBBB Orthostatic hypotension Surgical History History of thumb surgery Family History Father CAD (coronary artery disease) Mother Stroke Family/Other Stroke Other No family history of cancer Social History Household Members: Spouse Housing: House Are you a primary childcare center administrator to a significant other at home: No Do you presently have visiting nurse or other home services: No Alcohol intake: current Patient Tobacco Use Status: Never used Tobacco e-Cigarette/Vaping Use: Never Used Second Hand Smoke Exposure: No service: No Current occupational status: retired Cognitive needs: No Hearing needs: Yes Vision needs: Yes Questionnaire PHQ-9 Over the last 2 weeks, how often have you been bothered by any of the following problems? 1. Little interest or pleasure in doing things: not at all 2. Feeling down, depressed, or hopeless: not at all 3. Trouble falling or staying asleep, or sleeping too much: not at all 4. Feeling tired or having little energy: not at all 5. Poor appetite or overeating: not at all 6. Feeling bad about yourself - or that you are a failure or have let yourself or your family down: not at all 7. Trouble concentrating on things, such as reading the newspaper or watching television: not at all 8. Moving or speaking so slowly that other people could have noticed. Or the opposite - being so fidgety or restless that you have been moving around a lot more than usual: not at all 9. Thoughts that you would be better off or of hurting yourself in some way: not at all Total score: 0 Depression Screening Interpretation: Negative Source: Developed by Drs. Adilson Judd, Frances Feliciano, Tye Bellamy and colleagues, with an educational mona from [employer]. Thrive Questionnaire Date Thrive assessed: 10/01/22 AUDIT C Alcohol Use Questionnaire (AUDIT-C) 1. How often do you have a drink containing alcohol?: 2-3 times a week 2. How many drinks containing alcohol do you have on a typical day when you are drinking?: 1 or 2 3. How often do you have six or more drinks on one occasion?: Never Total Score: 3 GINO-7 AMB Questionnaire GINO-7 Date GINO - 7 assessed: 10/01/22 Source: Developed by Drs. Adilson Judd, Frances Feliciano, Tye Bellamy and colleagues, with an educational mona from [employer]. Physical exam (Primary Care) Vital Signs: Last Vital Signs Pulse 72 05/05/23 10:39 BP 106/54 L 05/05/23 10:39 Pulse Ox 98 05/05/23 10:39 Oxygen Delivery Method Room Air 05/05/23 10:39 BMI result Body Mass Index 24.0 Tobacco/Smoking Status: Tobacco use Status Tobacco use date assessed 10/01/22 05/05/23 10:43 Patient Tobacco Use Status Never used Tobacco 05/05/23 10:43 e-Cigarette/Vaping Use Never Used 05/05/23 10:43 PHQ-9: PHQ-9 Score PHQ-9: Total score 0 05/05/23 10:43 Depression Screening Interpretation: Negative Thrive Assessment: Date of Thrive Assessment Date Thrive assessed 10/01/22 05/05/23 10:43 Const General: alert; No acute distress Eyes Conjunctivae: conjunctivae normal Resp Auscultation: clear to auscultation bilaterally Cardio Rate: regular rate Rhythm: regular rhythm GI Inspection: Yes normal to inspection Extrem General: Yes normal to inspection and No edema Assessment and Plan Assessment & Plan (1) Type 2 diabetes mellitus with hyperglycemia: Code(s): E11.65 - Type 2 diabetes mellitus with hyperglycemia Plan: Decrease the amount of carbohydrate intake, pasta, bread, rice and potatoes are all sugar and that is aside from all the sweet stuff, remember that fruits are good but they are Sweet also. Hemoglobin A1c goal of less than 7.0 patient is diet controlled (2) Hypercholesterolemia: Code(s): E78.00 - Pure hypercholesterolemia, unspecified Plan: Avoid fried foods, chicken skin, eggs, butter margarine, pastries and meat. Be it pork or beef they have a lot of cholesterol LDL goal of less than 70 patient is diet controlled also (3) HTN (hypertension): Code(s): I10 - Essential (primary) hypertension Qualifiers: Hypertension type: unspecified Qualified Code(s): I10 - Essential (primary) hypertension Plan: Continue with blood pressure medication. Decrease salt intake and exercise patient is on amlodipine 2.5 mg once a day metoprolol 75 mg twice a day (4) CVA (cerebral vascular accident): Comment: October 2021 mild left hemiparesis an MRI of brain revealed an acute right subcortical ischemic infarction Code(s): I63.9 - Cerebral infarction, unspecified Plan: Control the cholesterol, weight, blood pressure, diabetes (5) Chronic atrial fibrillation: Code(s): I48.20 - Chronic atrial fibrillation, unspecified Plan: Continue with anticoagulation with Eliquis 5 mg twice a day Orders: Orders Lipid Panel 3 Months E78.00 - Pure hypercholesterolemia, unspecified Comprehensive Met. Panel 3 Months E78.00 - Pure hypercholesterolemia, unspecified Hemoglobin A1c 3 Months E11.65 - Type 2 diabetes mellitus with hyperglycemia Medications: New ezetimibe (Zetia) 10 mg PO DAILY 30 tabs 4RF E78.00 - Pure hypercholesterolemia, unspecified Coding Level of Care Code Est Pt Level 4 (82536) Diagnoses Type 2 diabetes mellitus with hyperglycemia E11.65 Hypercholesterolemia E78.00 HTN (hypertension) I10 Hypertension type: unspecified CVA (cerebral vascular accident) I63.9 Chronic atrial fibrillation I48.20
[2023-05-05 10:39] VITALS: BP 106/54; PULSE 72; O2SAT 98; BMI 24.0
== END 2023-05-05 11:40 | disposition home or self-care (01) ==
PROVIDERS: Visit Provider Internal Medicine
DX: E11.65 Type 2 diabetes mellitus with hyperglycemia (principal); I10 Essential (primary) hypertension; Z86.73 Personal history of transient ischemic attack (TIA), and cerebral infarction without residual deficits; I48.20 Chronic atrial fibrillation, unspecified; E78.00 Pure hypercholesterolemia, unspecified
CPT/HCPCS: 99214

== ENCOUNTER 2023-08-12 08:36 | Outpatient (REF) | payer MEDICARE, SELFPAY ==
[2023-08-12 09:22] LABS: Estimated Average Glucose 131 mg/dL; Hemoglobin A1c % 6.2 % (<6.0)
[2023-08-12 09:37] LABS: Alanine Aminotransferase 16 U/L (0-40); Albumin Level 4.3 g/dL (3.5-5.0); Alkaline Phosphatase 57 U/L (39-117); Anion Gap 16 (12-20); Aspartate Amino Transferase 15 U/L (5-37); Bilirubin Total 1.4 mg/dL (0.0-1.0); Blood Urea Nitrogen 19 mg/dL (9-16); Calcium 9.8 mg/dL (8.4-10.2); Carbon Dioxide 23 mmol/L (22-29); Chloride 99 mmol/L (96-108); Cholesterol 151 mg/dL (<200); Estimated Glomerular Filt Rate 51; Glucose Random 151 mg/dL (60-115); HDL Cholesterol 50 mg/dL (>40); LDL Cholesterol Calculated 78 mg/dL (<100); Potassium 4.1 mmol/L (3.3-5.1); Sodium 134 mmol/L (135-145); Total Protein 8.1 g/dL (6.5-8.0); Triglycerides 116 mg/dL (<150)
== END 2023-08-12 08:37 | disposition home or self-care (01) ==
LOC: HO.LAB 08:36
PROVIDERS: PCP Internal Medicine; Visit Provider Internal Medicine
DX: E11.65 Type 2 diabetes mellitus with hyperglycemia (principal); E78.00 Pure hypercholesterolemia, unspecified
CPT/HCPCS: 36415; 80053; 80061; 83036

== ENCOUNTER 2023-08-18 12:38 | Outpatient (AMB) | payer MEDICARE, SELFPAY ==
[2023-08-18 12:39] VITALS: BP 100/68; O2SAT 97; BMI 24.4
--- NOTE | 2023-08-18 12:39 | A.OFFPC_ITS ---
Vital Signs 08/18/23 12:39 Height 5 ft 6 in Weight 151 lb BMI 24.4 BP 100/68 Blood Pressure Location Lt brachial Position Sitting Pulse Source Pulse Oximeter Pulse Oximetry (%) 97 Oxygen Delivery Method Room Air Intake Visit Reasons: 3mon F/U Nutrition Teacher Required: No Allergies lisinopril Allergy (Unknown, Verified 08/18/23 12:39) sob Rvmxbvu-SYY-WhQ Reductase Inhibitor [Goznlrg-Uay-Xdw Reductase Inhibitor] Allergy (Unknown, Verified 08/18/23 12:39) myalgia prednisone Allergy (Verified 08/18/23 12:39) Unknown mold and dustmites Allergy (Unknown, Uncoded 08/18/23 12:39) unknown Tobacco use date assessed: 08/18/23 Fall risk assessment: No Falls in past year Last assessed Fall Risk: 08/18/23 HPI 3mon F/U HPI Details 73-year-old male with controlled diabete s mellitus hypercholesterolemia hypertension history of CVA and atrial fibrillation last seen in April 2023. Patient is here for follow-up. Colonoscopy up-to-date 2018 [facility] Medical History (Updated 05/05/23 @ 11:20 by Parth Rajan MD) Elevated blood sugar Pericardial effusion Type 2 diabetes mellitus with hyperglycemia Vitamin D deficiency Fatty liver Asthma Erectile dysfunction Esophagitis Gout Hypothyroidism HTN (hypertension) CKD (chronic kidney disease) Chronic atrial fibrillation RBBB Orthostatic hypotension Surgical History History of thumb surgery Family History Father CAD (coronary artery disease) Mother Stroke Family/Other Stroke Other No family history of cancer Social History Household Members: Spouse Housing: House Are you a primary progressive care manager to a significant other at home: No Do you presently have visiting nurse or other home services: No Alcohol intake: current Patient Tobacco Use Status: Never used Tobacco e-Cigarette/Vaping Use: Never Used Second Hand Smoke Exposure: No service: No Current occupational status: retired Cognitive needs: No Hearing needs: Yes Vision needs: Yes Questionnaire PHQ-9 Over the last 2 weeks, how often have you been bothered by any of the following problems? 1. Little interest or pleasure in doing things: not at all 2. Feeling down, depressed, or hopeless: not at all 3. Trouble falling or staying asleep, or sleeping too much: not at all 4. Feeling tired or having little energy: not at all 5. Poor appetite or overeating: not at all 6. Feeling bad about yourself - or that you are a failure or have let yourself or your family down: not at all 7. Trouble concentrating on things, such as reading the newspaper or watching television: not at all 8. Moving or speaking so slowly that other people could have noticed. Or the opposite - being so fidgety or restless that you have been moving around a lot more than usual: not at all 9. Thoughts that you would be better off or of hurting yourself in some way: not at all Total score: 0 Depression Screening Interpretation: Negative Depression Screening Done: Yes Source: Developed by Drs. Adilson Judd, Frances Feliciano, Tye Bellamy and colleagues, with an educational mona from [employer]. Thrive Questionnaire Date Thrive assessed: 10/01/22 AUDIT C Alcohol Use Questionnaire (AUDIT-C) 1. How often do you have a drink containing alcohol?: 2-3 times a week 2. How many drinks containing alcohol do you have on a typical day when you are drinking?: 1 or 2 3. How often do you have six or more drinks on one occasion?: Never Total Score: 3 GINO-7 AMB Questionnaire GINO-7 Date GINO - 7 assessed: 10/01/22 Source: Developed by Drs. Adilson Judd, Frances Feliciano, Tye Bellamy and colleagues, with an educational mona from [employer]. Physical exam (Primary Care) Vital Signs: Last Vital Signs BP 100/68 08/18/23 12:39 Pulse Ox 97 08/18/23 12:39 Oxygen Delivery Method Room Air 08/18/23 12:39 BMI result Body Mass Index 24.4 Tobacco/Smoking Status: Tobacco use Status Tobacco use date assessed 08/18/23 08/18/23 12:40 Patient Tobacco Use Status Never used Tobacco 08/18/23 12:40 e-Cigarette/Vaping Use Never Used 08/18/23 12:40 PHQ-9: PHQ-9 Score PHQ-9: Total score 0 08/18/23 12:40 Depression Screening Interpretation: Negative Thrive Assessment: Date of Thrive Assessment Date Thrive assessed 10/01/22 08/18/23 12:40 Const General: alert; No acute distress Eyes Conjunctivae: conjunctivae normal Resp Auscultation: clear to auscultation bilaterally Cardio Rate: regular rate Rhythm: regular rhythm GI Inspection: Yes normal to inspection Extrem General: Yes normal to inspection and No edema Assessment and Plan Assessment & Plan (1) Type 2 diabetes mellitus with hyperglycemia: Code(s): E11.65 - Type 2 diabetes mellitus with hyperglycemia Plan: Decrease the amount of carbohydrate intake, pasta, bread, rice and potatoes are all sugar and that is aside from all the sweet stuff, remember that fruits are good but they are Sweet also. Hemoglobin A1c goal of less than 7.0 patient on diet control (2) Hypothyroidism: Code(s): E03.9 - Hypothyroidism, unspecified Plan: Continue with thyroid medication (3) Chronic atrial fibrillation: Code(s): I48.20 - Chronic atrial fibrillation, unspecified Plan: Continue with anticoagulation with Eliquis twice a year for renal function (4) CVA (cerebral vascular accident): Comment: October 2021 mild left hemiparesis an MRI of brain revealed an acute right subcortical ischemic infarction Code(s): I63.9 - Cerebral infarction, unspecified Plan: Control the cholesterol, weight, blood pressure, diabetes on anticoagulation (5) HTN (hypertension): Code(s): I10 - Essential (primary) hypertension Qualifiers: Hypertension type: unspecified Qualified Code(s): I10 - Essential (primary) hypertension Plan: Continue with blood pressure medication. Decrease salt intake and exercise patient takes amlodipine 2.5 mg once a day metoprolol 75 mg twice a day (6) Hypercholesterolemia: Code(s): E78.00 - Pure hypercholesterolemia, unspecified Plan: Avoid fried foods, chicken skin, eggs, butter margarine, pastries and meat. Be it pork or beef they have a lot of cholesterol LDL goal of below 70 on Zetia. (7) GINO (generalized anxiety disorder): Code(s): F41.1 - Generalized anxiety disorder Plan: Continue with present medication. Orders: Orders Magnesium 6 Months I48.20 - Chronic atrial fibrillation, unspecified Thyroid Stimulating Hormone 6 Months I48.20 - Chronic atrial fibrillation, unspecified Lipid Panel 6 Months E78.00 - Pure hypercholesterolemia, unspecified, I48.20 - Chronic atrial fibrillation, unspecified Hemoglobin A1c 6 Months E11.65 - Type 2 diabetes mellitus with hyperglycemia Microalbumin, Random (w Creat) 6 Months E11.65 - Type 2 diabetes mellitus with hyperglycemia CA echo transthoracic complete Today I48.20 - Chronic atrial fibrillation, unspecified Complete Blood Count Auto Diff 6 Months I48.20 - Chronic atrial fibrillation, unspecified B Type Natriuretic Peptide 6 Months I48.20 - Chronic atrial fibrillation, unspecified Comprehensive Met. Panel 6 Months I48.20 - Chronic atrial fibrillation, unspecified Vitamin B12 and Folate 6 Months I48.20 - Chronic atrial fibrillation, unspecified Free T4 (Free Thyroxine) 6 Months I48.20 - Chronic atrial fibrillation, unspecified Creatinine Urine 6 Months E11.65 - Type 2 diabetes mellitus with hyperglycemia Coding Level of Care Code Tele Est Pt Level 4 (29361) Diagnoses Type 2 diabetes mellitus with hyperglycemia E11.65 Hypothyroidism E03.9 Chronic atrial fibrillation I48.20 CVA (cerebral vascular accident) I63.9 HTN (hypertension) I10 Hypertension type: unspecified Hypercholesterolemia E78.00 GINO (generalized anxiety disorder) F41.1
== END 2023-08-18 13:08 | disposition home or self-care (01) ==
PROVIDERS: PCP Internal Medicine; Visit Provider Internal Medicine
DX: E11.65 Type 2 diabetes mellitus with hyperglycemia (principal); E03.9 Hypothyroidism, unspecified; I48.20 Chronic atrial fibrillation, unspecified; I69.354 Hemiplegia and hemiparesis following cerebral infarction affecting left non-dominant side; E78.00 Pure hypercholesterolemia, unspecified; F41.1 Generalized anxiety disorder
CPT/HCPCS: 99214

== ENCOUNTER → 2023-08-30 09:50 | Outpatient (REF) | payer MEDICARE, SELFPAY ==
--- NOTE | 2023-08-30 09:55 | CA_ITS ---
Transthoracic Echocardiogram Patient (Last, First, Middle): Gabriele Harirs H Gender: Male Date of : 1950 Age: 73 Procedure Date: 08/30/2023 Procedure Type: Transthoracic Echocardiogram Location: OP Height: 165.1 cm Weight: 68.04 kg BSA: 1.75 m2 Heart Rate: bpm BP: 138 / 74 mmHg Fitness Supervisor: ANITHA Referring MD: Parth Rajan MD Shank Stapler: Chas Gonzalez MD Symptoms: I48.20 - Chronic atrial fibrillation, unspecified Study Quality: Adequate ECG Rhythm: Atrial Fibrillation Conclusions: - 1. Normal LV ejection fraction 55-60% 2. Mild biatrial enlargement 3. Mild mitral regurgitation 4. Normal RV systolic pressure 5. No pericardial effusion Findings Left Ventricle Normal left ventricular size, thickness, and systolic function. The visually estimated ejection fraction is between 55-60%. Diastolic function is normal for age. Right Ventricle Normal right ventricular cavity size and systolic function. Atria Mild biatrial enlargement. There is no evidence of interatrial shunt. Aortic Valve Normal aortic valve structure and function. There is no aortic valve stenosis. There is no aortic valve regurgitation. Mitral Valve There is mild anterior mitral leaflet thickening. There is mild mitral valve regurgitation. There is no mitral valve stenosis. Pulmonic Valve The pulmonic valve is likely normal. There is trace pulmonic valve regurgitation. Tricuspid Valve Normal tricuspid valve structure. There is mild tricuspid valve regurgitation. The right ventricular systolic pressure is normal. The right ventricular systolic pressure is 32 mmHg. Normal right atrial pressure. There is no evidence of pulmonary hypertension. Great Vessels All visible segments of the aorta are normal in size. The pulmonary artery was not well visualized. Venous The inferior vena cava is normal in size and collapses greater than 50% with inspiration. Pericardium/Pleural There is no evidence of pericardial effusion. Prior Study Comparison Changes noted compared to prior study dated: 12/24/2021. RV and LV systolic function are within normal range Measurements 2D Linear Measurements IVSd: 0.90 0.6-0.9/0.6-1.0 cm LVIDd: 4.96 3.9-5.3/4.2-5.9 cm LVIDd Index: 2.83 2.4-3.2/2.2-3.1 cm/m2 LVIDs: 3.27 2.0-3.6 cm LVPWd: 1.09 0.7-1.1 cm LA Diam: 4.50 2.7-3.8/3.0-4.0 cm LAIDs Index: 2.57 1.5-2.3 cm/m2 LV Mass: 222.07 67-162/88-224 g LV Mass Index: 126.90 43-95/49-115 g/m2 LVOT Diam: 2.00 3.0+(-)1.3 cm 2D Systolic Function EF 4C: 64.80 >55% EF 2C: 48.50 >55% EF BiP: 56.40 >55% Mitral Valve MV Pk E: 0.68 MV Decel Time: 238.00 E'Lateral: 7.94 E'Medial: 6.31 E/E' Med: 10.80 E/E' Lat: 8.60 PHT: 70.00 MVA PHT: 3.14 Decel Duval: 2.90 Aortic Valve AoV Pk [place]: 1.07 AoV Mn [place]: 0.78 AoV VTI: 0.23 AoV Pk Grad: 5.00 Aov Mn Grad: 3.00 TIGRE Cont.VTI: 1.78 LVOT LVOT Pk [place]: 0.64 LVOT Mn [place]: 0.43 LVOT VTI: 0.13 LVOT Pk Grad: 2.00 LVOT Mn Grad: 1.00 LVOT Diam: 2.00 LVOT Area: 3.14 Diastolic Function MV Pk E: 0.68 E'Medial: 6.31 E/E' Med: 10.80 E' Laterial: 7.94 E/E' Lat: 8.60 Right Ventricle TAPSE (mm): 17.30 TVS' [place]: 9.37 Tricuspid Valve TR Pk [place]: 2.70 TR Pk Grad: 29.00 RA Press: 3.00 RVSP: 32.00 Great Vessels Aorta Sinus of Valsalva: 3.30 2.0-3.[address] [place]: 2.33 1.7-3.4 cm Ao Asc: 3.40 2.1-3.4 cm Updated in Other Vendor System with Status of Final Chas Gonzalez MD electronically signed on 08/30/2023 5:28:20 PM with status of Final
== END ==
LOC: HO.CARD 09:50
PROVIDERS: PCP Internal Medicine; Visit Provider Internal Medicine
DX: I48.20 Chronic atrial fibrillation, unspecified (principal)
CPT/HCPCS: 93306

== ENCOUNTER → 2023-08-30 09:55 | Outpatient (BNV) | payer MEDICARE, SELFPAY | PROVIDERS: PCP Internal Medicine; Visit Provider Internal Medicine Cardiovascular Disease | DX: I36.1 Nonrheumatic tricuspid (valve) insufficiency (principal); I48.20 Chronic atrial fibrillation, unspecified | CPT/HCPCS: 93306 ==

== ENCOUNTER 2024-01-10 09:33 | Outpatient (AMB) | payer MEDICARE, SELFPAY ==
[2024-01-10 09:47] VITALS: BP 110/72; PULSE 114; BMI 24.2
--- NOTE | 2024-01-10 09:47 | MHC.OFFVIS ---
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 Required: No Cognos Bi Administrator: Cognos Bi Administrator Present Accompanied by: Spouse Allergies lisinopril Allergy (Unknown, Verified 08/18/23 12:39) sob Wqkbdri-MFM-YyP Reductase Inhibitor [Cfxwmze-Frs-Zam Reductase Inhibitor] Allergy (Unknown, Verified 08/18/23 12:39) myalgia prednisone Allergy (Verified 08/18/23 12:39) Unknown mold and dustmites Allergy (Unknown, Uncoded 08/18/23 12:39) unknown Medication List - Last Reconciled 01/10/24 by Chas Gonzalez MD allopurinol 200 mg PO DAILY amlodipine 2.5 mg PO QPM apixaban (Eliquis) 5 mg PO BID ezetimibe (Zetia) 10 mg PO DAILY fluoxetine 10 mg PO DAILY fluticasone propionate 50 mcg/actuation 1 spray intranasal BID PRN levothyroxine 50 mcg PO QAM 90 days metoprolol succinate ER 75 mg See Protocol PO BID omeprazole 20 mg PO DAILY@0630 psyllium husk (Metamucil) 0.8 grams PO DAILY HPI Comments Details: Gabriele comes for follow-up. He is accompanied by his . He has not been exercising much. He said he has right hip discomfort which prevents him from walking. He said he has not in the best shape as he was as he now gets tired walking. has notice occasionally fast heart rate. Denies any lightheadedness, syncope. Denies any orthopnea, PND, leg edema. No bleeding issues or neurologic events. Blood pressure is generally well controlled. He denies any lightheadedness or syncope. COUNTS INCLUDE 234 BEDS AT THE [facility] Medical History Elevated blood sugar Pericardial effusion Type 2 diabetes mellitus with hyperglycemia Vitamin D deficiency Fatty liver Asthma Erectile dysfunction Esophagitis Gout Hypothyroidism HTN (hypertension) CKD (chronic kidney disease) Chronic atrial fibrillation RBBB Orthostatic hypotension Surgical History History of thumb surgery Family History Father CAD (coronary artery disease) Mother Stroke Family/Other Stroke Other No family history of cancer Social History Household Members: Spouse Housing: House Are you a primary hospice home care coordinator to a significant other at home: No Do you presently have visiting nurse or other home services: No Alcohol intake: current Patient Tobacco Use Status: Never used Tobacco e-Cigarette/Vaping Use: Never Used Second Hand Smoke Exposure: No service: No Current occupational status: retired Cognitive needs: No Hearing needs: Yes Vision needs: Yes Review of Systems Const Denies chills, Denies fatigue, Denies fever(s), Denies frequent falls, Denies weakness, Denies weight gain and Denies weight loss ENT Denies dizziness Card Denies chest pain, Denies leg edema, Denies lightheadedness, Denies palpitations, Denies dyspnea, Denies dyspnea on exertion, Denies orthopnea and Denies other (loss of consciousness) Resp Denies cough, Denies dyspnea and Denies dyspnea on exertion GI Denies hematochezia and Denies change in stool character Musc Denies abnormal gait, Denies muscle weakness, Denies numbness, Denies radiating pain into limb and Denies tingling Neuro Denies abnormal gait, Denies dizziness, Denies frequent falls, Denies numbness, Denies tingling and Denies weakness Endo Denies fatigue and Denies palpitations Physical Exam Vital Signs: Last Vital Signs Pulse 114 H 01/10/24 09:47 BP 110/72 01/10/24 09:47 BMI result Body Mass Index 24.2 Const General: cooperative, comfortable, no acute distress, alert and awake Nutritional Appearance: average body habitus Orientation/consciousness: patient oriented x3 Neck Neck: Yes trachea midline, Yes supple and Yes no JVD Chest Chest palpation & inspection: normal inspection of the chest Resp Effort & Inspection: normal respiratory effort Auscultation: clear to auscultation bilaterally Cardio Jugular venous distension: no JVD Palpation: normal PMI Rate: tachycardic Rhythm: abnormal rhythm irregularly irregular Heart sounds: S1 normal heart sound present, S2 normal heart sound present, no click, no gallops, no murmurs and no rubs GI Auscultation: normal bowel sounds Skin General skin exam: no rashes or lesions noted Neuro General: patient oriented x3 and no focal motor deficits Extrem General: Yes no clubbing, cyanosis or edema Office Procedures EKG Details: EKG shows atrial flutter with rapid ventricular response with intermittent aberrant conduction [id number]-[id number], Complete Assessment & Plan Assessment & Plan (1) Chronic atrial fibrillation: Code(s): I48.20 - Chronic atrial fibrillation, unspecified Category: Medical Plan: Chronic atrial fibrillation, currently with not adequate rate control. Advised to increase metoprolol to 100 mg b.i.d.. Advised to monitor blood pressure at home. Advised to monitor heart rate home. No signs or symptoms of heart failure at this point time. Given his prior CVA remains at very high risk for thromboembolic complication. Continue with full oral anticoagulation Eliquis. Quarterly renal function test should be pursued. (2) Orthostatic hypotension: Code(s): I95.1 - Orthostatic hypotension Category: Medical Plan: Prior history of orthostatic hypotension with syncope. Patient currently not having any symptoms related to it. Blood pressure is well controlled. However increasing metoprolol dose as above will hold off on amlodipine dose to prevent any episodes of orthostatic hypertension syncope. This was discussed with him. Advised to maintain adequate hydration. Orthostatic precautions discussed. Encouraged to participate in more regular physical activity. Will follow up in the clinic in 6 months time, sooner p.r.n.. Thank you for allowing me to partake in his Medications: New metoprolol succinate ER (Toprol XL) 100 mg PO BID 180 tabs 2RF Discontinued metoprolol succinate ER Discontinued Reason: Doctor's Order 75 mg See Protocol PO BID 180 tabs 3RF amlodipine Discontinued Reason: Doctor's Order 2.5 mg PO QPM 90 tabs 3RF I48.20 - Chronic atrial fibrillation, unspecified Coding Level of Care Code Est Pt Level 4 (68705) Diagnoses Chronic atrial fibrillation I48.20 Orthostatic hypotension I95.1 CPT Codes EKG - CPT: 48337-[id number], Complete ([id number])
== END 2024-01-10 10:14 | disposition home or self-care (01) ==
PROVIDERS: Visit Provider Internal Medicine Cardiovascular Disease
DX: I48.20 Chronic atrial fibrillation, unspecified (principal); I95.1 Orthostatic hypotension
CPT/HCPCS: 93010; 99214

== ENCOUNTER → 2024-01-10 09:33 | Outpatient (BNVA) | payer MEDICARE, SELFPAY | PROVIDERS: Visit Provider Internal Medicine Cardiovascular Disease | DX: I48.20 Chronic atrial fibrillation, unspecified (principal); I95.1 Orthostatic hypotension | CPT/HCPCS: 93005; 99212 ==

== ENCOUNTER 2024-02-03 07:45 | Outpatient (REF) | payer MEDICARE, SELFPAY ==
[2024-02-03 08:49] LABS: Anion Gap 12 (12-20); Blood Urea Nitrogen 17 mg/dL (9-16); Calcium 9.4 mg/dL (8.4-10.2); Carbon Dioxide 28 mmol/L (22-29); Chloride 101 mmol/L (96-108); Estimated Glomerular Filt Rate 57; Potassium 4.6 mmol/L (3.3-5.1); Sodium 136 mmol/L (135-145)
== END 2024-02-03 07:46 | disposition home or self-care (01) ==
LOC: HO.LAB 07:45
PROVIDERS: Absent Provider Internal Medicine Nephrology; PCP Internal Medicine; Visit Provider Internal Medicine
DX: I12.9 Hypertensive chronic kidney disease with stage 1 through stage 4 chronic kidney disease, or unspecified chronic kidney disease (principal); N18.31 Chronic kidney disease, stage 3a
CPT/HCPCS: 36415; 80051; 82310; 82565; 84520

== ENCOUNTER 2024-02-08 10:22 | Outpatient (AMB) | payer MEDICARE, SELFPAY ==
[2024-02-08 10:22] VITALS: BP 130/70; PULSE 59; O2SAT 98; BMI 24.2
--- NOTE | 2024-02-08 10:22 | HO.NEPHOV ---
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 He was accompanied by his during this office visit. He has history of CVA in the past without much residual deficits. His blood sugars and blood pressures are well controlled. He does not take any vtxy-qtw-dvwvulq medications. His heart rate is well controlled. He has not on amiodarone anymore. He denies chest pain, shortness of breath, pedal edema, nausea, vomiting, diarrhea or hematuria. He denied orthostatic symptoms. He maintain good hydration and avoid nonsteroidal anti-inflammatories [facility] Medical History Elevated blood sugar Pericardial effusion Type 2 diabetes mellitus with hyperglycemia Vitamin D deficiency Fatty liver Asthma Erectile dysfunction Esophagitis Gout Hypothyroidism HTN (hypertension) CKD (chronic kidney disease) Chronic atrial fibrillation RBBB Orthostatic hypotension Surgical History History of thumb surgery Family History Father CAD (coronary artery disease) Mother Stroke Family/Other Stroke Other No family history of cancer Social History Household Members: Spouse Housing: House Are you a primary youth care specialist to a significant other at home: No Do you presently have visiting nurse or other home services: No Alcohol intake: current Patient Tobacco Use Status: Never used Tobacco e-Cigarette/Vaping Use: Never Used Second Hand Smoke Exposure: No service: No Current occupational status: retired Cognitive needs: No Hearing needs: Yes Vision needs: Yes Review of Systems Const All systems reviewed & are unremarkable except as noted in HPI and below Physical Exam Vital Signs: Last Vital Signs Pulse 59 02/08/24 10:22 BP 130/70 02/08/24 10:22 Pulse Ox 98 02/08/24 10:22 Oxygen Delivery Method Room Air 02/08/24 10:22 BMI result Body Mass Index 24.2 Const General: comfortable and no acute distress Orientation/consciousness: patient oriented x3 HEENT Head: Yes normocephalic Mouth: Normal oral and palatal mucosa present Eyes EOM: EOMs intact bilaterally Neck Neck: Yes supple Resp Auscultation: clear to auscultation bilaterally Cardio Jugular venous distension: no JVD Rate: regular rate GI Palpation (GI): Soft to palpation Auscultation: normal bowel sounds General: Yes no CVA tenderness Back/Spine/Pelvis Back: no CVA tenderness Skin General skin exam: no rashes or lesions noted Neuro General: patient oriented x3 and moves all extremities Extrem General: Yes no pedal edema Results Reviewed Nephrology Results: Hgb 16.4 g/dl (14.0-18.0) 04/22/23 WBC 14.6 X10*3/uL (4.8-10.8) H 04/22/23 Plt Count 201 X10*3/uL (160-400) 04/22/23 Sodium 136 mmol/L (135-145) 02/03/24 Potassium 4.6 mmol/L (3.3-5.1) 02/03/24 Chloride 101 mmol/L (96-108) 02/03/24 Carbon Dioxide 28 mmol/L (22-29) 02/03/24 BUN 17 mg/dL (9-16) H 02/03/24 Creatinine 1.25 mg/dL (0.5-1.4) 02/03/24 Calcium 9.4 mg/dL (8.4-10.2) 02/03/24 Urine Creatinine 126.73 mg/dL 04/22/23 Protein/Creatinin Ratio 0.15 (<0.2) 01/07/23 Assessment & Plan Assessment & Plan (1) CKD stage 3a, GFR 45-59 ml/min: Code(s): N18.31 - Chronic kidney disease, stage 3a Category: Medical (2) HTN (hypertension): Code(s): I10 - Essential (primary) hypertension Category: Medical Qualifiers: Hypertension type: unspecified Qualified Code(s): I10 - Essential (primary) hypertension Plan Gabriele has CKD stage 3 from vascular disease. He had Doppler of renal arteries in the past which did not show any critical narrowing. His urine output is good. His serum creatinine is stable. His blood pressure is at goal and his heart rate is well controlled. He has not had any gout attacks and can maintain on allopurinol 200 mg daily he needs to keep up with adequate hydration and should avoid nonsteroidal anti-inflammatories. I did not make any medication changes today. All questions answered. Follow-up appointment given. Coding Level of Care Code Est Pt Level 4 (96887) Diagnoses CKD stage 3a, GFR 45-59 ml/min N18.31 HTN (hypertension) I10 Hypertension type: unspecified
== END 2024-02-08 10:45 | disposition home or self-care (01) ==
PROVIDERS: PCP Internal Medicine; Visit Provider Internal Medicine Nephrology
DX: N18.31 Chronic kidney disease, stage 3a (principal); I10 Essential (primary) hypertension
CPT/HCPCS: 99214

== ENCOUNTER → 2024-02-08 10:22 | Outpatient (BNVA) | payer MEDICARE, SELFPAY | PROVIDERS: PCP Internal Medicine; Visit Provider Internal Medicine Nephrology | DX: I12.9 Hypertensive chronic kidney disease with stage 1 through stage 4 chronic kidney disease, or unspecified chronic kidney disease (principal); N18.31 Chronic kidney disease, stage 3a | CPT/HCPCS: 99212 ==

== ENCOUNTER 2024-02-17 12:44 | Outpatient (AMB) | payer MEDICARE, SELFPAY ==
[2024-02-17 12:51] VITALS: BP 138/80; PULSE 55; O2SAT 99; BMI 23.9
--- NOTE | 2024-02-17 12:51 | A.OFFPC_ITS ---
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 Allergies lisinopril Allergy (Unknown, Verified 02/17/24 12:52) sob Lbuhhmo-EQT-HqW Reductase Inhibitor [Guhbbdc-Nem-Nqw Reductase Inhibitor] Allergy (Unknown, Verified 02/17/24 12:52) myalgia prednisone Allergy (Verified 02/17/24 12:52) Unknown mold and dustmites Allergy (Unknown, Uncoded 02/17/24 12:52) unknown Tobacco use date assessed: 02/17/24 Fall risk assessment: No Falls in past year Last assessed Fall Risk: 02/17/24 Dental Screening Dental Screen Date: 02/17/24 Did you have a dental visit in the last 12 months?: Yes Did you have a dental problem in the last 6 months where you did not have access to dental care?: No Was dental information given to patient?: Patient has dentist HPI a VINNY middleton HPI Details 73-year-old male with multiple medical p roblewa history of CVA atrial fibrillation cardiomyopathy hypertension hypercholesterolemia diabetes mellitus hypothyroidism with chronic kidney disease coming in for follow-up. Last seen in 08/10/2023. Patient's last colonoscopy was done in 2019. Had tubular adenoma. Review of the notes follows up with Nephrology 02/08/2024 diagnosis of chronic kidney disease stage IIIA hypertension secondary to vascular. Patient did see Cardiology also 01/10/2024 advised increase in metoprolol to 100 mg twice a day to do atrial fibrillation not adequately controlled. On anticoagulation. Advised to stop amlodipine. Echocardiogram done in August 2023Normal LV ejection fraction 55-60% 2. Mild biatrial enlargement 3. Mild mitral regurgitation 4. Normal RV systolic pressure 5. No pericardial effusion [facility] Medical History Elevated blood sugar Pericardial effusion Type 2 diabetes mellitus with hyperglycemia Vitamin D deficiency Fatty liver Asthma Erectile dysfunction Esophagitis Gout Hypothyroidism HTN (hypertension) CKD (chronic kidney disease) Chronic atrial fibrillation RBBB Orthostatic hypotension Surgical History History of thumb surgery Family History Father CAD (coronary artery disease) Mother Stroke Family/Other Stroke Other No family history of cancer Social History Household Members: Spouse Housing: House Are you a primary healthcare management consultant to a significant other at home: No Do you presently have visiting nurse or other home services: No Alcohol intake: current Patient Tobacco Use Status: Never used Tobacco e-Cigarette/Vaping Use: Never Used Second Hand Smoke Exposure: No service: No Current occupational status: retired Cognitive needs: No Hearing needs: Yes Vision needs: Yes (glasses) Questionnaire PHQ-9 Over the last 2 weeks, how often have you been bothered by any of the following problems? 1. Little interest or pleasure in doing things: not at all 2. Feeling down, depressed, or hopeless: not at all 3. Trouble falling or staying asleep, or sleeping too much: not at all 4. Feeling tired or having little energy: not at all 5. Poor appetite or overeating: not at all 6. Feeling bad about yourself - or that you are a failure or have let yourself or your family down: not at all 7. Trouble concentrating on things, such as reading the newspaper or watching television: not at all 8. Moving or speaking so slowly that other people could have noticed. Or the opposite - being so fidgety or restless that you have been moving around a lot more than usual: not at all 9. Thoughts that you would be better off or of hurting yourself in some way: not at all Total score: 0 Depression Screening Interpretation: Negative Depression Screening Done: Yes Source: Developed by Drs. Adilson Judd, Frances Feliciano, Tye Bellamy and colleagues, with an educational mona from [employer]. Thrive Questionnaire Date Thrive assessed: 02/17/24 I am a: Patient What is your living situation today?: I have a steady place to live Within the past 12 months, did the food you bought not last and you didn't have the money to get more?: Never true Within the past 12 months, did you worry whether your food would run out before you got money to buy more?: Never true Do you have trouble paying for medicines?: No Do you have trouble getting transportation to medical appointments?: No Do you have trouble paying your heating and electricity bill?: No Do you have trouble taking care of your child, family member or friend?: No Do you have trouble with day-to-day activities such as bathing, preparing meals, shopping, managing finances, etc.?: No Are you currently unemployed and looking for a job?: No Are you interested in more education?: No Please select the resources that you would like help with: None THRIVE Score: 0 AUDIT C Alcohol Use Questionnaire (AUDIT-C) 1. How often do you have a drink containing alcohol?: 2-3 times a week 2. How many drinks containing alcohol do you have on a typical day when you are drinking?: 1 or 2 3. How often do you have six or more drinks on one occasion?: Never Total Score: 3 GINO-7 AMB Questionnaire GINO-7 Date GINO - 7 assessed: 02/17/24 Feeling nervous, anxious, or on edge: 0 = Not at all Not being able to stop or control worryin = Not at all Worrying too much about different things: 0 = Not at all Trouble relaxin = Not at all Being so restless that it is hard to sit still: 0 = Not at all Becoming easily annoyed or irritable: 0 = Not at all Feeling afraid as if something awful might happen: 0 = Not at all Total GINO-7 score (0-4 normal; 5-9 mild; 10-14 moderate; 15-21 severe): 0 Source: Developed by Drs. Adilson Judd, Frances Feliciano, Tye Bellamy and colleagues, with an educational mona from [employer]. Physical exam (Primary Care) Vital Signs: Last Vital Signs Pulse 55 02/17/24 12:51 BP 138/80 02/17/24 12:51 Pulse Ox 99 02/17/24 12:51 Oxygen Delivery Method Room Air 02/17/24 12:51 BMI result Body Mass Index 23.9 Tobacco/Smoking Status: Tobacco use Status Tobacco use date assessed 02/17/24 02/17/24 12:52 Patient Tobacco Use Status Never used Tobacco 02/17/24 12:52 e-Cigarette/Vaping Use Never Used 02/17/24 12:52 PHQ-9: PHQ-9 Score PHQ-9: Total score 0 02/17/24 13:04 Depression Screening Interpretation: Negative Thrive Assessment: Date of Thrive Assessment Date Thrive assessed 02/17/24 02/17/24 12:52 Const General: alert; No acute distress Eyes Conjunctivae: conjunctivae normal Resp Auscultation: clear to auscultation bilaterally Cardio Rate: regular rate Rhythm: regular rhythm GI Inspection: Yes normal to inspection Extrem General: Yes normal to inspection and No edema Results AMB Hemoglobin A1c AMB Hemoglobin A1c 6.7 % Last Edit by JOE Molina on 02/17/24 13:05 Results Reviewed Results Reviewed: Laboratory Last Values Hgb A1c (Clinic) 6.7 % (4.0-6.0) H 02/17/24 13:03 Assessment and Plan Assessment & Plan (1) Type 2 diabetes mellitus with hyperglycemia: 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 Hemoglobin A1c goal of less than 7.0 diet controlled (2) CKD stage 3a, GFR 45-59 ml/min: Code(s): N18.31 - Chronic kidney disease, stage 3a Plan: Keep well hydrated avoid NSAIDs patient follows up with Nephrology keep blood pressure under better control. (3) Hypothyroidism: Code(s): E03.9 - Hypothyroidism, unspecified Plan: Continue with thyroid medication (4) HTN (hypertension): Code(s): I10 - Essential (primary) hypertension Qualifiers: Hypertension type: unspecified Qualified Code(s): I10 - Essential (primary) hypertension Plan: Continue with blood pressure medication. Decrease salt intake and exercise patient has met with Cardiology increase metoprolol 200 mg twice a day discontinued amlodipine (5) Hypercholesterolemia: Code(s): E78.00 - Pure hypercholesterolemia, unspecified Plan: Avoid fried foods, chicken skin, eggs, butter margarine, pastries and meat. Be it pork or beef they have a lot of cholesterol LDL goal of less than 70. Patient not on cholesterol medication (6) Cardiomyopathy: Comment: August 2022 Normal LV ejection fraction 55-60% 2. Mild biatrial enlargement 3. Mild mitral regurgitation 4. Normal RV systolic pressure 5. No pericardial effusion Code(s): I42.9 - Cardiomyopathy, unspecified Plan: Continue to follow up with Cardiology. (7) Chronic atrial fibrillation: Code(s): I48.20 - Chronic atrial fibrillation, unspecified Plan: Continue with anticoagulation and metoprolol increased. (8) GINO (generalized anxiety disorder): Code(s): F41.1 - Generalized anxiety disorder Plan: Continue with present medication (9) Hearing deficit: Code(s): H91.90 - Unspecified hearing loss, unspecified ear Plan: Referral for Hearing test done Orders: Orders Complete Blood Count Auto Diff 6 Months E11.65 - Type 2 diabetes mellitus with hyperglycemia Comprehensive Met. Panel 6 Months E11.65 - Type 2 diabetes mellitus with hyperglycemia Microalbumin, Random (w Creat) 6 Months E11.65 - Type 2 diabetes mellitus with hyperglycemia Creatinine Urine 6 Months E11.65 - Type 2 diabetes mellitus with hyperglycemia IRON PROFILE 6 Months E11.65 - Type 2 diabetes mellitus with hyperglycemia AMB Hemoglobin A1c Today E11.65 - Type 2 diabetes mellitus with hyperglycemia Free T4 (Free Thyroxine) 6 Months E11.65 - Type 2 diabetes mellitus with hyperglycemia Thyroid Stimulating Hormone 6 Months E11.65 - Type 2 diabetes mellitus with hyperglycemia Lipid Panel 6 Months E11.65 - Type 2 diabetes mellitus with hyperglycemia, E78.00 - Pure hypercholesterolemia, unspecified Vitamin B12 and Folate 6 Months E11.65 - Type 2 diabetes mellitus with hyperglycemia Hemoglobin A1c 6 Months E11.65 - Type 2 diabetes mellitus with hyperglycemia Ferritin 6 Months E11.65 - Type 2 diabetes mellitus with hyperglycemia Reticulocyte Count 6 Months E11.65 - Type 2 diabetes mellitus with hyperglycemia Referrals Speech and Hearing Referral H91.90 - Unspecified hearing loss, unspecified ear Patient Instructions: Continue with present medication Coding Level of Care Code Est Pt Level 4 (19908) Complex EM visit Add On G2211 Diagnoses Type 2 diabetes mellitus with hyperglycemia E11.65 CKD stage 3a, GFR 45-59 ml/min N18.31 Hypothyroidism E03.9 HTN (hypertension) I10 Hypertension type: unspecified Hypercholesterolemia E78.00 Cardiomyopathy I42.9 Chronic atrial fibrillation I48.20 GINO (generalized anxiety disorder) F41.1 Hearing deficit H91.90
== END 2024-02-17 13:31 | disposition home or self-care (01) ==
PROVIDERS: PCP Internal Medicine; Visit Provider Internal Medicine
DX: I12.9 Hypertensive chronic kidney disease with stage 1 through stage 4 chronic kidney disease, or unspecified chronic kidney disease (principal); E11.65 Type 2 diabetes mellitus with hyperglycemia; N18.31 Chronic kidney disease, stage 3a; I42.9 Cardiomyopathy, unspecified; I48.20 Chronic atrial fibrillation, unspecified; E03.9 Hypothyroidism, unspecified; E78.00 Pure hypercholesterolemia, unspecified; F41.1 Generalized anxiety disorder; H91.93 Unspecified hearing loss, bilateral
CPT/HCPCS: 83036; 99214; G2211

== ENCOUNTER 2024-03-02 08:12 | Outpatient (REF) | payer MEDICARE, SELFPAY | END 2024-03-02 08:13 | disposition home or self-care (01) | LOC: HO.SH 08:12 | PROVIDERS: Visit Provider Internal Medicine | DX: Z01.118 Encounter for examination of ears and hearing with other abnormal findings (principal); H90.3 Sensorineural hearing loss, bilateral | CPT/HCPCS: 92557 ==

== ENCOUNTER 2024-07-17 09:47 | Outpatient (AMB) | payer MEDICARE, SELFPAY ==
[2024-07-17 09:49] VITALS: BP 120/74; PULSE 55; BMI 23.5
--- NOTE | 2024-07-17 09:49 | A.OFFVIS_ITS ---
Vital Signs 07/17/24 09:49 Height 5 ft 6 in Weight 145 lb 8.081 oz BMI 23.5 BP 120/74 Blood Pressure Location Lt brachial Position Sitting Pulse 55 Intake Visit Reasons: 6 mth f/up Intake Note: 6 month follow-up feeling good Data Entry Manager Required: No Alkylation Operator: Alkylation Operator Present Accompanied by: Spouse Allergies lisinopril Allergy (Unknown, Verified 02/17/24 12:52) sob Xhaktie-SUR-JsC Reductase Inhibitor [Ktmfvcd-Snc-Tde Reductase Inhibitor] Allergy (Unknown, Verified 02/17/24 12:52) myalgia prednisone Allergy (Verified 02/17/24 12:52) Unknown mold and dustmites Allergy (Unknown, Uncoded 02/17/24 12:52) unknown Medication List - Last Reconciled 07/17/24 by Chas Gonzalez MD allopurinol 200 mg (2 x 100 mg) PO DAILY 90 days apixaban (Eliquis) 5 mg PO BID ezetimibe (Zetia) 10 mg PO DAILY fluoxetine 10 mg PO DAILY fluticasone propionate 50 mcg/actuation 1 spray intranasal BID PRN levothyroxine 50 mcg PO QAM 90 days metoprolol succinate ER (Toprol XL) 100 mg PO BID omeprazole 20 mg PO DAILY@0630 psyllium husk (Metamucil) 0.8 grams PO DAILY HPI Comments Details: Gabriele comes for follow-up. He has been doing well from cardiac perspective. He has not had any new cardiac symptoms. No falls. Denies any orthostatic lightheadedness or syncope. No shortness of breath, orthopnea, PND. No prolonged palpitation irregular heartbeat. Takes all his medications. No new neurologic symptoms or bleeding issues. COUNT INCLUDES THE [facility] Medical History Elevated blood sugar Pericardial effusion Type 2 diabetes mellitus with hyperglycemia Vitamin D deficiency Fatty liver Asthma Erectile dysfunction Esophagitis Gout Hypothyroidism HTN (hypertension) CKD (chronic kidney disease) Chronic atrial fibrillation RBBB Orthostatic hypotension Surgical History History of thumb surgery Family History Father CAD (coronary artery disease) Mother Stroke Family/Other Stroke Other No family history of cancer Social History Household Members: Spouse Housing: House Are you a primary home care manager rn to a significant other at home: No Do you presently have visiting nurse or other home services: No Alcohol intake: current Patient Tobacco Use Status: Never used Tobacco e-Cigarette/Vaping Use: Never Used Second Hand Smoke Exposure: No service: No Current occupational status: retired Cognitive needs: No Hearing needs: Yes Vision needs: Yes (glasses) Review of Systems Const Denies chills, Denies fatigue, Denies fever(s), Denies frequent falls, Denies weakness, Denies weight gain and Denies weight loss ENT Denies dizziness Card Denies chest pain, Denies leg edema, Denies lightheadedness, Denies palpitations, Denies dyspnea, Denies dyspnea on exertion, Denies orthopnea and Denies other (loss of consciousness) Resp Denies cough, Denies dyspnea and Denies dyspnea on exertion GI Denies hematochezia and Denies change in stool character Musc Denies abnormal gait, Denies muscle weakness, Denies numbness, Denies radiating pain into limb and Denies tingling Neuro Denies abnormal gait, Denies dizziness, Denies frequent falls, Denies numbness, Denies tingling and Denies weakness Endo Denies fatigue and Denies palpitations Physical Exam Vital Signs: Last Vital Signs Pulse 55 07/17/24 09:49 BP 120/74 07/17/24 09:49 BMI result Body Mass Index 23.5 Const General: cooperative, comfortable, no acute distress, alert and awake Nutritional Appearance: average body habitus Orientation/consciousness: patient oriented x3 Neck Neck: Yes trachea midline, Yes supple and Yes no JVD Chest Chest palpation & inspection: normal inspection of the chest Resp Effort & Inspection: normal respiratory effort Auscultation: clear to auscultation bilaterally Cardio Jugular venous distension: no JVD Palpation: normal PMI Rate: tachycardic Rhythm: abnormal rhythm irregularly irregular Heart sounds: S1 normal heart sound present, S2 normal heart sound present, no click, no gallops, no murmurs and no rubs GI Auscultation: normal bowel sounds Skin General skin exam: no rashes or lesions noted Neuro General: patient oriented x3 and no focal motor deficits Extrem General: Yes no clubbing, cyanosis or edema Assessment & Plan Assessment & Plan (1) Chronic atrial fibrillation: Code(s): I48.20 - Chronic atrial fibrillation, unspecified Category: Medical Plan: Chronic atrial fibrillation has failed rhythm control approach with prior CVA. Clinically doing well at this point time. Continue full oral anticoagulation, uninterrupted, currently on Eliquis 5 mg b.i.d.. Quarterly to 6 monthly renal function test should be pursued. Continue metoprolol therapy for rate control. He understands management well. Follow-up echocardiogram in 1 year. (2) Orthostatic hypotension: Code(s): I95.1 - Orthostatic hypotension Category: Medical Plan: Orthostatic hypotension without any obvious clinical recurrence. This is improved since increase fluid intake. Blood pressure remained stable at home being measured by his . Continue current metoprolol dose both for neurohormonal modulation as well as rate control above. To monitor blood pres sure at home and maintain a log. Orthostatic precautions were discussed. Will follow up in the clinic in 1 year's time, sooner p.r.n.. Thank you for allowing me to partake in his care Orders: Orders CA echo transthoracic complete 1 Year I48.20 - Chronic atrial fibrillation, unspecified Coding Level of Care Code Est Pt Level 4 (17660) Complex EM visit Add On G2211 Diagnoses Chronic atrial fibrillation I48.20 Orthostatic hypotension I95.1
== END 2024-07-17 10:11 | disposition home or self-care (01) ==
PROVIDERS: PCP Internal Medicine; Visit Provider Internal Medicine Cardiovascular Disease
DX: I48.20 Chronic atrial fibrillation, unspecified (principal); I95.1 Orthostatic hypotension
CPT/HCPCS: 99214; G2211

== ENCOUNTER → 2024-07-17 09:47 | Outpatient (BNVA) | payer MEDICARE, SELFPAY | PROVIDERS: PCP Internal Medicine; Visit Provider Internal Medicine Cardiovascular Disease | DX: I48.20 Chronic atrial fibrillation, unspecified (principal); I95.1 Orthostatic hypotension | CPT/HCPCS: 99212 ==

== ENCOUNTER 2024-08-03 08:02 | Outpatient (REF) | payer MEDICARE, SELFPAY ==
[2024-08-03 08:19] LABS: MANUAL DIFF FLAG NO
[2024-08-03 09:05] LABS: Basophils Absolute Auto 0.1 X10*3/uL (0.0-0.2); Basophils Percent Auto 0.3 % (0-2); Eosinophils Absolute Auto 0.1 X10*3/uL (0.0-0.4); Eosinophils Percent Auto 0.6 % (0-4); Hematocrit 43.1 % (42.0-52.0); Hemoglobin 15.6 g/dl (14.0-18.0); Imm Gran Abs Auto 0.09 X10*3/uL (0.00-0.03); Imm Gran Pct Auto 0.6 % (0.0-0.4); Immature Retic Fraction 11.7 % (2.3-13.4); Lymphocytes Absolute Auto 0.9 X10*3/uL (1.2-4.9); Lymphocytes Percent Auto 6.1 % (20-40); Mean Corpuscular HGB Conc 36.2 g/dl (31.0-36.0); Mean Corpuscular Volume 93.9 fL (80.0-98.0); Monocytes Absolute Auto 0.7 X10*3/uL (0.1-1.2); Monocytes Percent Auto 4.8 % (2-11); Neutrophils Absolute Auto 12.8 x10*3/uL (2.0-8.3); Neutrophils Percent Auto 87.6 % (45-73); Platelet Count 183 X10*3/uL (160-400); Red Blood Count 4.59 X10*6/uL (4.60-5.80); Red Cell Distribution Width 13.6 % (11.0-16.0); Retic HGB Equivalent 38.3 pg (30.0-35.0); Reticulocyte Percent 2.5 % (0.5-1.8); Reticulocytes Absolute 0.116 X10*6/uL (0.026-0.095); White Blood Count 14.6 X10*3/uL (4.8-10.8)
[2024-08-03 09:11] LABS: Estimated Average Glucose 126 mg/dL; Total Hemoglobin (HGBA1C) 3851.9803 umol/L
[2024-08-03 09:29] LABS: B Type Natriuretic Peptide 211 pg/mL (<100)
[2024-08-03 09:36] LABS: Alanine Aminotransferase 35 U/L (0-40); Albumin Level 4.3 g/dL (3.5-5.0); Alkaline Phosphatase 66 U/L (39-117); Anion Gap 13 (12-20); Aspartate Amino Transferase 25 U/L (5-37); Blood Urea Nitrogen 16 mg/dL (9-16); Calcium 9.5 mg/dL (8.4-10.2); Carbon Dioxide 27 mmol/L (22-29); Chloride 100 mmol/L (96-108); Cholesterol 183 mg/dL (<200); Estimated Glomerular Filt Rate 58; Glucose Random 186 mg/dL (60-115); HDL Cholesterol 50 mg/dL (>40); Iron 87 mcg/dL (45-160); LDL Cholesterol Calculated 97 mg/dL (<100); Magnesium 1.6 mg/dL (1.6-2.6); Percent Iron Saturation 33 % (15-50); Potassium 4.5 mmol/L (3.3-5.1); Sodium 135 mmol/L (135-145); Total Iron Binding Capacity 261 mcg/dL (228-428); Total Protein 7.9 g/dL (6.5-8.0); Triglycerides 184 mg/dL (<150); Unsaturated Iron Binding 174 ug/dL
[2024-08-03 09:47] LABS: Ferritin 354 ng/mL (20-250); Free T4 (Free Thyroxine) 1.16 ng/dL (0.71-1.85)
[2024-08-03 09:50] LABS: Microalbum/Creatinine Ratio Ur 150.3 ug/mg cr (<30)
[2024-08-03 09:52] LABS: Thyroid Stimulating Hormone 3.64 uIU/mL (0.32-4.0)
[2024-08-03 09:53] LABS: Creatinine Urine 80.92 mg/dL; Protein/Creatinine Ratio, Ur 0.25 (<0.2); Total Protein Urine Random 20 mg/dL (<12)
[2024-08-03 09:58] LABS: Folate 7.9 ng/mL (> or = 4.0); Vitamin B12 345 pg/mL (200-900)
== END 2024-08-03 08:03 | disposition home or self-care (01) ==
LOC: HO.LAB 08:02
PROVIDERS: Absent Provider Internal Medicine Nephrology; PCP Internal Medicine; Visit Provider Internal Medicine
DX: N18.31 Chronic kidney disease, stage 3a (principal); I48.20 Chronic atrial fibrillation, unspecified; E78.00 Pure hypercholesterolemia, unspecified; E11.65 Type 2 diabetes mellitus with hyperglycemia; E11.22 Type 2 diabetes mellitus with diabetic chronic kidney disease
CPT/HCPCS: 36415; 80053; 80061; 82043; 82570; 82607; 82728; 82746; 83036; 83540; 83735; 83880; 84156; 84439; 84443; 85025; 85045

== ENCOUNTER 2024-08-08 09:28 | Outpatient (AMB) | payer MEDICARE, SELFPAY ==
--- NOTE | 2024-08-08 09:35 | HO.NEPHOV_ITS ---
Vital Signs 08/08/24 09:37 Height 5 ft 6 in Weight 149 lb 6 oz BMI 24.1 BP 130/70 Blood Pressure Location Rt brachial Position Sitting Pulse 55 Pulse Source Pulse Oximeter Pulse Oximetry (%) 98 Oxygen Delivery Method Room Air Intake Visit Reasons: CKD-LVM Technical Support Specialist Required: No Accompanied by: Spouse Allergies lisinopril Allergy (Unknown, Verified 08/08/24 09:36) sob Znrwhvq-XBL-BwW Reductase Inhibitor [Gjbiojd-Cka-Jot Reductase Inhibitor] Allergy (Unknown, Verified 08/08/24 09:36) myalgia prednisone Allergy (Verified 08/08/24 09:36) Unknown mold and dustmites Allergy (Unknown, Uncoded 02/17/24 12:52) unknown HPI Comments Details: Gabriele was seen in follow-up of his chronic kidney disease and hypertension. He was accompanied by his during this office visit. He has history of CVA in the past without much residual deficits. His blood sugars and blood pressures are well controlled. He does not take any jkaw-xow-odekqzl medications. His heart rate is well controlled. He has not on amiodarone anymore. He denies chest pain, shortness of breath, pedal edema, nausea, vomiting, diarrhea or hematuria. He denied orthostatic symptoms. He maintain good hydration and avoid nonsteroidal anti-inflammatories [facility] Medical History Elevated blood sugar Pericardial effusion Type 2 diabetes mellitus with hyperglycemia Vitamin D deficiency Fatty liver Asthma Erectile dysfunction Esophagitis Gout Hypothyroidism HTN (hypertension) CKD (chronic kidney disease) Chronic atrial fibrillation RBBB Orthostatic hypotension Surgical History History of thumb surgery Family History Father CAD (coronary artery disease) Mother Stroke Family/Other Stroke Other No family history of cancer Social History Household Members: Spouse Housing: House Are you a primary animal caretaker to a significant other at home: No Do you presently have visiting nurse or other home services: No Alcohol intake: current Patient Tobacco Use Status: Never used Tobacco e-Cigarette/Vaping Use: Never Used Second Hand Smoke Exposure: No service: No Current occupational status: retired Cognitive needs: No Hearing needs: Yes Vision needs: Yes (glasses) Review of Systems Const All systems reviewed & are unremarkable except as noted in HPI and below Physical Exam Vital Signs: Last Vital Signs Pulse 55 08/08/24 09:37 BP 130/70 08/08/24 09:37 Pulse Ox 98 08/08/24 09:37 Oxygen Delivery Method Room Air 08/08/24 09:37 BMI result Body Mass Index 24.1 Const General: comfortable and no acute distress Orientation/consciousness: patient oriented x3 HEENT Head: Yes normocephalic Mouth: Normal oral and palatal mucosa present Eyes EOM: EOMs intact bilaterally Neck Neck: Yes supple Resp Auscultation: clear to auscultation bilaterally Cardio Jugular venous distension: no JVD Rate: regular rate GI Palpation (GI): Soft to palpation Auscultation: normal bowel sounds General: Yes no CVA tenderness Back/Spine/Pelvis Back: no CVA tenderness Skin General skin exam: no rashes or lesions noted Neuro General: patient oriented x3 and moves all extremities Extrem General: Yes no pedal edema Results Reviewed Nephrology Results: Hgb 15.6 g/dl (14.0-18.0) 08/03/24 WBC 14.6 X10*3/uL (4.8-10.8) H 08/03/24 Plt Count 183 X10*3/uL (160-400) 08/03/24 Sodium 135 mmol/L (135-145) 08/03/24 Potassium 4.5 mmol/L (3.3-5.1) 08/03/24 Chloride 100 mmol/L (96-108) 08/03/24 Carbon Dioxide 27 mmol/L (22-29) 08/03/24 BUN 16 mg/dL (9-16) 08/03/24 Creatinine 1.22 mg/dL (0.5-1.4) 08/03/24 Calcium 9.5 mg/dL (8.4-10.2) 08/03/24 Urine Creatinine 80.92 mg/dL 08/03/24 Protein/Creatinin Ratio 0.25 (<0.2) H 08/03/24 Assessment & Plan Assessment & Plan (1) CKD stage 3a, GFR 45-59 ml/min: Code(s): N18.31 - Chronic kidney disease, stage 3a Category: Medical (2) Type 2 diabetes mellitus with hyperglycemia: Code(s): E11.65 - Type 2 diabetes mellitus with hyperglycemia Category: Medical Qualifiers: Diabetes mellitus penitentiary insulin use: without penitentiary use Qualified Code(s): E11.65 - Type 2 diabetes mellitus with hyperglycemia (3) HTN (hypertension): Code(s): I10 - Essential (primary) hypertension Category: Medical Qualifiers: Hypertension type: unspecified Qualified Code(s): I10 - Essential (primary) hypertension Plan Gabriele has CKD stage 3 from vascular disease. He had Doppler of renal arteries in the past which did not show any critical narrowing. His urine output is good. His serum creatinine is stable. His blood pressure is at goal and his heart rate is well controlled. He has not had any gout attacks and can maintain on allopurinol 200 mg daily he needs to keep up with adequate hydration and should avoid nonsteroidal anti-inflammatories. He is a great candidate for Jardiance 10 mg daily. I did not make any medication changes today. All questions answered. Follow-up appointment given Orders: Orders Creatinine 8 Months E11.65 - Type 2 diabetes mellitus with hyperglycemia, I10 - Essential (primary) hypertension, N18.31 - Chronic kidney disease, stage 3a Blood Urea Nitrogen 8 Months E11.65 - Type 2 diabetes mellitus with hyperglycemia, I10 - Essential (primary) hypertension, N18.31 - Chronic kidney disease, stage 3a Electrolytes 8 Months E11.65 - Type 2 diabetes mellitus with hyperglycemia, I10 - Essential (primary) hypertension, N18.31 - Chronic kidney disease, stage 3a Coding Level of Care Code Est Pt Level 4 (33011) Diagnoses CKD stage 3a, GFR 45-59 ml/min N18.31 Type 2 diabetes mellitus with hyperglycemia, without long-term current use of insulin E11.65 Diabetes mellitus penitentiary insulin use: without penitentiary use HTN (hypertension) I10 Hypertension type: unspecified
[2024-08-08 09:37] VITALS: BP 130/70; PULSE 55; O2SAT 98; BMI 24.1
== END 2024-08-08 10:03 | disposition home or self-care (01) ==
PROVIDERS: PCP Internal Medicine; Visit Provider Internal Medicine Nephrology
DX: I12.9 Hypertensive chronic kidney disease with stage 1 through stage 4 chronic kidney disease, or unspecified chronic kidney disease (principal); E11.22 Type 2 diabetes mellitus with diabetic chronic kidney disease; N18.31 Chronic kidney disease, stage 3a
CPT/HCPCS: 99214

== ENCOUNTER → 2024-08-08 09:28 | Outpatient (BNVA) | payer MEDICARE, SELFPAY | PROVIDERS: PCP Internal Medicine; Visit Provider Internal Medicine Nephrology | DX: E11.22 Type 2 diabetes mellitus with diabetic chronic kidney disease (principal); I12.9 Hypertensive chronic kidney disease with stage 1 through stage 4 chronic kidney disease, or unspecified chronic kidney disease; N18.31 Chronic kidney disease, stage 3a; E11.65 Type 2 diabetes mellitus with hyperglycemia | CPT/HCPCS: 99212 ==

== ENCOUNTER 2024-08-20 12:47 | Outpatient (AMB) | payer MEDICARE, SELFPAY ==
[2024-08-20 12:53] VITALS: BP 112/64; PULSE 76; O2SAT 97; BMI 24.4
--- NOTE | 2024-08-20 12:53 | A.OFFPC_ITS ---
Vital Signs 08/20/24 12:53 Height 5 ft 6 in Weight 151 lb 2 oz BMI 24.4 BP 112/64 Blood Pressure Location Rt brachial Position Sitting Pulse 76 Pulse Source Pulse Oximeter Pulse Oximetry (%) 97 Oxygen Delivery Method Room Air Intake Visit Reasons: 6mth f/u - see comments Allergies lisinopril Allergy (Unknown, Verified 08/20/24 12:57) sob Cdamelh-SEJ-UsV Reductase Inhibitor [Powoqhm-Otk-Oct Reductase Inhibitor] Allergy (Unknown, Verified 08/20/24 12:57) myalgia prednisone Allergy (Verified 08/20/24 12:57) Unknown mold and dustmites Allergy (Unknown, Uncoded 08/20/24 12:57) unknown Tobacco use date assessed: 08/20/24 Fall risk assessment: No Falls in past year Last assessed Fall Risk: 08/20/24 Dental Screening Dental Screen Date: 08/20/24 Did you have a dental visit in the last 12 months?: Yes Did you have a dental problem in the last 6 months where you did not have access to dental care?: No Was dental information given to patient?: Patient has dentist HPI 6mth f/u - see comments HPI Details The patient is a 74-year-old male presenting with chronic disease follow-up and wellness examination. The patient has essential hypertension that is being actively managed and is currently stable. He has a known diagnosis of chronic kidney disease, and regular monitoring of kidney function has shown stability, with creatinine levels noted to be stable at 1.22 mg/dL. The patient also has hypercholesterolemia with low-density lipoprotein (LDL) cholesterol currently at 97 mg/dL. He is unable to take statins and manages cholesterol partly through diet. The patient has type 2 diabetes mellitus and recent laboratory tests show blood glucose levels at 186 mg/dL and hemoglobin A1c at 6.7%. The blood sugar levels indicate a need for better control. There is noted leukocytosis with white blood cell counts elevated at 14.6, though this finding has been consistent without significant changes over the past year. The patient is not currently anemic, with his blood counts within normal limits. He maintains a healthy lifestyle by eating normal, healthy foods, and remains active through regular walking. However, cry-exercise or any strenuous activity is limited. The patient has taken his flu shot and is considering other vaccines, such as the tetanus vaccine. The patient's primary care maintenance also includes routine monitoring of his vitals and laboratory parameters. [facility] Medical History Elevated blood sugar Pericardial effusion Type 2 diabetes mellitus with hyperglycemia Vitamin D deficiency Fatty liver Asthma Erectile dysfunction Esophagitis Gout Hypothyroidism HTN (hypertension) CKD (chronic kidney disease) Chronic atrial fibrillation RBBB Orthostatic hypotension Surgical History History of thumb surgery Family History Father CAD (coronary artery disease) Mother Stroke Family/Other Stroke Other No family history of cancer Social History Household Members: Spouse Housing: House Are you a primary youth care specialist to a significant other at home: No Do you presently have visiting nurse or other home services: No Alcohol intake: current Patient Tobacco Use Status: Never used Tobacco e-Cigarette/Vaping Use: Never Used Second Hand Smoke Exposure: No service: No Current occupational status: retired Cognitive needs: No Hearing needs: Yes Vision needs: Yes (glasses) Questionnaire PHQ-9 Over the last 2 weeks, how often have you been bothered by any of the following problems? 1. Little interest or pleasure in doing things: not at all 2. Feeling down, depressed, or hopeless: not at all 3. Trouble falling or staying asleep, or sleeping too much: not at all 4. Feeling tired or having little energy: not at all 5. Poor appetite or overeating: not at all 6. Feeling bad about yourself - or that you are a failure or have let yourself or your family down: not at all 7. Trouble concentrating on things, such as reading the newspaper or watching television: not at all 8. Moving or speaking so slowly that other people could have noticed. Or the opposite - being so fidgety or restless that you have been moving around a lot more than usual: not at all 9. Thoughts that you would be better off or of hurting yourself in some way: not at all Total score: 0 Depression Screening Interpretation: Negative Depression Screening Done: Yes Source: Developed by Drs. Adilson Judd, Frances Feliciano, Tye Bellamy and colleagues, with an educational mona from [employer]. Thrive Questionnaire Date Thrive assessed: 08/20/24 I am a: Patient What is your living situation today?: I have a steady place to live Within the past 12 months, did the food you bought not last and you didn't have the money to get more?: Never true Within the past 12 months, did you worry whether your food would run out before you got money to buy more?: Never true Do you have trouble paying for medicines?: No Do you have trouble getting transportation to medical appointments?: No Do you have trouble paying your heating and electricity bill?: No Do you have trouble taking care of your child, family member or friend?: No Do you have trouble with day-to-day activities such as bathing, preparing meals, shopping, managing finances, etc.?: No Are you currently unemployed and looking for a job?: No Are you interested in more education?: No Please select the resources that you would like help with: None THRIVE Score: 0 AUDIT C Alcohol Use Questionnaire (AUDIT-C) 1. How often do you have a drink containing alcohol?: 2-3 times a week 2. How many drinks containing alcohol do you have on a typical day when you are drinking?: 1 or 2 3. How often do you have six or more drinks on one occasion?: Never Total Score: 3 GINO-7 AMB Questionnaire GINO-7 Date GINO - 7 assessed: 08/20/24 Feeling nervous, anxious, or on edge: 0 = Not at all Not being able to stop or control worryin = Not at all Worrying too much about different things: 0 = Not at all Trouble relaxin = Not at all Being so restless that it is hard to sit still: 0 = Not at all Becoming easily annoyed or irritable: 0 = Not at all Feeling afraid as if something awful might happen: 0 = Not at all Total GINO-7 score (0-4 normal; 5-9 mild; 10-14 moderate; 15-21 severe): 0 Source: Developed by Drs. Adilson Judd, Frances Feliciano, Tye Bellamy and colleagues, with an educational mona from [employer]. Physical exam (Primary Care) Vital Signs: Last Vital Signs Pulse 76 08/20/24 12:53 BP 112/64 08/20/24 12:53 Pulse Ox 97 08/20/24 12:53 Oxygen Delivery Method Room Air 08/20/24 12:53 BMI result Body Mass Index 24.4 Tobacco/Smoking Status: Tobacco use Status Tobacco use date assessed 08/20/24 08/20/24 12:58 Patient Tobacco Use Status Never used Tobacco 08/20/24 12:58 e-Cigarette/Vaping Use Never Used 08/20/24 12:58 PHQ-9: PHQ-9 Score PHQ-9: Total score 0 08/20/24 13:17 Depression Screening Interpretation: Negative Thrive Assessment: Date of Thrive Assessment Date Thrive assessed 08/20/24 08/20/24 12:58 Const General: alert; No acute distress Eyes Conjunctivae: conjunctivae normal Resp Auscultation: clear to auscultation bilaterally Cardio Rate: regular rate Rhythm: regular rhythm GI Inspection: Yes normal to inspection Extrem General: Yes normal to inspection and No edema Coding Level of Care Code Est Pt Level 4 (87820) Complex EM visit Add On G2211 Diagnoses Type 2 diabetes mellitus with hyperglycemia, without long-term current use of insulin E11.65 Diabetes mellitus intermediate accountant insulin use: without intermediate accountant use CKD stage 3a, GFR 45-59 ml/min N18.31 Hypothyroidism E03.9 HTN (hypertension) I10 Hypertension type: unspecified Hypercholesterolemia E78.00 Chronic atrial fibrillation I48.20 Colon cancer screening Z12.11 Assessment & Plan Assessment & Plan (1) Type 2 diabetes mellitus with hyperglycemia: Code(s): E11.65 - Type 2 diabetes mellitus with hyperglycemia Category: Medical Qualifiers: Diabetes mellitus intermediate accountant insulin use: without intermediate accountant use Qualified Code(s): E11.65 - Type 2 diabetes mellitus with hyperglycemia (2) CKD stage 3a, GFR 45-59 ml/min: Code(s): N18.31 - Chronic kidney disease, stage 3a Category: Medical (3) Hypothyroidism: Code(s): E03.9 - Hypothyroidism, unspecified Category: Medical (4) HTN (hypertension): Code(s): I10 - Essential (primary) hypertension Category: Medical Qualifiers: Hypertension type: unspecified Qualified Code(s): I10 - Essential (primary) hypertension (5) Hypercholesterolemia: Code(s): E78.00 - Pure hypercholesterolemia, unspecified Category: Medical (6) Chronic atrial fibrillation: Code(s): I48.20 - Chronic atrial fibrillation, unspecified Category: Medical (7) Colon cancer screening: Code(s): Z12.11 - Encounter for screening for malignant neoplasm of colon Category: Medical Plan - Continue current management of hypertension, ensuring regular monitoring and adjustment of medications as necessary. - Maintain monitoring of kidney function with regular blood tests. Recommend avoiding nephrotoxic agents and ensure hydration. - Continue cholesterol management through diet and regular monitoring of lipid profiles; assess alternative lipid management strategies since statins are not tolerable. - Address diabetes management through tighter control of blood glucose levels; continue current therapy and emphasize the importance of dietary management. Consider adjusting medication regime if necessary. - Monitor leukocytosis; assess for potential underlying causes and continue observation as it has remained stable. - Administer tetanus vaccine as recommended, given its importance in preventing infection from dirty wounds. - Encourage continued healthy lifestyle practices, including regular physical activity and a balanced diet. - Follow up on any overdue preventive screenings, including a colonoscopy,. Orders: Orders Comprehensive Met. Panel 3 Months I48.20 - Chronic atrial fibrillation, unspecified Td State Immunization Today Z23 - Encounter for immunization Hemoglobin A1c 3 Months I48.20 - Chronic atrial fibrillation, unspecified Complete Blood Count Auto Diff 3 Months I48.20 - Chronic atrial fibrillation, unspecified Medications: New tetanus-diphtheria toxoids-Td 0.5 mL IM ONCE 0.5 mL 0RF Z23 - Encounter for immunization
== END 2024-08-20 13:36 | disposition home or self-care (01) ==
PROVIDERS: PCP Internal Medicine; Visit Provider Internal Medicine
DX: E11.65 Type 2 diabetes mellitus with hyperglycemia (principal); I12.9 Hypertensive chronic kidney disease with stage 1 through stage 4 chronic kidney disease, or unspecified chronic kidney disease; N18.31 Chronic kidney disease, stage 3a; I48.20 Chronic atrial fibrillation, unspecified; E03.9 Hypothyroidism, unspecified; E78.00 Pure hypercholesterolemia, unspecified; Z12.11 Encounter for screening for malignant neoplasm of colon; Z23 Encounter for immunization

== ENCOUNTER → 2024-08-20 12:47 | Outpatient (BNVA) | payer MEDICARE, SELFPAY | PROVIDERS: PCP Internal Medicine; Visit Provider Internal Medicine | DX: Z23 Encounter for immunization (principal); E11.65 Type 2 diabetes mellitus with hyperglycemia; I12.9 Hypertensive chronic kidney disease with stage 1 through stage 4 chronic kidney disease, or unspecified chronic kidney disease; E11.22 Type 2 diabetes mellitus with diabetic chronic kidney disease; N18.31 Chronic kidney disease, stage 3a; E03.9 Hypothyroidism, unspecified; E78.00 Pure hypercholesterolemia, unspecified; I48.20 Chronic atrial fibrillation, unspecified | CPT/HCPCS: 90471; 90714; 96127; 99212 ==

== ENCOUNTER 2024-11-15 08:27 | Outpatient (REF) | payer MEDICARE, SELFPAY ==
[2024-11-15 08:40] LABS: MANUAL DIFF FLAG NO
[2024-11-15 09:48] LABS: Basophils Absolute Auto 0.1 X10*3/uL (0.0-0.2); Basophils Percent Auto 0.6 % (0-2); Eosinophils Absolute Auto 0.2 X10*3/uL (0.0-0.4); Hematocrit 43.7 % (42.0-52.0); Hemoglobin 15.5 g/dl (14.0-18.0); Imm Gran Abs Auto 0.08 X10*3/uL (0.00-0.03); Imm Gran Pct Auto 0.8 % (0.0-0.4); Lymphocytes Absolute Auto 1.6 X10*3/uL (1.2-4.9); Mean Corpuscular HGB Conc 35.5 g/dl (31.0-36.0); Mean Corpuscular Hemoglobin 33.8 pg (27.0-33.0); Mean Corpuscular Volume 95.4 fL (80.0-98.0); Monocytes Absolute Auto 0.7 X10*3/uL (0.1-1.2); Monocytes Percent Auto 7.4 % (2-11); Neutrophils Absolute Auto 6.9 x10*3/uL (2.0-8.3); Neutrophils Percent Auto 72.2 % (45-73); Platelet Count 179 X10*3/uL (160-400); Red Blood Count 4.58 X10*6/uL (4.60-5.80); Red Cell Distribution Width 13.1 % (11.0-16.0); White Blood Count 9.6 X10*3/uL (4.8-10.8)
[2024-11-15 09:49] LABS: Estimated Average Glucose 131 mg/dL; Hemoglobin A1c % 6.2 % (<6.0)
[2024-11-15 10:34] LABS: Alanine Aminotransferase 32 U/L (0-40); Albumin Level 4.2 g/dL (3.5-5.0); Anion Gap 11 (12-20); Aspartate Amino Transferase 25 U/L (5-37); Bilirubin Total 0.8 mg/dL (0.0-1.0); Blood Urea Nitrogen 21 mg/dL (9-16); Calcium 9.6 mg/dL (8.4-10.2); Carbon Dioxide 27 mmol/L (22-29); Chloride 104 mmol/L (96-108); Estimated Glomerular Filt Rate > 60; Glucose Random 159 mg/dL (60-115); Potassium 4.2 mmol/L (3.3-5.1); Sodium 138 mmol/L (135-145); Total Protein 7.6 g/dL (6.5-8.0)
[2024-11-15 10:51] LABS: Alkaline Phosphatase 58 U/L (39-117)
[2024-11-15 11:02] LABS: Creatinine Urine 76.72 mg/dL
== END 2024-11-15 08:28 | disposition home or self-care (01) ==
LOC: HO.LAB 08:27
PROVIDERS: Internal Medicine Nephrology; PCP Internal Medicine; Visit Provider Internal Medicine
DX: I48.20 Chronic atrial fibrillation, unspecified (principal); E11.65 Type 2 diabetes mellitus with hyperglycemia; N18.31 Chronic kidney disease, stage 3a
CPT/HCPCS: 36415; 80053; 82570; 83036; 85025

== ENCOUNTER 2024-11-19 12:55 | Outpatient (AMB) | payer MEDICARE, SELFPAY ==
[2024-11-19 13:06] VITALS: BP 110/70; PULSE 90; TEMP 36.6; O2SAT 97; BMI 24.7
--- NOTE | 2024-11-19 13:06 | A.OFFPC_ITS ---
Vital Signs 11/19/24 13:06 Height 5 ft 6 in Weight 153 lb 4 oz BMI 24.7 BP 110/70 Blood Pressure Location Lt brachial Position Sitting Pulse 90 Pulse Source Pulse Oximeter Temp 97.8 F Temp Source Temporal Artery Scan Pulse Oximetry (%) 97 Oxygen Delivery Method Room Air Intake Visit Reasons: DM Allergies lisinopril Allergy (Unknown, Verified 11/19/24 13:09) sob Tzgocsl-ALF-VnK Reductase Inhibitor [Juyhkpq-Hol-Kca Reductase Inhibitor] Allergy (Unknown, Verified 11/19/24 13:09) myalgia prednisone Allergy (Verified 11/19/24 13:09) Unknown mold and dustmites Allergy (Unknown, Uncoded 11/19/24 13:09) unknown Medication List - Last Reconciled 11/19/24 by Parth Rajan MD allopurinol 200 mg (2 x 100 mg) PO DAILY 90 days apixaban (Eliquis) 5 mg PO BID ezetimibe (Zetia) 10 mg PO DAILY fluoxetine 10 mg PO DAILY fluticasone propionate 50 mcg/actuation 1 spray intranasal BID PRN levothyroxine 50 mcg PO QAM 90 days metoprolol succinate ER 100 mg PO BID omeprazole 20 mg PO DAILY@0630 psyllium husk (Metamucil) 0.8 grams PO DAILY Tobacco use date assessed: 11/19/24 Fall risk assessment: No Falls in past year Last assessed Fall Risk: 11/19/24 Dental Screening Dental Screen Date: 11/19/24 Did you have a dental visit in the last 12 months?: Yes Did you have a dental problem in the last 6 months where you did not have access to dental care?: No Was dental information given to patient?: Patient has dentist [facility] Medical History Elevated blood sugar Pericardial effusion Type 2 diabetes mellitus with hyperglycemia Vitamin D deficiency Fatty liver Asthma Erectile dysfunction Esophagitis Gout Hypothyroidism HTN (hypertension) CKD (chronic kidney disease) Chronic atrial fibrillation RBBB Orthostatic hypotension Surgical History History of thumb surgery Family History Father CAD (coronary artery disease) Mother Stroke Family/Other Stroke Other No family history of cancer Social History Household Members: Spouse Housing: House Are you a primary group care worker to a significant other at home: No Do you presently have visiting nurse or other home services: No Alcohol intake: current Patient Tobacco Use Status: Never used Tobacco e-Cigarette/Vaping Use: Never Used Second Hand Smoke Exposure: No service: No Current occupational status: retired Cognitive needs: No Hearing needs: Yes Vision needs: Yes (glasses) Questionnaire PHQ-9 Over the last 2 weeks, how often have you been bothered by any of the following problems? 1. Little interest or pleasure in doing things: not at all 2. Feeling down, depressed, or hopeless: not at all 3. Trouble falling or staying asleep, or sleeping too much: not at all 4. Feeling tired or having little energy: not at all 5. Poor appetite or overeating: not at all 6. Feeling bad about yourself - or that you are a failure or have let yourself or your family down: not at all 7. Trouble concentrating on things, such as reading the newspaper or watching television: not at all 8. Moving or speaking so slowly that other people could have noticed. Or the opposite - being so fidgety or restless that you have been moving around a lot more than usual: not at all 9. Thoughts that you would be better off or of hurting yourself in some way: not at all Total score: 0 Depression Screening Interpretation: Negative Depression Screening Done: Yes 10077 - PHQ-9 Billing: Yes Source: Developed by Drs. Adilson Judd, Frances Feliciano, Tye Bellamy and colleagues, with an educational mona from [employer]. Thrive Questionnaire Date Thrive assessed: 11/19/24 I am a: Patient What is your living situation today?: I have a steady place to live Within the past 12 months, did the food you bought not last and you didn't have the money to get more?: Never true Within the past 12 months, did you worry whether your food would run out before you got money to buy more?: Never true Do you have trouble paying for medicines?: No Do you have trouble getting transportation to medical appointments?: No Do you have trouble paying your heating and electricity bill?: No Do you have trouble taking care of your child, family member or friend?: No Do you have trouble with day-to-day activities such as bathing, preparing meals, shopping, managing finances, etc.?: No Are you currently unemployed and looking for a job?: No Are you interested in more education?: No Please select the resources that you would like help with: None THRIVE Score: 0 AUDIT C Alcohol Use Questionnaire (AUDIT-C) 1. How often do you have a drink containing alcohol?: 2-3 times a week 2. How many drinks containing alcohol do you have on a typical day when you are drinking?: 1 or 2 3. How often do you have six or more drinks on one occasion?: Never Total Score: 3 GINO-7 AMB Questionnaire GINO-7 Date GINO - 7 assessed: 11/19/24 Feeling nervous, anxious, or on edge: 0 = Not at all Not being able to stop or control worryin = Not at all Worrying too much about different things: 0 = Not at all Trouble relaxin = Not at all Being so restless that it is hard to sit still: 0 = Not at all Becoming easily annoyed or irritable: 0 = Not at all Feeling afraid as if something awful might happen: 0 = Not at all Total GINO-7 score (0-4 normal; 5-9 mild; 10-14 moderate; 15-21 severe): 0 Source: Developed by Drs. Adilson Judd, Frances Feliciano, Tye Bellamy and colleagues, with an educational mona from [employer]. GINO-7 Assessment Billing GINO-7 Assessment Tool: GINO-7 Assessment 37747 Physical exam (Primary Care) Vital Signs: Last Vital Signs Temp 97.8 F 11/19/24 13:06 Pulse 90 11/19/24 13:06 BP 110/70 11/19/24 13:06 Pulse Ox 97 11/19/24 13:06 Oxygen Delivery Method Room Air 11/19/24 13:06 BMI result Body Mass Index 24.7 Tobacco/Smoking Status: Tobacco use Status Tobacco use date assessed 11/19/24 11/19/24 13:11 Patient Tobacco Use Status Never used Tobacco 11/19/24 13:11 e-Cigarette/Vaping Use Never Used 11/19/24 13:11 PHQ-9: PHQ-9 Score PHQ-9: Total score 0 11/19/24 13:11 Depression Screening Interpretation: Negative Thrive Assessment: Date of Thrive Assessment Date Thrive assessed 11/19/24 11/19/24 13:11 Const General: alert; No acute distress Eyes Conjunctivae: conjunctivae normal Resp Auscultation: clear to auscultation bilaterally Cardio Rate: regular rate Rhythm: regular rhythm GI Inspection: Yes normal to inspection Extrem General: Yes normal to inspection and No edema Coding Level of Care Code Tele Est Pt Level 4 (61646) Complex EM visit Add On G2211 Diagnoses Type 2 diabetes mellitus with hyperglycemia, without long-term current use of insulin E11.65 Diabetes mellitus remote computer terminal operator insulin use: without assisted use Hypothyroidism E03.9 CKD stage 3a, GFR 45-59 ml/min N18.31 Colon cancer screening Z12.11 HTN (hypertension) I10 Hypertension type: unspecified Hypercholesterolemia E78.00 GINO (generalized anxiety disorder) F41.1 Additional Codes GINO-7 Assessment Billing - GINO-7 Assessment Tool: GINO-7 Assessment 76425 ([id number]) PHQ-9 - 78429 - PHQ-9 Billing: Yes ([id number]) Assessment & Plan Assessment & Plan (1) Type 2 diabetes mellitus with hyperglycemia: Comment: [employer] Code(s): E11.65 - Type 2 diabetes mellitus with hyperglycemia Category: Medical Qualifiers: Diabetes mellitus assisted insulin use: without remote computer terminal operator use Qualified Code(s): E11.65 - Type 2 diabetes mellitus with hyperglycemia Plan: Decrease the amount of carbohydrate intake, pasta, bread, rice and potatoes are all sugar and that is aside from all the sweet stuff, remember that fruits are good but they are Sweet also. Hemoglobin A1c goal of less than 7.0. Patient i (2) Hypothyroidism: Code(s): E03.9 - Hypothyroidism, unspecified Category: Medical Plan: s diet controlled continue with thyroid medication (3) CKD stage 3a, GFR 45-59 ml/min: Code(s): N18.31 - Chronic kidney disease, stage 3a Category: Medical Plan: keep well hydrated avoid NSAIDs (4) Colon cancer screening: Code(s): Z12.11 - Encounter for screening for malignant neoplasm of colon Category: Medical Plan: patient is reminded about colonoscopy (5) HTN (hypertension): Code(s): I10 - Essential (primary) hypertension Category: Medical Qualifiers: Hypertension type: unspecified Qualified Code(s): I10 - Essential (primary) hypertension Plan: Continue with blood pressure medication. Decrease salt intake and exercise on metoprolol 100 mg twice a day (6) Hypercholesterolemia: Code(s): E78.00 - Pure hypercholesterolemia, unspecified Category: Medical Plan: Avoid fried foods, chicken skin, eggs, butter margarine, pastries and meat. Be it pork or beef they have a lot of cholesterol LDL goal of less than 100 and triglyceride of less than 150 on Zetia patient can not take statins (7) GINO (generalized anxiety disorder): Code(s): F41.1 - Generalized anxiety disorder Category: Medical Plan: continue with present medication Plan History of Present Illness The patient is a 74-year-old male presenting with a routine follow-up for the management of chronic conditions. There is a history of atrial fibrillation diagnosed in October 2021, along with cardiomyopathy, hypertension, and hypercholesterolemia, which is managed to target levels. The patient has diabetes mellitus, controlled through dietary interventions, and hypothyroidism for which medication is ongoing. Chronic kidney disease is present but renal function tests were normal as of the latest blood work. Additionally, a diagnosis of generalized anxiety disorder exists. Previous blood work indicated a hemoglobin A1C of 6.2% and cholesterol testing in July 2024 showed an LDL of 97 mg/dL. The patient also reports a gradual increase in weight recently, though blood pressure remains stable and well-controlled. Health Maintenance - Hemoglobin A1C goal of less than 7.0 was discussed for diabetes management. - Patient reminded about the importance of colonoscopy as a screening measure. - Encouraged to continue thyroid medication and remain well hydrated. - Advised to avoid non-steroidal anti-inflammatory drugs (NSAIDs). - Discussed maintaining an LDL goal of less than 100 mg/dL and triglycerides of less than 150 mg/dL. Social History Review of Systems - Neurological: Denies any new neurological symptoms, reports past left hemiparesis. - Gastrointestinal: Reports bowel movements are more or less normal, with variations in consistency. - Hematologic: Reports bruising at blood draw site. Physical Exam - Neurological- Strength checked via finger squeeze, tongue, and shoulders assessed; no abnormalities noted. Results - Labs: Normal blood count, normal platelet and white blood cell count. - Tests: Electrolytes and renal function within normal limits; blood sugar was 159 mg/dL; hemoglobin A1C was 6.2%; LDL cholesterol level was 97 mg/dL in July 2024. Plan 1. 0%, with current levels at 6.2% indicating effective diabetes control. Cholesterol management should continue to focus on maintaining LDL levels below 100 mg/dL and triglycerides below 150 mg/dL, with current levels reflecting satisfactory control. Thyroid medication adherence remains important, as does adequate hydration and avoiding NSAIDs for kidney health. I reminded the patient about the importance of routine colonoscopy screening. Despite recent weight gain, blood pressure control is stable with ongoing medication. The necessity for consistent blood draws was discussed for monitoring purposes due to anticoagulation therapy related to atrial fibrillation and proteinuria from chronic kidney disease.: Patient was informed and verbally consented to the use of an ambient scribe for clinic note documentation during this visit. Discussion Notes During the visit, we discussed the management of the patient's chronic conditions, emphasizing the importance of maintaining current treatment regimens. The anticipated benefits in diabetes and cholesterol management targets were outlined, along with ongoing antihypertensive therapy. Risks associated with non-adherence, especially regarding renal function and cardiovascular risk, were reviewed. The necessity for routine blood work was explained in the context of monitoring anticoagulation and kidney function. I reinforced the importance of regular colonoscopy checks and lifestyle modifications such as hydration and avoiding NSAIDs. The patient was receptive to the management plan, understanding the relevance of each discussed intervention. Follow-up arrangements remain critical for ongoing monitoring and interventions, particularly in light of the minor weight gain observed recently. Patient Instructions - Continue current medications as prescribed. - Maintain a balanced diet to keep hemoglobin A1C below 7.0%. - Stay hydrated and avoid NSAIDs to support kidney health. - Schedule a colonoscopy as recommended for screening. - Monitor weight and continue blood pressure management. - Ensure regular follow-up visits for blood work and medication adjustments. Orders: Orders Complete Blood Count Auto Diff 6 Months E11.65 - Type 2 diabetes mellitus with hyperglycemia Comprehensive Met. Panel 6 Months E11.65 - Type 2 diabetes mellitus with hyperglycemia Lipid Panel 6 Months E11.65 - Type 2 diabetes mellitus with hyperglycemia, E78.00 - Pure hypercholesterolemia, unspecified Free T4 (Free Thyroxine) 6 Months E11.65 - Type 2 diabetes mellitus with hyperglycemia Thyroid Stimulating Hormone 6 Months E11.65 - Type 2 diabetes mellitus with hyperglycemia Vitamin B12 and Folate 6 Months E11.65 - Type 2 diabetes mellitus with hyp erglycemia Hemoglobin A1c 6 Months E11.65 - Type 2 diabetes mellitus with hyperglycemia
== END 2024-11-19 13:32 | disposition home or self-care (01) ==
LOC: HO.HMCH 12:55
PROVIDERS: PCP Internal Medicine; Visit Provider Internal Medicine
DX: I12.9 Hypertensive chronic kidney disease with stage 1 through stage 4 chronic kidney disease, or unspecified chronic kidney disease (principal); E11.65 Type 2 diabetes mellitus with hyperglycemia; N18.31 Chronic kidney disease, stage 3a; E03.9 Hypothyroidism, unspecified; Z12.11 Encounter for screening for malignant neoplasm of colon; E78.00 Pure hypercholesterolemia, unspecified; F41.1 Generalized anxiety disorder

== ENCOUNTER → 2024-11-19 12:55 | Outpatient (BNVA) | payer MEDICARE, SELFPAY | PROVIDERS: PCP Internal Medicine; Visit Provider Internal Medicine | DX: E11.65 Type 2 diabetes mellitus with hyperglycemia (principal); E03.9 Hypothyroidism, unspecified; I12.9 Hypertensive chronic kidney disease with stage 1 through stage 4 chronic kidney disease, or unspecified chronic kidney disease; E11.22 Type 2 diabetes mellitus with diabetic chronic kidney disease; N18.31 Chronic kidney disease, stage 3a; E78.00 Pure hypercholesterolemia, unspecified; F41.1 Generalized anxiety disorder | CPT/HCPCS: 96127; 99212 ==

== ENCOUNTER 2025-03-28 10:20 | Outpatient (REF) | payer SELFPAY ==
--- OUTSIDE RECORDS SUMMARY | 2025-03-28 10:53 | XMS_ITS | Clinical Summary ---
Author Organization [facility] Address [address] [place] [address] Phone Care Team Providers Care Clinical Laboratory Aide Name Role Phone Parth Rajan MD Primary Care Provider [phone] Allergies Active Allergy Reactions Criticality Noted Date Comments Prednisone Other (see comments) 11/12/2020 Medications apixaban (ELIQUIS) 5 MG tablet Take 1 tablet by mouth 2 (two) times a day Active fluticasone (FLONASE) 50 MCG/ACT nasal spray Administer into each nostril 2 (two) times a day Active levothyroxine (SYNTHROID, LEVOTHROID) 50 MCG tablet Take 1 tablet by mouth 1 (one) time each day Active metoprolol succinate XL (TOPROL XL) 50 MG 24 hr tablet Take 75 mg by mouth in the morning and 75 mg in the evening. 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 Stage 3a chronic kidney disease 11/12/2020 Immunizations Immunization Administration Dates Next Due Pneumococcal Polysaccharide 03/13/2014 Family History Medical History Relation Comments Heart disease Father Dementia Mother Heart disease Mother Hypertension Mother Stroke Mother Heart disease Sibling 1 Stroke Sibling 2 Relation Status Comments Father Mother Sibling 1 Sibling 2 Social History Tobacco Use Types Packs/Day Years Used Date Smoking Tobacco: Never Smokeless Tobacco: Never Tobacco Cessation:Counseling Given: Not Answered Alcohol Use Standard Drinks/Week Comments No 0 (1 standard drink = 0.6 oz pur e alcohol) Sex and Gender Information Value Date Recorded Sex Assigned at Not on file Legal Sex Male 5:10 PM EST Gender Identity Not on file Sexual Orientation Not on file Last Filed Vital Signs Vital Sign Reading Time Taken Comments Blood Pressure 126/82 02/02/2023 1:56 PM EDT Pulse 67 06/30/2022 1:13 PM EST Temperature - - Respiratory Rate - - Oxygen Saturation 99% 12/23/2021 12:59 PM EDT Inhaled Oxygen Concentration - - Weight 72 kg (158 lb 12.8 oz) 06/30/2022 1:13 PM EST Height 168.9 cm (5' 6.5 ) 04/30/2020 12:00 PM ED T Body Mass Index 25.25 04/30/2020 12:00 PM EDT Plan of Treatment Health Maintenance Due Date Last Done Comments Colorectal Cancer Screening: Annual FOBT 2000 Colorectal Cancer Screening: Colonoscopy 2000 Colorectal Cancer Screening: Sigmoidoscopy 2000 Pneumococcal Vaccine: 50+ Ye ars (2 of 2 - PCV) 03/13/2015 03/13/2014 Influenza Vaccine (#1) 2025 Pneumococcal Vaccine: Peds ( 0 to 5 Years) and At-Risk Patients (6 to 49 Years) Discontinued 03/13/2014 Hepatitis B Vaccine Aged Out No longe r eligible based on patient's age to complete this topic Insurance [facility] Medicare [facility] Medicare Care Teams Clinical Laboratory Aide Relationship Specialty Start Date End Date Parth Rajan MD [address] [place] [address] PCP - General 09/01/20
--- OUTSIDE RECORDS SUMMARY | 2025-03-28 10:53 | XMS_ITS | Patient Health Record ---
Author Organization [facility] Address [address] [place] [address] Care Team Providers Care Family Court Counsellor Name Role Phone Po Parth LONG Primary Care Provider Adilson Torres [phone] Allergies Allergen (clinical drug ingredient) Drug/Non Drug Allergy documented on EMR Reaction Allergy Type Onset Date Status PredniSONE Unknown Drug Allergy Active lisinopril Lisinopril Unknown Drug Allergy Activ e Reason For Referral No Information Medications Medication SIG (Take, Route, Frequency, Duration) Notes Start Date End Date Status Levothyroxine Sodium 50 MCG 1 tablet in the morning on an empty stomach Orally Once a day for 30 day(s) Active Metoprolol Succinate 100 MG 1 capsule Orally Once a day for 30 days Active Eliquis 5 MG as directed Orally BID Active Metamucil 0.36 GM as directed Orally Active Allopurinol - as directed Acti ve FLUoxetine HCl 10 MG 1 capsule Orally Once a day Active Ezetimibe 10 MG 1 tablet Orally Once a day Active Omeprazole 20 MG TAKE 1 CAPSULE BY MOUTH EVERY DAY for 90 Please tell patient to call my office for an appointment. Thanks Active Flonase Sensimist 27.5 MCG/SPRAY 1 spray in each nostril Nasally BID/PRN Active Immunizations Vaccine Route Administration Date Status Comme nts Influenza Unknown 06/13/2019 Administered Influenza Unknown 07/03/2024 Administered Social History Tobacco Use: Social History Observation Description Date Details (start date - stop date) Never Smoker NA - NA Tobacco Use/Smoking Question Answer Notes Patient is a nonsmoker Alcohol Screen Question Answer Notes Did you have a drink contain ing alcohol in the past year? Yes How often did you have a dri nk containing alcohol in the past year? 2 to 3 times a week (3 points) How many drinks did you have on a typical day when you were drinking in the past year? 1 or 2 drinks (0 point) How often did you have 6 or more drinks on one occasion in the past year? Never (0 point) Points 3 Interpretation Negative Section Notes: No sig alcohol, nonsmoker No sig alcohol, nonsmoker No sig alcohol, nonsmoker Problems Problem Type SNOMED Code ICD Code Onset Dates Problem Status W/U Status Risk Notes Problem 45902842 Rectal bleeding (K62.5) Active confirmed Problem 616684266 Encounter for screening for malignant neoplasm of colon (Z12.11) Active confirmed Problem 301532008 History of adenomatous polyp of colon (Z86.010) Active confirmed Problem 235594249 Irritable bowel syndrome with diarrhea (K58.0) Active confirmed Problem 380478652 Reflux esophagitis (K21.0) Active confirmed Problem 32644099 Diarrhea, unspecified type (R19.7) Active confirmed Problem 062177818 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) Active confirmed Vital Signs Temperature 96.2 degrees Fahrenheit 03/05/2025 Blood pressure diastolic 01 mm Hg 03/05/2025 Height 66 in 03/05/2025 Blood pressure systolic 001 mm Hg 03/05/2025 Weight 151.6 lbs 03/05/2025 BMI 24.47 kg/m2 03/05/2025 Procedures Procedure Date Ordered Date Performed Result Body Sit e UPPER GI ENDOSCOPY 03/05/2025 N/A COLONOSCOPY 03/05/2025 N/A Encounters Encounter Location Date Provider Diagnosis [facility] [address] [place] [address] 03/05/2025 Adilson Caballero Encounter for screening for malignant neoplasm of colon Z12.11 ; Moctezuma''s esophagus without dysplasia K22.70 ; Reflux esophagitis K21.0 and History of adenomatous polyp of colon Z86.010 Assessments Encounter Date Diagnosis (ICD Code) Assessment Notes Treatment Notes Treatment Clinical Notes Section Notes 03/05/2025 Encounter for screening for malignant neoplasm of colon (ICD-10 - Z12.11) Overall, Althea appears quite well. His reflux seems to be stable on the current regimen of the daily omeprazole. He is not having any new or worrisome symptoms in that regard. I did recommend a follow-up upper endoscopy given the finding of the small area of Moctezuma's esophagus in 2019. We did review the theoretical increased risk of esophageal cancer in patients with Moctezuma's esophagus. I have also recommended a follow-up colonoscopy for further screening given the history of a small tubular adenoma removed in 2019. We did review the rationale for that in regard to colorectal cancer prevention. Full consent has been obtained from him for both procedures, including risks of bleeding and perforation. He was given the below instructions regarding the adjustment of his medication. We shall clear that with his surgery attendant. The procedures will be done with monitored anesthesia care. Thank you again for allowing me to participate in Althea's care. I shall continue to keep you advised of his progress. 03/05/2025 Moctezuma''s esophagus without dysplasia (ICD-10 - K22.70) Overall, Althea appears quite well. His reflux seems to be stable on the current regimen of the daily omeprazole. He is not having any new or worrisome symptoms in that regard. I did recommend a follow-up upper endoscopy given the finding of the small area of Moctezuma's esophagus in 2019. We did review the theoretical increased risk of esophageal cancer in patients with Moctezuma's esophagus. I have also recommended a follow-up colonoscopy for further screening given the history of a small tubular adenoma removed in 2019. We did review the rationale for that in regard to colorectal cancer prevention. Full consent has been obtained from him for both procedures, including risks of bleeding and perforation. He was given the below instructions regarding the adjustment of his medication. We shall clear that with his surgery attendant. The procedures will be done with monitored anesthesia care. Thank you again for allowing me to participate in Althea's care. I shall continue to keep you advised of his progress. 03/05/2025 Reflux esophagitis (ICD-10 - K21.0) Overall, Althea appears quite well. His reflux seems to be stable on the current regimen of the daily omeprazole. He is not having any new or worrisome symptoms in that regard. I did recommend a follow-up upper endoscopy given the finding of the small area of Moctezuma's esophagus in 2019. We did review the theoretical increased risk of esophageal cancer in patients with Moctezuma's esophagus. I have also recommended a follow-up colonoscopy for further screening given the history of a small tubular adenoma removed in 2019. We did review the rationale for that in regard to colorectal cancer prevention. Full consent has been obtained from him for both procedures, including risks of bleeding and perforation. He was given the below instructions regarding the adjustment of his medication. We shall clear that with his surgery attendant. The procedures will be done with monitored anesthesia care. Thank you again for allowing me to participate in Althea's care. I shall continue to keep you advised of his progress. 03/05/2025 History of adenomatous polyp of colon (ICD-10 - Z86.010) Overall, Althea appears quite well. His reflux seems to be stable on the current regimen of the daily omeprazole. He is not having any new or worrisome symptoms in that regard. I did recommend a follow-up upper endoscopy given the finding of the small area of Moctezuma's esophagus in 2019. We did review the theoretical increased risk of esophageal cancer in patients with Moctezuma's esophagus. I have also recommended a follow-up colonoscopy for further screening given the history of a small tubular adenoma removed in 2019. We did review the rationale for that in regard to colorectal cancer prevention. Full consent has been obtained from him for both procedures, including risks of bleeding and perforation. He was given the below instructions regarding the adjustment of his medication. We shall clear that with his surgery attendant. The procedures will be done with monitored anesthesia care. Thank you again for allowing me to participate in Althea's care. I shall continue to keep you advised of his progress. Plan Of Treatment Pending Test Test Name Order Date UPPER GI ENDOSCOPY 03/05/2025 COLONOSCOPY 03/05/2025 Future Test Test Name Order Date COLONOSCOPY 06/27/2019 Next Appt Details Provider Name:Adilson Shi Caballero , 05/29/2025 09:30:00 AM, [address] [place] [address] , [place], [place], [phone], Insurance Providers Payer Name Payer Address Payer Phone Subscriber Number Group Number Insured Name Patient Relationship to Insured Coverage Start Date Coverage End Date MEDICARE OF [place] [address] [place] [address] [id number] ALTHEA HERNANDEZ Self - patient is the insured [employer] ATT[employer] CLAIMS [address] [place] [address] [phone] [id number] ALTHEA HERNANDEZ Self - patient is the insured Medical (General) History Medical History History ICD Code Denies [place],DM,CVA,Lung disease Hypertension Kidney disease-Dr. Patricio Atrial fibrillation Neg screening colonoscopy in 2006 except for a hyperplastic polyp Hypothyroidism Neg. studies for hemochromatosis IBS with diarrhea--duodenal biopsies were negative for celiac disease in 2018 GERD with associated esophag itis, small hiatal hernia, and tiny area of Moctezuma's esophagus on the 07/2019 endoscopy Colonoscopy 07/2019--one sma ll tubular adenoma, normal colon biopsies without any microscopic colitis nor inflammatory bowel disease Neg. tests for hemochromatosis in 2019 Stroke 11/15/21 with some residual left-s ided weakness Surgical History Surgery Date(Month/Year) Thumb surgery
== END 2025-03-28 10:21 | disposition home or self-care (01) ==
LOC: HO.SH 10:20
PROVIDERS: Visit Provider Internal Medicine
DX: Z13.89 Encounter for screening for other disorder (principal)

== ENCOUNTER 2025-04-15 15:15 | Outpatient (REF) | payer MEDICARE, SELFPAY ==
--- OUTSIDE RECORDS SUMMARY | 2025-04-15 16:53 | XMS_ITS | Patient Health Record ---
Author Organization [facility] Address [address] [place] [address] Care Team Providers Care Siding Mechanic Name Role Phone Po Parth LONG Primary Care Provider Adilson Torres [phone] Allergies Allergen (clinical drug ingredient) Drug/Non Drug [...] Problem Status W/U Status Risk Notes Problem 10542337 Rectal bleeding (K62.5) Active confirmed Problem 167153032 Encounter for screening for malignant neoplasm of colon (Z12.11) Active confirmed Problem 366986013 History of adenomatous polyp of colon (Z86.010) Active confirmed Problem 574889139 Irritable bowel syndrome with diarrhea (K58.0) Active confirmed Problem 873588600 Reflux esophagitis (K21.0) Active confirmed Problem 49108311 Diarrhea, unspecified type (R19.7) Active confirmed Problem 531145018 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 We shall clear that with his machine puller over. The procedures will be done with monitored [...] medication. We shall clear that with his machine puller over. The procedures will be done with monitored [...] medication. We shall clear that with his machine puller over. The procedures will be done with monitored [...] medication. We shall clear that with his machine puller over. The procedures will be done with monitored [...] Name:Adilson Shi Caballero , 05/29/2025 09:30:00 AM, [address] [place] [address] , [place], [place], [id number], Insurance Providers Payer Name Payer Address Payer Phone Subscriber Number Group Number Insured Name Patient Relationship to Insured Coverage Start Date Coverage End Date MEDICARE OF [place] [address] [place] [address] [id number] ALTHEA HERNANDEZ Self - patient is the insured MED[employer] ATT[employer] CLAIMS [address] [place] [address] [phone] [id number] ALTHEA HERNANDEZ Self - patient is the insured Medical (General) History Medical History History ICD Code Denies [place],DM,CVA,Lung disease Hypertension Kidney disease-Dr. Patricio Atrial fibrillation [...]
--- OUTSIDE RECORDS SUMMARY | 2025-04-15 16:53 | XMS_ITS | Clinical Summary ---
Author Organization [facility] Address [address] [place] [address] Phone Care Team Providers Care Healthcare Science Specialist Name Role Phone Parth Rajan MD Primary Care Provider [phone] Allergies Active Allergy Reactions Criticality Noted Date [...] patient's age to complete this topic Insurance [facility] Medicare [facility] Medicare Care Teams Healthcare Science Specialist Relationship Specialty Start Date End Date Parth Rajan MD [address] [place] [address] PCP - General 09/01/20
== END 2025-04-15 15:16 | disposition home or self-care (01) ==
LOC: HO.HAP 15:15
PROVIDERS: Visit Provider Internal Medicine
DX: Z13.89 Encounter for screening for other disorder (principal)

== ENCOUNTER 2025-04-24 10:02 | Outpatient (REF) | payer MEDICARE, SELFPAY ==
[2025-04-24 10:27] LABS: MANUAL DIFF FLAG NO
[2025-04-24 10:56] LABS: Hematocrit 45.2 % (42.0-52.0); Hemoglobin 15.8 g/dl (14.0-18.0); Imm Gran Abs Auto 0.07 X10*3/uL (0.00-0.03); Imm Gran Pct Auto 0.8 % (0.0-0.4); Lymphocytes Absolute Auto 1.5 X10*3/uL (1.2-4.9); Mean Corpuscular HGB Conc 35.0 g/dl (31.0-36.0); Mean Corpuscular Hemoglobin 32.6 pg (27.0-33.0); Mean Corpuscular Volume 93.2 fL (80.0-98.0); NRBC Abs Auto 0.000 X10*3/uL (0.0-0.012); NRBC Pct Auto 0.0 /100WBC (0.0-0.2); Platelet Count 196 X10*3/uL (160-400); Red Blood Count 4.85 X10*6/uL (4.60-5.80); White Blood Count 8.6 X10*3/uL (4.8-10.8)
[2025-04-24 11:07] LABS: Hemoglobin A1C 229.0975 umol/L; Total Hemoglobin (HGBA1C) 4046.9417 umol/L
--- OUTSIDE RECORDS SUMMARY | 2025-04-24 11:32 | XMS_ITS | Clinical Summary ---
Author Organization [facility] Address [address] [place] [address] Phone Care Team Providers Care Spool Tender Name Role Phone Parth Rajan MD Primary Care Provider [phone] Allergies Active Allergy Reactions Criticality Noted Date [...] patient's age to complete this topic Insurance [facility] Medicare [facility] Medicare Care Teams Spool Tender Relationship Specialty Start Date End Date Parth Rajan MD [address] [place] [address] PCP - General 09/01/20
--- OUTSIDE RECORDS SUMMARY | 2025-04-24 11:32 | XMS_ITS | Patient Health Record ---
Author Organization [facility] Address [address] [place] [address] Care Team Providers Care Lump Roller Name Role Phone Po Parth LONG Primary Care Provider Adilson Torres [phone] Allergies Allergen (clinical drug ingredient) Drug/Non Drug [...] Problem Status W/U Status Risk Notes Problem 37510037 Rectal bleeding (K62.5) Active confirmed Problem 322600472 Encounter for screening for malignant neoplasm of colon (Z12.11) Active confirmed Problem 170885333 History of adenomatous polyp of colon (Z86.010) Active confirmed Problem 213907335 Irritable bowel syndrome with diarrhea (K58.0) Active confirmed Problem 906069445 Reflux esophagitis (K21.0) Active confirmed Problem 33860725 Diarrhea, unspecified type (R19.7) Active confirmed Problem 785430918 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 We shall clear that with his investor. The procedures will be done with monitored [...] medication. We shall clear that with his investor. The procedures will be done with monitored [...] medication. We shall clear that with his investor. The procedures will be done with monitored [...] medication. We shall clear that with his investor. The procedures will be done with monitored [...] Name:Adilson Shi Caballero , 05/29/2025 09:30:00 AM, [address] [place] [address] , [place], [place], [id number], Insurance Providers Payer Name Payer Address Payer Phone Subscriber Number Group Number Insured Name Patient Relationship to Insured Coverage Start Date Coverage End Date MEDICARE OF [place] [address] [place] [address] [id number] ALTHEA HERNANDEZ Self - patient is the insured [employer] ATTN CLAIMS [address] [place] [address] [id number] ALTHEA HERNANDEZ Self - patient is the insured Medical (General) History Medical History History ICD Code Denies [place],DM,CVA,Lung disease Hypertension Kidney disease-Dr. Patricio Atrial fibrillation [...]
[2025-04-24 11:33] LABS: Alanine Aminotransferase 46 U/L (0-40); Albumin Level 4.7 g/dL (3.5-5.0); Alkaline Phosphatase 67 U/L (39-117); Anion Gap 14 (12-20); Aspartate Amino Transferase 28 U/L (5-37); Blood Urea Nitrogen 21 mg/dL (9-16); Calcium 9.6 mg/dL (8.4-10.2); Carbon Dioxide 25 mmol/L (22-29); Chloride 102 mmol/L (96-108); Cholesterol 213 mg/dL (<200); Estimated Glomerular Filt Rate 55; HDL Cholesterol 41 mg/dL (>40); Potassium 4.4 mmol/L (3.3-5.1); Sodium 137 mmol/L (135-145); Total Protein 8.0 g/dL (6.5-8.0); Triglycerides 190 mg/dL (<150)
[2025-04-24 11:46] LABS: Free T4 (Free Thyroxine) 1.09 ng/dL (0.71-1.85)
[2025-04-24 11:47] LABS: Thyroid Stimulating Hormone 4.01 uIU/mL (0.32-4.0)
[2025-04-24 12:01] LABS: Folate 8.9 ng/mL (> or = 4.0); Vitamin B12 420 pg/mL (200-900)
== END 2025-04-24 10:03 | disposition home or self-care (01) ==
LOC: HO.LAB 10:02
PROVIDERS: Absent Provider Internal Medicine Nephrology; PCP Internal Medicine; Visit Provider Internal Medicine
DX: E78.00 Pure hypercholesterolemia, unspecified (principal); E11.65 Type 2 diabetes mellitus with hyperglycemia
CPT/HCPCS: 36415; 80053; 80061; 82607; 82746; 83036; 84439; 84443; 85025

== ENCOUNTER 2025-04-26 11:15 | Outpatient (AMB) | payer MEDICARE, SELFPAY ==
--- NOTE | 2025-04-26 11:24 | HO.NEPHOV ---
Vital Signs 04/26/25 11:25 Height 5 ft 6 in Weight 151 lb BMI 24.4 BP 130/82 Blood Pressure Location Rt brachial Position Sitting Pulse 57 Pulse Source Pulse Oximeter Pulse Oximetry (%) 97 Oxygen Delivery Method Room Air Intake Visit Reasons: CKD-LVM Chainstitch Zipper Setter Required: No Accompanied by: Spouse Allergies lisinopril Allergy (Unknown, Verified 04/26/25 11:25) sob Fipddhc-DCJ-JlB Reductase Inhibitor (Untnude-Brr-Hsx Reductase Inhibitor) Allergy (Unknown, Verified 04/26/25 11:) myalgia prednisone Allergy (Verified 04/26/25 11:) Unknown mold and dustmites Allergy (Unknown, Uncoded 11/19/24 13:09) unknown HPI Comments Details: Gabriele was seen in follow-up of his chronic kidney disease and hypertension. He was accompanied by his during this office visit. His creatinine is stable around baseline, 1.28. Urine protein creatinine ratio 0.24 in July 2024. He has history of CVA in the past without much residual deficits. His blood sugars and blood pressures are well controlled. He does not take any bgqy-dui-dhseayo medications. His heart rate is well controlled. He has not on amiodarone anymore. He denies chest pain, shortness of breath, pedal edema, nausea, vomiting, diarrhea or hematuria. He denied orthostatic symptoms. He maintain good hydration and avoid nonsteroidal anti-inflammatories. [facility] Medical History Elevated blood sugar Pericardial effusion Type 2 diabetes mellitus with hyperglycemia Vitamin D deficiency Fatty liver Asthma Erectile dysfunction Esophagitis Gout Hypothyroidism HTN (hypertension) CKD (chronic kidney disease) Chronic atrial fibrillation RBBB Orthostatic hypotension Surgical History History of thumb surgery Family History Father CAD (coronary artery disease) Mother Stroke Family/Other Stroke Other No family history of cancer Social History Household Members: Spouse Housing: House Are you a primary respiratory care specialist to a significant other at home: No Do you presently have visiting nurse or other home services: No Alcohol intake: current Patient Tobacco Use Status: Never used Tobacco e-Cigarette/Vaping Use: Never Used Second Hand Smoke Exposure: No service: No Current occupational status: retired Cognitive needs: No Hearing needs: Yes Vision needs: Yes (glasses) Review of Systems Const All systems reviewed & are unremarkable except as noted in HPI and below Physical Exam Vital Signs: Last Vital Signs Pulse 57 04/26/25 11:25 BP 130/82 04/26/25 11:25 Pulse Ox 97 04/26/25 11:25 Oxygen Delivery Method Room Air 04/26/25 11:25 BMI result Body Mass Index 24.4 Const General: comfortable and no acute distress Orientation/consciousness: patient oriented x3 Neck Neck: Yes supple Resp Auscultation: clear to auscultation bilaterally Cardio Jugular venous distension: no JVD Rate: regular rate GI Palpation (GI): Soft to palpation Auscultation: normal bowel sounds General: Yes no CVA tenderness Back/Spine/Pelvis Back: no CVA tenderness Skin General skin exam: no rashes or lesions noted Neuro General: patient oriented x3 and moves all extremities Extrem General: Yes no pedal edema Results Reviewed Nephrology Results: Hgb, (14.0-18.0) 15.8 g/dl 04/24/25 WBC, (4.8-10.8) 8.6 X10*3/uL 04/24/25 Plt Count, (160-400) 196 X10*3/uL 04/24/25 Sodium, (135-145) 137 mmol/L 04/24/25 Potassium, (3.3-5.1) 4.4 mmol/L 04/24/25 Chloride, (96-108) 102 mmol/L 04/24/25 Carbon Dioxide, (22-29) 25 mmol/L 04/24/25 BUN, (9-16) 21 mg/dL H 04/24/25 Creatinine, (0.5-1.4) 1.28 mg/dL 04/24/25 Calcium, (8.4-10.2) 9.6 mg/dL 04/24/25 Urine Creatinine 76.72 mg/dL 11/15/24 Protein/Creatinin Ratio, (<0.2) 0.25 H 08/03/24 Assessment & Plan Assessment & Plan (1) CKD stage 3a, GFR 45-59 ml/min: Code(s): N18.31 - Chronic kidney disease, stage 3a Category: Medical (2) Type 2 diabetes mellitus with hyperglycemia: Comment: lenscrafters Code(s): E11.65 - Type 2 diabetes mellitus with hyperglycemia Category: Medical Qualifiers: Diabetes mellitus fci insulin use: without exterminator helper use Qualified Code(s): E11.65 - Type 2 diabetes mellitus with hyperglycemia (3) HTN (hypertension): Code(s): I10 - Essential (primary) hypertension Category: Medical Qualifiers: Hypertension type: unspecified Qualified Code(s): I10 - Essential (primary) hypertension Plan Gabriele has CKD stage 3 from vascular disease. He had Doppler of renal arteries in the past which did not show any critical narrowing. His urine output is good. His serum creatinine is stable. His blood pressure is at goal and his heart rate is well controlled. He has not had any gout attacks and can maintain on allopurinol 200 mg daily he needs to keep up with adequate hydration and should avoid nonsteroidal anti-inflammatories. His A1c is slightly elevated at 7.3. Jardiance 10mg PO daily was added today, education about side effects of medication provided to patient and his today. Discussed the improtance of hydration. He will get labs checked in 4 weeks given addition of SGLT2i today. All questions answered. Follow-up appointment given. Orders: Orders Electrolytes 4 Weeks E11.65 - Type 2 diabetes mellitus with hyperglycemia, I10 - Essential (primary) hypertension, N18.31 - Chronic kidney disease, stage 3a Blood Urea Nitrogen 4 Weeks E11.65 - Type 2 diabetes mellitus with hyperglycemia, I10 - Essential (primary) hypertension, N18.31 - Chronic kidney disease, stage 3a Creatinine 4 Weeks E11.65 - Type 2 diabetes mellitus with hyperglycemia, I10 - Essential (primary) hypertension, N18.31 - Chronic kidney disease, stage 3a Medications: New empagliflozin 10 mg PO DAILY 90 tabs 2RF E11.65 - Type 2 diabetes mellitus with hyperglycemia, N18.31 - Chronic kidney disease, stage 3a Coding Level of Care Code Est Pt Level 4 (09293) Diagnoses CKD stage 3a, GFR 45-59 ml/min N18.31 Type 2 diabetes mellitus with hyperglycemia, without long-term current use of insulin E11.65 Diabetes mellitus exterminator helper insulin use: without fci use HTN (hypertension) I10 Hypertension type: unspecified
[2025-04-26 11:25] VITALS: BP 130/82; PULSE 57; O2SAT 97; BMI 24.4
--- OUTSIDE RECORDS SUMMARY | 2025-04-26 12:21 | XMS_ITS | Patient Health Record ---
Author Organization [facility] Address [address] [place] [address] Care Team Providers Care Thermal Cutter Helper Name Role Phone Po Parth LONG Primary Care Provider Adilson Torres [phone] Allergies Allergen (clinical drug ingredient) Drug/Non Drug [...] Problem Status W/U Status Risk Notes Problem 39522909 Rectal bleeding (K62.5) Active confirmed Problem 036724203 Encounter for screening for malignant neoplasm of colon (Z12.11) Active confirmed Problem 700026090 History of adenomatous polyp of colon (Z86.010) Active confirmed Problem 603440053 Irritable bowel syndrome with diarrhea (K58.0) Active confirmed Problem 484881169 Reflux esophagitis (K21.0) Active confirmed Problem 79089745 Diarrhea, unspecified type (R19.7) Active confirmed Problem 107515361 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 We shall clear that with his crepe box tender. The procedures will be done with monitored [...] medication. We shall clear that with his crepe box tender. The procedures will be done with monitored [...] medication. We shall clear that with his crepe box tender. The procedures will be done with monitored [...] medication. We shall clear that with his crepe box tender. The procedures will be done with monitored [...] Name:Adilson Shi Caballero , 05/29/2025 09:30:00 AM, [address] [place] [address] , [place], [place], [id number], Insurance Providers Payer Name Payer Address Payer Phone Subscriber Number Group Number Insured Name Patient Relationship to Insured Coverage Start Date Coverage End Date [place] [address] [place] [address] [id number] ALTHEA HERNANDEZ Self - patient is the insured [employer] ATT[employer] CLAIMS [address] [place] [address] [phone] [id number] ALTHEA HERNANDEZ Self - patient is the insured Medical (General) History Medical History History ICD Code Denies [place],DM,CVA,Lung disease Hypertension Kidney disease-Dr. Patricio Atrial fibrillation [...]
--- OUTSIDE RECORDS SUMMARY | 2025-04-26 12:21 | XMS_ITS | Clinical Summary ---
Author Organization [facility] Address [address] [place] [address] Phone Care Team Providers Care Joiner Helper Name Role Phone Parth Rajan MD Primary Care Provider [phone] Allergies Active Allergy Reactions Criticality Noted Date [...] patient's age to complete this topic Insurance [facility] Medicare [facility] Medicare Care Teams Joiner Helper Relationship Specialty Start Date End Date Parth Rajan MD [address] [place] [address] PCP - General 09/01/20
== END 2025-04-26 11:41 | disposition home or self-care (01) ==
PROVIDERS: PCP Internal Medicine; Visit Provider Nurse Practitioner Family
DX: N18.31 Chronic kidney disease, stage 3a (principal); E11.65 Type 2 diabetes mellitus with hyperglycemia; I10 Essential (primary) hypertension
CPT/HCPCS: 99214

== ENCOUNTER → 2025-04-26 11:15 | Outpatient (BNVA) | payer MEDICARE, SELFPAY | PROVIDERS: PCP Internal Medicine; Visit Provider Internal Medicine Nephrology | DX: E11.22 Type 2 diabetes mellitus with diabetic chronic kidney disease (principal); I12.9 Hypertensive chronic kidney disease with stage 1 through stage 4 chronic kidney disease, or unspecified chronic kidney disease; N18.31 Chronic kidney disease, stage 3a; E11.65 Type 2 diabetes mellitus with hyperglycemia | CPT/HCPCS: 99212 ==

== ENCOUNTER 2025-05-17 08:34 | Emergency (ER) | payer MEDICARE, SELFPAY ==
[2025-05-17 08:42] VITALS: BP 160/83; PULSE 82; RESP 18; TEMP 36.6; O2SAT 99; BMI 23.8
[2025-05-17 09:03] LABS: Appearance Urine Clear; Glucose Urine UA 500 mg/dL (Negative); PH 5.5 (5.0-9.0); Specific Gravity - Urine 1.010 (1.005-1.025); UMIC TRIGGER UACC YES
[2025-05-17 09:21] LABS: UACC Culture Trigger YES
--- OUTSIDE RECORDS SUMMARY | 2025-05-17 09:49 | XMS_ITS | Patient Health Record ---
Author Organization [facility] Address [address] [place] [address] Care Team Providers Care Chair Finisher Name Role Phone Po Parth LONG Primary Care Provider Adilson Torres [phone] Allergies Allergen (clinical drug ingredient) Drug/Non Drug [...] Problem Status W/U Status Risk Notes Problem 87047122 Rectal bleeding (K62.5) Active confirmed Problem 004746051 Encounter for screening for malignant neoplasm of colon (Z12.11) Active confirmed Problem 734434827 History of adenomatous polyp of colon (Z86.010) Active confirmed Problem 747052714 Irritable bowel syndrome with diarrhea (K58.0) Active confirmed Problem 073204463 Reflux esophagitis (K21.0) Active confirmed Problem 59970566 Diarrhea, unspecified type (R19.7) Active confirmed Problem 019351337 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 We shall clear that with his stocklayer. The procedures will be done with monitored [...] medication. We shall clear that with his stocklayer. The procedures will be done with monitored [...] medication. We shall clear that with his stocklayer. The procedures will be done with monitored [...] medication. We shall clear that with his stocklayer. The procedures will be done with monitored anesthesia care. Thank you again for allowing me to participate in Althea's care. I shall continue to keep you advised of his progress. Plan Of Treatment Pending Test Test Name Order Date UPPER GI ENDOSCOPY 03/05/2025 COLONOSCOPY 03/05/2025 Future Test Test Name Order Date COLONOSCOPY 06/27/2019 Next Appt Details Provider Name:Adilson Shi Caballero , 05/29/2025 08:30:00 AM, [address] [place] [address] , [place], [place], [id number], Insurance Providers Payer Name Payer Address Payer Phone Subscriber Number Group Number Insured Name Patient Relationship to Insured Coverage Start Date Coverage End Date [place] [address] [place] [address] [id number] ALTHEA HERNANDEZ Self - patient is the insured MED[employer] ATTN CLAIMS [address] [place] [address] [id number] ALTHEA HERNANDEZ Self - patient is the insured Medical (General) History Medical History History ICD Code Denies [place],DM,CVA,Lung disease Hypertension Kidney disease-Dr. Patricio Atrial fibrillation [...]
--- NOTE | 2025-05-17 11:09 | ED_ITS ---
HPI - Male Genitourinary General Chief complaint: Urogenital-Male Stated complaint: trouble urinating Time Seen by Provider: 05/17/25 11:09 Source: patient and family Mode of arrival: ambulatory Limitations: no limitations History of Present Illness ED Provider: HPI Narrative: 74-year-old male presenting with frequency, dysuria for the past 3 days, no fevers or chills no nausea no vomiting. Patient has appointment with the PCP, it up soon. No flank pain no abdominal pain. He is here with his spouse. Related Data Home Medications ?Medication ?Instructions ?Recorded ?Confirmed fluticasone propionate 50 1 spray intranasal BID PRN A llergy 11/15/21 11/19/24 mcg/actuation nasal Symptoms spray,suspension psyllium husk 0.4 gram capsule 0.8 g PO DAILY 11/15/21 11/19/24 (Metamucil) Previous Rx's ?Medication ?Instructions ?Recorded metoprolol succinate 100 mg 100 mg PO BID #180 tabs tablet,extended release 24 hr ezetimibe 10 mg tablet (Zetia) 10 mg PO DAILY #90 tabs 12/27/24 levothyroxine 50 mcg tablet 50 mcg PO QAM 90 days #90 tabs 12/27/24 apixaban 5 mg tablet (Eliquis) 5 mg PO BID #180 tabs 0 02/28/25 omeprazole 20 mg capsule,delayed 20 mg PO DAILY@0630 # 90 caps 03/27/25 release allopurinol 100 mg tablet 200 mg (2 x 100 mg) PO DAILY #180 04/01/25 tabs fluoxetine 10 mg capsule 10 mg PO DAILY #90 caps 03/22 01/13 empagliflozin 10 mg tablet 10 mg PO DAILY #90 tabs 01/13 cephalexin 500 mg capsule 500 mg PO BID 6 days #12 cap s 05/17/25 Allergies Allergy/AdvReac Type Severity Reaction Status Date / Time lisinopril Allergy Unknown sob Verified 05/17/25 08:45 Brvnmra-PTS-AhS Reductase Allergy Unknown myalgia Verified 05/17/25 08:45 Inhibitor (Okrkfer-Iuj-Cud Reductase Inhibitor) prednisone Allergy Unknown Verified 05/17/25 08:45 mold and dustmites Allergy Unknown unknown Uncoded 11/19/24 13:09 Review of Systems Constitutional: Constitutional: Reports as per HPI PMFSH Past Medical History Medical History Elevated blood sugar Pericardial effusion Type 2 diabetes mellitus with hyperglycemia Vitamin D deficiency Fatty liver Asthma Erectile dysfunction Esophagitis Gout Hypothyroidism HTN (hypertension) CKD (chronic kidney disease) Chronic atrial fibrillation RBBB Orthostatic hypotension Surgical History History of thumb surgery Family History Family History Father CAD (coronary artery disease) Mother Stroke Family/Other Stroke Other No family history of cancer Social History Social History Household Members: Spouse Housing: House Are you a primary critical care physician to a significant other at home: No Do you presently have visiting nurse or other home services: No Alcohol intake: current Alcohol intake frequency: holidays/special occasions only Alcohol type: wine Patient Tobacco Use Status: Never used Tobacco Smoked in Last 30 Days: No e-Cigarette/Vaping Use: Never Used Second Hand Smoke Exposure: No Use of substances other than those prescribed or required for medical reasons: No Advance Directives: Yes Advance Directives on File: Yes Advance Directives Date on File: 11/20/21 service: No Current occupational status: retired Cognitive needs: No Hearing needs: Yes Vision needs: Yes (glasses) Physical Exam Vital Signs: Vital Signs: Last Vital Signs Temp 97.9 F 05/17/25 12:11 Pulse 82 05/17/25 12:11 Resp 18 05/17/25 12:11 BP 160/83 H 05/17/25 12:11 Pulse Ox 99 05/17/25 12:11 O2 Del Method Room Air 05/17/25 12:11 BMI result Body Mass Index 23.8 Const: Other: * Gen: ?Overall well-appearing patient * Resp: ?No wheezing rales rhonchi no stridor moving air well * Abd: ?Bowel sounds are present, no tenderness no rebound no rigidity, no CVA tenderness * Skin: Warm, dry, intact, * Neuro: ?Alert and oriented x3, moving upper and lower extremities symmetrically, no obvious facial asymmetry noted Medications Administered Discontinued Medications Generic Name Dose Route Start Last Admin Trade Name Freq PRN Reason Stop Dose Admin Cephalexin HCl 1,000 mg 05/17/25 11:42 05/17/25 12:08 Cephalexin 500 Mg Capsule PO 05/17/25 11:43 1,000 mg ONCE ONE Administration Medical Decision Making Medical Decision Making [facility] Narrative: Patient presenting with dysuria, urinary frequency, postvoid residual volume was 237 cc, Wilkins catheter was obtained, urinalysis positive for infection, he is otherwise well-appearing, no fevers no chills no flank pain nothing else to suspect pyelonephritis or systemic infection did not feel further blood work is indicated, he did well with the Wilkins catheter I loaded him with the antibiotics he will follow up with his PCP he has not appointment coming up soon. Differential Diagnosis Differential Diagnoses: The differential diagnosis associated with the presentat ion includes (UTI, pyelonephritis, XENIA, BPH, hemorrhagic cystitis) Admission/Observation Consideration of admission/observation: Escalation of care including admission/observation considered Lab Data Labs: Lab Results 05/17/25 Range/Units 08:56 Urine Color Yellow Urine Appearance Clear Urine pH 5.5 (5.0-9.0) Ur Specific [place] 1.010 (1.005-1.025) Urine Protein 30 (1+) H (Neg-Trace) mg/dL Urine Glucose (UA) 500 H (Negative) mg/dL Urine Ketones Negative (Negative) mg/dL Urine Blood Moderate (2+) H (Negative) Urine Nitrite Negative (Negative) Ur Leukocyte Esterase Large (3+) H (Negative) Urine RBC 3-5 H (0-2) /HPF Urine WBC >50 H (0-5) /HPF Ur Squamous Epith Cells 0-2 (0-2) /HPF Urine Bacteria 2+ (None Seen) Hyaline Casts 0-2 (0-2) /LPF Independent Historian Clinical information obtained from an independent historian. History obtained from or confirmed by: Spouse Prescription Management I considered prescription management with: Antibiotic Chronic Conditions Patient?s care impacted by: Diabetes Discharge Plan Discharge Clinical Impression: Acute UTI, Acute urinary retention Patient Disposition: Home, Self-Care Instructions: Urinary Retention in Men (ED), How to Change a Catheter Drainage Bag (DC) Additional Instructions: Evaluated with dysuria, urinary frequency noted to have urinary retention, Wilkins catheter was placed, because is urinary tract infection, antibiotics for the day given in ED, starting tomorrow continue with cephalexin 500 mg twice a day and please follow up with your PCP at some point this is going to be a trial to see if you are able to urinate without Wilkins catheter once your infection is under control, should you have any other issues or concerns spiking fevers, nausea or vomiting, back pain with chills or any other concerns come back to the ER. Prescriptions: New cephalexin 500 mg capsule 500 mg PO BID 6 Days Qty: 12 0RF No Action metoprolol succinate 100 mg tablet extended release 24 hr 100 mg PO BID Qty: 180 3RF levothyroxine 50 mcg tablet 50 mcg PO QAM 90 Days Qty: 90 3RF ezetimibe [Zetia] 10 mg tablet 10 mg PO DAILY Qty: 90 2RF Eliquis 5 mg tablet 5 mg PO BID Qty: 180 3RF omeprazole 20 mg capsule,delayed release(DR/EC) 20 mg PO DAILY@0630 Qty: 90 0RF allopurinol 100 mg tablet 200 mg PO DAILY Qty: 180 4RF fluoxetine 10 mg capsule 10 mg PO DAILY Qty: 90 2RF fluticasone propionate 50 mcg/actuation [place],Suspension 1 spray INTRANASAL BID PRN (Reason: Allergy Symptoms) Rx Instructions: administer into each nostril psyllium husk [Metamucil] 0.4 gram Capsule 0.8 g PO DAILY empagliflozin 10 mg tablet 10 mg PO DAILY Qty: 90 2RF Referrals: Po,Parth Buchanan MD [Primary Care Provider, Internal Medicine] Clinical Impression: Acute UTI; Acute urinary retention Interventions: ED Discharge Assessment Last Done: 05/17/25 12:11 Discharge Date/Time: 05/17/25 12:11 Print Language: Faroese
[2025-05-17 12:11] VITALS: BP 160/83; PULSE 82; RESP 18; TEMP 36.6; O2SAT 99
== END 2025-05-17 12:11 | disposition home or self-care (01) ==
PROVIDERS: Emergency Provider Emergency Medicine; PCP Internal Medicine
DX: N39.0 Urinary tract infection, site not specified (principal); R33.9 Retention of urine, unspecified; R30.0 Dysuria; R35.0 Frequency of micturition; E11.65 Type 2 diabetes mellitus with hyperglycemia; E55.9 Vitamin D deficiency, unspecified; K76.0 Fatty (change of) liver, not elsewhere classified; K20.90 Esophagitis, unspecified without bleeding; M10.9 Gout, unspecified; E03.9 Hypothyroidism, unspecified; I12.9 Hypertensive chronic kidney disease with stage 1 through stage 4 chronic kidney disease, or unspecified chronic kidney disease; N18.9 Chronic kidney disease, unspecified; I48.20 Chronic atrial fibrillation, unspecified; I45.10 Unspecified right bundle-branch block; I95.1 Orthostatic hypotension; Z79.01 Long term (current) use of anticoagulants
CPT/HCPCS: 51702; 81001; 87086; 99283; 99285

== ENCOUNTER 2025-05-22 12:54 | Outpatient (AMB) | payer MEDICARE, SELFPAY ==
[2025-05-22 13:13] VITALS: BP 134/68; PULSE 90; O2SAT 97; BMI 23.9
--- NOTE | 2025-05-22 13:13 | AM.OFFVISMDC ---
Intake Vital Signs 05/22/25 13:13 Height 5 ft 6 in Weight 148 lb BMI 23.9 BP 134/68 Blood Pressure Location Rt brachial Position Sitting Pulse 90 Pulse Source Pulse Oximeter Pulse Oximetry (%) 97 Oxygen Delivery Method Room Air Intake Visit Reasons: AWV G0438 Allergies lisinopril Allergy (Unknown, Verified 05/22/25 13:14) sob Ijgrylb-LIM-FzK Reductase Inhibitor (Hxqwjgq-Rtn-Ben Reductase Inhibitor) Allergy (Unknown, Verified 05/22/25 13:14) myalgia prednisone Allergy (Verified 05/22/25 13:14) Unknown mold and dustmites Allergy (Unknown, Uncoded 05/22/25 13:14) unknown Medication List - Last Reconciled 05/22/25 by Parth Rajan MD allopurinol 200 mg (2 x 100 mg) PO DAILY apixaban (Eliquis) 5 mg PO BID cephalexin 500 mg PO BID 6 days diphenhydramine HCl (Benadryl) 25 mg PO BEDTIME PRN empagliflozin 10 mg PO DAILY ezetimibe (Zetia) 10 mg PO DAILY fluoxetine 10 mg PO DAILY fluticasone propionate 50 mcg/actuation 1 spray intranasal BID PRN levothyroxine 50 mcg PO QAM 90 days metoprolol succinate ER 100 mg PO BID omeprazole 20 mg PO DAILY@0630 psyllium husk (Metamucil) 0.8 grams PO DAILY HPI AWV G0438 HPI Details [place] of care: Nephrology Dr. Patricio, gastroenterology Dr. Caballero Hematology-Oncology Dr. Fountain cardiology [facility] infectious diseaseDr. Tod [facility] Medical History Elevated blood sugar Pericardial effusion Type 2 diabetes mellitus with hyperglycemia Vitamin D deficiency Fatty liver Asthma Erectile dysfunction Esophagitis Gout Hypothyroidism HTN (hypertension) CKD (chronic kidney disease) Chronic atrial fibrillation RBBB Orthostatic hypotension Surgical History History of thumb surgery Family History Father CAD (coronary artery disease) Mother Stroke Family/Other Stroke Other No family history of cancer Social History Household Members: Spouse Housing: House Are you a primary infant childcare provider to a significant other at home: No Do you presently have visiting nurse or other home services: No Alcohol intake: current Alcohol intake frequency: holidays/special occasions only Alcohol type: wine Patient Tobacco Use Status: Never used Tobacco e-Cigarette/Vaping Use: Never Used Second Hand Smoke Exposure: No Advance Directives Date on File: 11/20/21 service: No Current occupational status: retired Cognitive needs: No Hearing needs: Yes Vision needs: Yes (glasses) Questionnaire Medicare Wellness Checkup [age] What gender do you identify with?: male During the past 4 weeks, how much have you been bothered by emotional problems such as feeling anxious, depressed, irritable, sad or downhearted, and blue?: not at all During the past 4 weeks, has your physical & emotional health limited your social activities with family, friends, neighbors, or groups?: slightly During the past 4 weeks, how much bodily pain have you generally had?: very mild pain During the past 4 weeks, was someone available to help you if you needed & wanted help?: yes, as much as I wanted During the past 4 weeks, what was the hardest physical activity you could do for at least 2 minutes?: moderate Can you get to places out of walking distance without help? (For eg., can you travel alone on buses, taxis or drive your car?): No Can you go shopping for groceries or clothes without someone's help?: No Can you prepare your own meals?: Yes Can you do your housework without help?: Yes Because of any health problems, do you need the help of another person with your personal care needs such as eating, bathing, dressing or getting around the house?: No Can you handle your own money without help?: Yes During the past 4 weeks, how would you rate your health in general?: good During the past 4 weeks how have things been going for you?: good & bad parts about equal Are you having difficulties driving your car?: not applicable, I don't use a car Do you always fasten your seat belt when you are in a car?: yes, usually During past 4 weeks, have you been bothered by the following: never: Falling or dizzy when standing up, Sexual problems?, Trouble eating well? and Problems using the telephone? and seldom: Teeth or denture problems? and Tiredness or fatigue? Have you fallen 2 or more times in the past year?: No Are you afraid of falling?: No Are you a smoker?: no During the past 4 weeks, how many drinks of wine, beer, or other alcoholic beverages did you have?: 1 drink or less per week Do you exercise for about 20 minutes 3 or more times a week?: no, I usually do not exercise this much Have you been given information to help with the following?: yes: Hazards in your house that might hurt you? and yes: Keeping track of your medications? How often do you have trouble taking medicines the way you have been told to take them?: I always take medicine as prescribed How confident are you that you can control & manage most of your health problems?: very confident What is your race?: White PHQ-9 Over the last 2 weeks, how often have you been bothered by any of the following problems? 1. Little interest or pleasure in doing things: not at all 2. Feeling down, depressed, or hopeless: not at all 3. Trouble falling or staying asleep, or sleeping too much: not at all 4. Feeling tired or having little energy: not at all 5. Poor appetite or overeating: not at all 6. Feeling bad about yourself - or that you are a failure or have let yourself or your family down: not at all 7. Trouble concentrating on things, such as reading the newspaper or watching television: not at all 8. Moving or speaking so slowly that other people could have noticed. Or the opposite - being so fidgety or restless that you have been moving around a lot more than usual: not at all 9. Thoughts that you would be better off or of hurting yourself in some way: not at all Total score: 0 Depression Screening Interpretation: Negative Depression Screening Done: Yes Source: Developed by Drs. Adilson Judd, Frances Feliciano, Tye Bellamy and colleagues, with an educational mona from [employer]. Review of Systems Const Denies poor appetite and Denies weakness Eyes Denies no additional complaints ENT Reports Normal hearing present, Denies dizziness, Denies nasal congestion, Denies tinnitus and Denies sore throat Card Denies chest pain, Denies syncope, Denies rapid heart rate and Denies dyspnea Resp Denies cough and Denies dyspnea GI Denies change in stool character, Reports constipation, Denies diarrhea, Denies nausea and Denies vomiting Denies dysuria and Denies urinary frequency Neuro Reports Normal hearing present, Denies confusion, Denies dizziness, Denies syncope and Denies weakness Psych Denies confusion Physical Exam Vital Signs: Last Vital Signs Pulse 90 05/22/25 13:13 BP 134/68 05/22/25 13:13 Pulse Ox 97 05/22/25 13:13 Oxygen Delivery Method Room Air 05/22/25 13:13 BMI result Body Mass Index 23.9 Const General: No confusion Orientation/consciousness: No confusion HEENT Head: Yes normocephalic Ears: external ears normal and TM's normal bilaterally Face and sinus: Yes normal facial exam Mouth: moist mucous membranes Throat: Yes tonsils normal Eyes Conjunctivae: conjunctivae normal Pupils: Equal, round and reactive pupils present and Pupil accommodation reflex normal Direct Ophthalmoscopy: normal light reflex Neck Neck: No lymphadenopathy Thyroid: Thyroid normal Chest Chest palpation & inspection: normal inspection of the chest Resp Effort & Inspection: normal respiratory effort and no audible wheezes Auscultation: clear to auscultation bilaterally, no crackles, no wheezes and lung sounds not diminished Cardio Rate: regular rate Rhythm: regular rhythm Peripheral pulses: radial pulses present and dorsalis pedis present GI Other: guiac negative , mild prostate enlargement pedal pulse weak, and pin prick good Palpation (GI): no masses Auscultation: normal bowel sounds and normoactive bowel sounds Rectal Exam - Male: Yes deferred Other: Patient has the urinary catheter attached right now Skin General skin exam: no rashes or lesions noted Rashes: no rashes Neuro General: No confusion Cranial nerves: Yes Equal, round and reactive pupils present and Yes Normal hearing present Cognition (Neuro): normal cognition Gait exam (Neuro): Normal gait present Motor exam (neuro): 5/5 motor strength present throughout Deep tendon reflexes (DTR's): Right brachioradialis reflex intensity grade: 2+, Left brachioradialis reflex intensity grade: 2+, Right patellar reflex intensity grade: 2+ and Left patellar reflex intensity grade: 2+ Extrem General: No edema Assessment & Plan Assessment & Plan (1) Medicare annual wellness visit, subsequent: Code(s): Z00.00 - Encounter for general adult medical examination without abnormal findings Plan: Patient is advised to eat healthy, keep well hydrated, keep active and have adequate sleep. (2) Chronic atrial fibrillation: Code(s): I48.20 - Chronic atrial fibrillation, unspecified Plan: Continue with anticoagulation with Eliquis (3) HTN (hypertension): Code(s): I10 - Essential (primary) hypertension Qualifiers: Hypertension type: unspecified Qualified Code(s): I10 - Essential (primary) hypertension Plan: Continue with blood pressure medication. Decrease salt intake and exercise on metoprolol 100 mg twice a day (4) Hypercholesterolemia: Comment: Statin intolerant Code(s): E78.00 - Pure hypercholesterolemia, unspecified Plan: Avoid fried foods, chicken skin, eggs, butter margarine, pastries and meat. Be it pork or beef they have a lot of cholesterol LDL goal of less than 100 and triglyceride of less than 150. 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 Hemoglobin A1c goal of less than 7.0. Patient on Jardiance at 10 mg once a day (6) Hypothyroidism: Code(s): E03.9 - Hypothyroidism, unspecified Plan: Continue with thyroid medication (7) CKD stage 3a, GFR 45-59 ml/min: Code(s): N18.31 - Chronic kidney disease, stage 3a Plan: Keep well hydrated avoid NSAIDs (8) CVA (cerebral vascular accident): Comment: October 2021 mild left hemiparesis an MRI of brain revealed an acute right subcortical ischemic infarction Code(s): I63.9 - Cerebral infarction, unspecified Plan: Control the cholesterol, weight, blood pressure, diabetes patient is on Eliquis anticoagulation (9) UTI (urinary tract infection): Code(s): N39.0 - Urinary tract infection, site not specified Plan: Discussed with the patient the problem of have UTI. Will do an ultrasound of the kidney and bladder (10) GINO (generalized anxiety disorder): Code(s): F41.1 - Generalized anxiety disorder Plan: On fluoxetine discussed about counseling and therapy. Family feels that this is all because of the Jardiance. Declined any further workup for now Plan History of Present Illness The patient is a 74-year-old male presenting for an annual wellness visit. The patient has a history of atrial fibrillation managed with Eliquis, and a past stroke and cardiomyopathy under regular monitoring. Hypertension and hypercholesterolemia are managed with Zetia due to statin intolerance, with LDL at 134 mg/dL and triglycerides at 0.90 mmol/L. Generalized anxiety disorder and hypothyroidism are treated with fluoxetine and levothyroxine, respectively. Diabetes mellitus is managed with Jardiance, with a hemoglobin A1c of 7.3%. A recent urinary tract infection was treated with cephalexin, and a catheter is in place due to retention issues. Chronic kidney disease stage 3A is managed with nephrology follow-up, and NSAIDs are avoided to prevent renal impairment. 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 Elevated liver function tests have been noted, with suspected fatty liver disease. Health Maintenance - Colonoscopy scheduled for May 2025 for Moctezuma's esophagus monitoring - Flu vaccination received approximately two weeks ago - Tetanus and pneumonia vaccinations are up to date - Shingles vaccination completed last month Social History - Consumes fruits and vegetables regularly, with a preference for fresh produce from local markets - Uses Benadryl weekly for allergies, which also aids in sleep Review of Systems - Cardiovascular: Denies chest pain, reports irregular heart rhythm - Respiratory: Denies shortness of breath, cough, or wheezing - Gastrointestinal: Denies nausea, vomiting, or difficulty swallowing - Neurological: Denies dizziness or syncope, reports no recent falls - Genitourinary: Reports urinary retention, currently with a catheter in place - Musculoskeletal: Denies joint pain or stiffness - Dermatological: Denies rashes or skin changes Physical Exam General: Cooperative, healthy appearing, comfortable, no acute distress and well developed Orientation: Patient oriented x3 Limitations: No limitations Head: Normal to inspection Ears: Hearing not good, has hearing aids but not worn today Nose: Normal external nose present Face and sinus: Normal facial exam Eyes: Appearance normal, both eyes and all related structures Neck: Normal visual inspection and Yes full ROM Respiratory: Normal respiratory effort and able to speak in complete sentences. Clear to auscultation bilaterally Cardiovascular: Irregular heart rhythm due to atrial fibrillation GI: Normal to inspection. Soft to palpation and nontender Skin: No rashes or lesions noted Neuro: Patient oriented x3 Extremities: Normal to inspection Results - Labs: Hemoglobin A1c 7.3%, LDL cholesterol 134 mg/dL, triglycerides 0.90 mmol/L, elevated liver function tests noted - Tests: Scheduled colonoscopy for Moctezuma's esophagus in May 2025 Plan Patient was informed and verbally consented to the use of an ambient scribe for clinic note documentation during this visit. 1. Atrial Fibrillation Atrial fibrillation is managed with Eliquis, with regular monitoring to prevent complications. 2. Diabetes Mellitus Diabetes is managed with Jardiance and dietary modifications, aiming for an A1c below 7.0%. 3. Chronic Kidney Disease Chronic kidney disease is managed with nephrology follow-up and NSAID avoidance, with regular renal function monitoring. 4. Hypercholesterolemia Hypercholesterolemia is managed with Zetia, aiming for LDL below 100 mg/dL and triglycerides below 150 mg/dL. 5. Hypertension Hypertension is managed with metoprolol, with regular blood pressure monitoring. 6. Moctezuma's Esophagus Moctezuma's esophagus is monitored with scheduled colonoscopies, next in May 2025. 7. Urinary Tract Infection The urinary tract infection is treated with cephalexin, with a catheter in place and an ultrasound planned. Discussion Notes During the visit, I discussed the management of atrial fibrillation with Eliquis and the importance of regular monitoring to prevent complications such as stroke. We reviewed the diabetes management plan, emphasizing the goal of maintaining an A1c below 7.0% with Jardiance and dietary modifications. The patient was advised to avoid NSAIDs to prevent further renal impairment due to chronic kidney disease. We discussed the management of hypercholesterolemia with Zetia, aiming for LDL cholesterol below 100 mg/dL. The plan for hypertension management with metoprolol was reviewed, ensuring regular blood pressure monitoring. We also discussed the upcoming colonoscopy for Moctezuma's esophagus monitoring and the treatment plan for the recent urinary tract infection. Patient Instructions - Continue taking Eliquis as prescribed for atrial fibrillation. - Monitor blood glucose levels regularly and aim for an A1c below 7.0%. - Avoid NSAIDs to protect kidney function. - Take Zetia as prescribed and aim for LDL cholesterol below 100 mg/dL. - Monitor blood pressure regularly and continue metoprolol as prescribed. - Attend the scheduled colonoscopy in May 2025. - Follow up with nephrology as scheduled. - Complete the course of cephalexin for the urinary tract infection. Quality Reporting (2019) Depression/Bipolar (159/160/161/177) PHQ-9: Total score: 0 Coding Level of Care Code Medicare Subsequent (G0439) Diagnoses Medicare annual wellness visit, subsequent Z00.00 Chronic atrial fibrillation I48.20 HTN (hypertension) I10 Hypertension type: unspecified Hypercholesterolemia E78.00 Type 2 diabetes mellitus with hyperglycemia, without long-term current use of insulin E11.65 Diabetes mellitus senior living insulin use: without terminal operations manager use Hypothyroidism E03.9 CKD stage 3a, GFR 45-59 ml/min N18.31 CVA (cerebral vascular accident) I63.9 UTI (urinary tract infection) N39.0 GINO (generalized anxiety disorder) F41.1
== END 2025-05-22 14:05 | disposition home or self-care (01) ==
LOC: HO.HMCH 12:55
PROVIDERS: PCP Internal Medicine; Visit Provider Internal Medicine
DX: Z00.00 Encounter for general adult medical examination without abnormal findings (principal); I12.9 Hypertensive chronic kidney disease with stage 1 through stage 4 chronic kidney disease, or unspecified chronic kidney disease; I48.20 Chronic atrial fibrillation, unspecified; E11.65 Type 2 diabetes mellitus with hyperglycemia; N18.31 Chronic kidney disease, stage 3a; I63.9 Cerebral infarction, unspecified; E78.00 Pure hypercholesterolemia, unspecified; E03.9 Hypothyroidism, unspecified; N39.0 Urinary tract infection, site not specified; F41.1 Generalized anxiety disorder

== ENCOUNTER 2025-05-30 09:09 | Outpatient (REF) | payer MEDICARE, SELFPAY ==
[2025-05-30 10:08] LABS: Anion Gap 15 (12-20); Blood Urea Nitrogen 28 mg/dL (9-16); Calcium 10.1 mg/dL (8.4-10.2); Carbon Dioxide 24 mmol/L (22-29); Chloride 105 mmol/L (96-108); Estimated Glomerular Filt Rate 51; Potassium 4.6 mmol/L (3.3-5.1); Sodium 139 mmol/L (135-145)
== END 2025-05-30 09:10 | disposition home or self-care (01) ==
LOC: HO.LAB 09:09
PROVIDERS: Absent Provider Nurse Practitioner Family; PCP Internal Medicine; Visit Provider Internal Medicine Nephrology
DX: I12.9 Hypertensive chronic kidney disease with stage 1 through stage 4 chronic kidney disease, or unspecified chronic kidney disease (principal); E11.22 Type 2 diabetes mellitus with diabetic chronic kidney disease; N18.31 Chronic kidney disease, stage 3a; E11.65 Type 2 diabetes mellitus with hyperglycemia
CPT/HCPCS: 36415; 80051; 82310; 82565; 84520

== ENCOUNTER 2025-06-06 06:15 | Day surgery (SDC) | payer MEDICARE, SELFPAY ==
--- OUTSIDE RECORDS SUMMARY | 2025-04-25 09:44 | XMS_ITS | Patient Health Record ---
Author Organization [facility] Address [address] [place] [address] Care Team Providers Care Media Monitor Name Role Phone Po Parth LONG Primary Care Provider Adilson Torres [phone] Allergies Allergen (clinical drug ingredient) Drug/Non Drug [...] Problem Status W/U Status Risk Notes Problem 93658988 Rectal bleeding (K62.5) Active confirmed Problem 768634608 Encounter for screening for malignant neoplasm of colon (Z12.11) Active confirmed Problem 872724708 History of adenomatous polyp of colon (Z86.010) Active confirmed Problem 972192784 Irritable bowel syndrome with diarrhea (K58.0) Active confirmed Problem 296328390 Reflux esophagitis (K21.0) Active confirmed Problem 51872207 Diarrhea, unspecified type (R19.7) Active confirmed Problem 019532998 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 We shall clear that with his collateral analyst. The procedures will be done with monitored [...] medication. We shall clear that with his collateral analyst. The procedures will be done with monitored [...] medication. We shall clear that with his collateral analyst. The procedures will be done with monitored [...] medication. We shall clear that with his collateral analyst. The procedures will be done with monitored [...] Name:Adilson Shi Caballero , 05/29/2025 09:30:00 AM, [address] [place] [address] , [place], [place], [phone], Insurance Providers Payer Name Payer Address Payer Phone Subscriber Number Group Number Insured Name Patient Relationship to Insured Coverage Start Date Coverage End Date MEDICARE OF [place] [address] [place] [address] [id number] ALTHEA HERNANDEZ Self - patient is the insured MED[employer] ATT[employer] CLAIMS [address] [place] [address] [id number] ALTHEA HERNANDEZ Self - patient is the [...]
--- OUTSIDE RECORDS SUMMARY | 2025-04-25 09:44 | XMS_ITS | Clinical Summary ---
Author Organization [facility] Address [address] [place] [address] Phone Care Team Providers Care Press And Blow Machine Tender Name Role Phone Parth Rajan MD Primary Care Provider [phone] Allergies Active Allergy Reactions Criticality Noted Date [...] patient's age to complete this topic Insurance [facility] Medicare [facility] Medicare Care Teams Press And Blow Machine Tender Relationship Specialty Start Date End Date Parth Rajan MD [address] [place] [address] PCP - General 09/01/20
[2025-05-27 12:35] VITALS: BMI 24.4
--- NOTE | 2025-06-04 10:31 | P.CONAN_ITS ---
Documented by User: Salima Keith NP 06/04/25 10:37 HPI - Anesthesia Eval Consult details Narrative: 74yo M for Upper Endoscopy and Colonoscopy Follows [facility] renal for CKD stage 3 from vascular disease. Stable at 04/2025 office visit with creat baseline, 1.28 Follows [facility] Cardiology for Afib (eliquis), orthostatic hypotension. Stable at 06/2024 office visit for 1 year routine f/u Anesthesia Pre-Procedure Meds Is the patient on any of the following meds?: SGLT2 Inhib PMFSH Active Problems Active Problems: All Active Problems UTI (urinary tract infection) (Acute) Medicare annual wellness visit, subsequent (Acute) Colon cancer screening (Acute) CKD stage 3a, GFR 45-59 ml/min (Acute) Mediastinal adenopathy (Acute) GINO (generalized anxiety disorder) (Acute) Hypercholesterolemia (Acute) Hearing deficit (Acute) Cardiomyopathy (Acute) CVA (cerebral vascular accident) (Acute) Type 2 diabetes mellitus with hyperglycemia (Acute) Hypothyroidism (Acute) HTN (hypertension) (Acute) Chronic atrial fibrillation (Acute) Orthostatic hypotension (Acute) RBBB (Acute) Past Medical History Medical History GERD (gastroesophageal reflux disease) Moctezuma's esophagus Elevated blood sugar Pericardial effusion Type 2 diabetes mellitus with hyperglycemia Vitamin D deficiency Fatty liver Asthma Erectile dysfunction Esophagitis Gout Hypothyroidism HTN (hypertension) CKD (chronic kidney disease) Chronic atrial fibrillation RBBB Orthostatic hypotension Family History Family History Father CAD (coronary artery disease) Mother Stroke Family/Other Stroke Other No family history of cancer Surgical History Surgical History History of esophagogastroduodenoscopy (EGD) (2019) Hx of colonoscopy (2019) History of thumb surgery Social History Social History Household Members: Spouse Housing: House Are you a primary manager progressive care to a significant other at home: No Do you presently have visiting nurse or other home services: No Alcohol intake: current Alcohol intake frequency: holidays/special occasions only Alcohol type: wine Patient Tobacco Use Status: Never used Tobacco e-Cigarette/Vaping Use: Never Used Second Hand Smoke Exposure: No Use of substances other than those prescribed or required for medical reasons: No Have you been hit, kicked, punched, or otherwise hurt by someone within the past year? If so, by whom?: No Are you DNR?: No Advance Directives: No Advance Directives Information Provided: Yes Advance Directives Date on File: 11/20/21 service: No Current occupational status: retired Cognitive needs: No Hearing needs: Yes Vision needs: Yes (glasses) Meds Allergies Allergy/AdvReac Type Severity Reaction Status Date / Time lisinopril Allergy Severe sob Verified 06/06/25 06:29 Mgtgoxe-HUV-MwO Reductase Allergy Intermediate myalgia Verified 06/06/25 06:29 Inhibitor (Jcqknke-Yvs-Xeg Reductase Inhibitor) prednisone Allergy Mild Agitated Verified 06/06/25 06:29 mold and dustmites Allergy Unknown unknown Uncoded 06/06/25 06:29 Home Medications ?Medication ?Instructions ?Recorded ?Confirmed ?Last Taken ?Type fluticasone propionate 50 1 spray intranasal BID PRN A llergy 11/15/21 06/06/25 Unknown History mcg/actuation nasal Symptoms spray,suspension psyllium husk 0.4 gram capsule 0.8 g PO DAILY 11/15/21 06/06/25 11/14/21 History (Metamucil) diphenhydramine HCl 25 mg capsule 25 mg PO BEDTIME PRN Sleep 05/22/25 06/06/25 Unknown History (Benadryl) Exam Height,Weight and Vital Signs: Height 5 ft 6 in Weight 68.492 kg Narrative Narrative: EKG 12/2023 atypical atrial flutter with variable conduction with bifascicular block ECHO 08/2023 Conclusions: - 1. Normal LV ejection fraction 55-60% 2. Mild biatrial enlargement 3. Mild mitral regurgitation 4. Normal RV systolic pressure 5. No pericardial effusion Assessment and Plan Assessment Anesthesia Assessment: Chart Reviewed Documented by User: Eli Camacho MD 06/06/25 07:28 PMFSH Past Medical History Medical History GERD (gastroesophageal reflux disease) Moctezuma's esophagus Elevated blood sugar Pericardial effusion Type 2 diabetes mellitus with hyperglycemia Vitamin D deficiency Fatty liver Asthma Erectile dysfunction Esophagitis Gout Hypothyroidism HTN (hypertension) CKD (chronic kidney disease) Chronic atrial fibrillation RBBB Orthostatic hypotension Family History Family History Father CAD (coronary artery disease) Mother Stroke Family/Other Stroke Other No family history of cancer Family history of problems with anesthesia: No Surgical History Surgical History History of esophagogastroduodenoscopy (EGD) (2019) Hx of colonoscopy (2019) History of thumb surgery History of Problems with Anesthesia: No Social History Social History Household Members: Spouse Housing: House Are you a primary manager progressive care to a significant other at home: No Do you presently have visiting nurse or other home services: No Alcohol intake: current Alcohol intake frequency: holidays/special occasions only Alcohol type: wine Patient Tobacco Use Status: Never used Tobacco e-Cigarette/Vaping Use: Never Used Second Hand Smoke Exposure: No Use of substances other than those prescribed or required for medical reasons: No Have you been hit, kicked, punched, or otherwise hurt by someone within the past year? If so, by whom?: No Are you DNR?: No Advance Directives: No Advance Directives Information Provided: Yes Advance Directives Date on File: 11/20/21 service: No Current occupational status: retired Cognitive needs: No Hearing needs: Yes Vision needs: Yes (glasses) Meds Allergies Allergy/AdvReac Type Severity Reaction Status Date / Time lisinopril Allergy Severe sob Verified 06/06/25 06:29 Hsymlsy-EVN-YrM Reductase Allergy Intermediate myalgia Verified 06/06/25 06:29 Inhibitor (Tujpthm-Vvs-Zfm Reductase Inhibitor) prednisone Allergy Mild Agitated Verified 06/06/25 06:29 mold and dustmites Allergy Unknown unknown Uncoded 06/06/25 06:29 Home Medications ?Medication ?Instructions ?Recorded ?Confirmed ?Last Taken ?Type fluticasone propionate 50 1 spray intranasal BID PRN A llergy 11/15/21 06/06/25 Unknown History mcg/actuation nasal Symptoms spray,suspension psyllium husk 0.4 gram capsule 0.8 g PO DAILY 11/15/21 06/06/25 11/14/21 History (Metamucil) diphenhydramine HCl 25 mg capsule 25 mg PO BEDTIME PRN Sleep 05/22/25 06/06/25 Unknown History (Benadryl) Exam Airway Mallampati Class: II (poor dentition, multiple broken teeth, denies anything loose) TM Dist: >3cm Neck ROM: Full Heart: irreg Lungs: cta Assessment and Plan Assessment Anesthesia Assessment: Anesthesia Plan Discussed Final Anesthetic Review Family History of Problems with Anesthesia: No History of Problems with Anesthesia: No NPO: Yes ASA Class: III Final Preanesthetic Review: No Changes in Pt Med Stat, Meds/Allgs Chart Reviewed, Consent Obtained/Reviewed and Anes Risks/Benef Reviewed Patient Risk: Intermediate Procedure Risk: Intermediate Anesthetic Plan Anesthetic Plan: MAC: Disposition: Standard PACU
[2025-06-06 06:34] VITALS: BMI 23.4
[2025-06-06 06:46] VITALS: BP 138/79; PULSE 75; RESP 16; TEMP 36.2; O2SAT 99
[2025-06-06] MEDS: Lactated Ringers 1,000 ML 100 ML IVCONT (06:48)
[2025-06-06 06:55] LABS: Glucose, Whole Blood 176 mg/dL (60-115)
[2025-06-06 08:40] VITALS: BP 111/56; PULSE 74; RESP 16; TEMP 36.1; O2SAT 100
--- NOTE | 2025-06-06 08:49 | P.BOP_ITS ---
Brief Operative Note Date of Service: 06/06/25 Pre-op diagnosis: Moctezuma's, Screening Post-op diagnosis: other (Same, Hiatal hernia, Colon polyp) Procedure: EGD with bx, Colonoscopy to the cecum and TI with hot snare polypectomy x 1 with placement of 1 Resolution clip Surgeon: Adilson Caballero MD Anesthesia: MAC Was an Blue Line Trimmer used for this Procedure?: No Estimated blood loss (mL): 0 Pathology: other (A.Gastric antral polyp B. EG Junction at 38cm C. Transverse colon polyp) Condition: stable Disposition: PACU
[2025-06-06 08:55] VITALS: BP 123/60; PULSE 69; RESP 16; TEMP 36.1; O2SAT 99
--- NOTE | 2025-06-06 11:10 | OP_ITS ---
DATE OF SERVICE: 06/06/2025 SURGEON: Adilson Caballero MD INDICATIONS: The patient presents for evaluation of gastroesophageal reflux, Moctezuma esophagus, personal history of colon polyps, and colorectal cancer screening. Full consent was obtained from him for this, including risks of bleeding and perforation. PREOPERATIVE DIAGNOSIS: POSTOPERATIVE DIAGNOSIS: PROCEDURE PERFORMED: Esophagogastroduodenoscopy with biopsies, and colonoscopy to the cecum and terminal ileum with hot snare polypectomy x1 with placement of 1 resolution clip. ESTIMATED BLOOD LOSS: COMPLICATIONS: ANESTHESIA: Preop medication used, monitored anesthesia care. ASSISTANTS: SPECIMENS: PREOPERATIVE DIAGNOSES: Gastroesophageal reflux, Moctezuma's esophagus, colorectal cancer screening and personal history of colon polyps. POSTOPERATIVE DIAGNOSES: Gastroesophageal reflux, Moctezuma's esophagus, colorectal cancer screening and personal history of colon polyps. small hiatal hernia, gastric polyps, colon polyp, diverticulosis, and internal hemorrhoids. DESCRIPTION OF PROCEDURE: The patient was placed in the left lateral decubitus position. The Olympus video gastroscope was passed in the posterior oropharynx and upper esophagus under direct vision. The scope was passed slowly to the distal esophagus. The gastroesophageal junction appeared at 38 cm. This area was notable for some slight irregularity with areas of less than 1 cm of probable Moctezuma's mucosa. There was no evidence of any inflammation nor lesions. The scope entered the stomach, there was a small hiatal hernia. The scope was advanced to the pylorus and the duodenum was cannulated to the descending portion. The duodenum including the bulb appeared normal without mass or ulceration. The scope was withdrawn back to the stomach. Along the lesser curvature, was an approximately 6 mm benign-appearing polyp in the antrum that was biopsied twice. The remainder of the gastric antrum and body appeared normal with good peristalsis. The scope was retroflexed visualizing the proximal stomach carefully which appeared normal, without any sign of mass or ulceration. The scope was straightened and withdrawn back to the esophagus. Multiple biopsies were obtained at the EG junction at 38 cm. Proximal to that the esophageal mucosa appeared normal. The scope was withdrawn from the patient. He was turned around for colonoscopy. The digital rectal exam revealed no abnormalities. The [employer] video pediatric colonoscope was entered into the rectum and advanced easily to the cecum. Once in the cecum I did identify normal-appearing cecal pouch with appendiceal orifice and a normal-appearing ileocecal valve. The terminal ileum was cannulated and appeared normal. Scope was withdrawn back in the colon. The entire cecum and ileocecal valve appeared normal. The scope was slowly withdrawn assessing all mucosal surfaces carefully. Preparation was excellent. In the area of what appeared to be the proximal transverse colon was an approximately 10 to 12 mm grossly adenomatous flat, but raised polyp, which was removed by hot snare polypectomy and recovered by suction. The polypectomy site appeared clean, without any sign of residual polyp nor bleeding. A single resolution clip was applied to the polypectomy site with good deployment and good hemostasis. I did not visualize any other polyps, colitis, nor angiodysplasia. There was a moderate amount of sigmoid diverticulosis. In the rectum, scope was retroflexed visualizing internal hemorrhoids, but no other pathology. The rectal mucosa appeared normal. The scope was straightened and withdrawn the patient. He tolerated both procedures well and was returned to recovery area in stable condition. IMPRESSION: 1. Colon polyp. 2. Diverticulosis. 3. Internal hemorrhoids. 4. Hiatal hernia. 5. Changes consistent with Moctezuma's esophagus. 6. Gastric polyp. PLAN: The results of the pathology will be checked. Given relatively minimal findings on both procedures, I do not think he will need any further upper endoscopies or colonoscopies for screening purposes given his age and associated comorbidities. He was advised to continue his daily omeprazole. He was advised to resume his Eliquis on Tuesday, June 08. He was advised to stay off all aspirin and NSAIDs long-term on Eliquis. He will see me again as needed. This has been discussed in detail with his . MD IGOR Jeffrey/LEANN / [id number] MTDNori
== END 2025-06-06 09:22 | disposition home or self-care (01) ==
PROVIDERS: PCP Internal Medicine; Visit Provider Internal Medicine
PROC: (CPT 45385; principal; 2025-06-06 07:30)
DX: Z12.11 Encounter for screening for malignant neoplasm of colon (principal); Z86.0101 Personal history of adenomatous and serrated colon polyps; D12.3 Benign neoplasm of transverse colon; K57.30 Diverticulosis of large intestine without perforation or abscess without bleeding; K64.8 Other hemorrhoids; K58.0 Irritable bowel syndrome with diarrhea; K21.00 Gastro-esophageal reflux disease with esophagitis, without bleeding; K22.70 Barrett's esophagus without dysplasia; K31.7 Polyp of stomach and duodenum; K44.9 Diaphragmatic hernia without obstruction or gangrene; I10 Essential (primary) hypertension; I48.91 Unspecified atrial fibrillation; N28.9 Disorder of kidney and ureter, unspecified; E03.9 Hypothyroidism, unspecified; Z79.01 Long term (current) use of anticoagulants; Z79.899 Other long term (current) drug therapy; Z88.8 Allergy status to other drugs, medicaments and biological substances
CPT/HCPCS: 45385; 43239; 82947; 88305; 88313; 88342; J2003; J2704; J3010

== ENCOUNTER → 2025-07-11 09:47 | Outpatient (REF) | payer MEDICARE, SELFPAY ==
--- OUTSIDE RECORDS SUMMARY | 2025-05-29 03:30 | XMS_ITS ---
Author Organization [facility] Address [address] [place] [address] Care Team Providers Care Vehicle Modification Technician Name Role Phone Parth Rajan MD Primary Care Provider Adilson Torres [phone] REASON FOR VISIT aguirre's,reflux esophagitis,screening, hx polyps Encounters Encounter Location Date Provider [place] [facility] [place] [address] [place], [place] [id number] 05/29/2025 Adilson Caballero Plan Of Treatment No Information Progress Notes * ALTHEA TURPIN HDOB:1949 (74 yo M)Acc No.[id number]:05/29/2025 EGD and COL/MAC Patient: Odalis MCCARTHY ALTHEA Lilian Provider: Robbie Caballero MD :1950 A ge:74 Y S ex:Male Date:05/29/2025 Address:[address] [place], [place] [id number] Pcp:Parth Rajan MD Subjective: * Chief Complaints: * B arrett's,reflux esophagitis,screening, hx polyps * The named appointment provid er may or may not be the originator of this progress note, and it is not deemed complete until electronically signed by the appointment provider. Sign off status: Pending * Provider: Robbie Caballero MD Date: Generated for Samantha olmos/Yosvany/eTransmitting on: 09/10/2024 02:01 PM EST
--- OUTSIDE RECORDS SUMMARY | 2025-05-29 03:30 | XMS_ITS ---
Author Organization [facility] Address [address] [place] [address] Care Team Providers Care Registrar Nurses' Registry Name Role Phone Parth Rajan MD Primary Care Provider Adilson Torres [phone] REASON FOR VISIT aguirre's,reflux esophagitis,screening, hx polyps Encounters Encounter Location Date Provider Diagnosis [facility] [place] [address] [place], [place] [phone] 05/29/2025 Adilson Caballero Plan Of Treatment No Information Progress Notes * ALTHEA TURPIN HDOB:1949 (74 yo M)Acc No.[id number]:05/29/2025 EGD and COL/MAC Patient: Odalis MCCARTHY ALTHEA Lilian Provider: Robbie Caballero MD :1950 A ge:74 Y S ex:Male Date:05/29/2025 Address:[address] [place], [place] [address] Pcp:Parth Rajan MD Subjective: * Chief Complaints: [...]
--- OUTSIDE RECORDS SUMMARY | 2025-06-06 02:30 | XMS_ITS ---
Author Organization [facility] Address [address] [place] [address] Care Team Providers Care Convertible Power Shovel Operator Name Role Phone Parth Rajan MD Primary Care Provider Adilson Torres [phone] REASON FOR VISIT aguirre's,reflux esophagitis,screening, hx polyps Encounters Encounter Location Date Provider Diagnosis [facility] [place] [address] [place], [place] [phone] 06/06/2025 Adilson Caballero Plan Of Treatment No Information Progress Notes * ALTHEA TURPIN HDOB:1949 (74 yo M)Acc No.[id number]:06/06/2025 EGD and COL/MAC Patient: Odalis MCCARTHY ALTHEA Lilian Provider: Robbie Caballero MD :1950 A ge:74 Y S ex:Male Date:06/06/2025 Address:[address] [place], [place] [id number] Pcp:Parth Rajan MD Subjective: * Chief Complaints: [...] Date: Generated for Samantha olmos/Yosvany/eTransmitting on: 09/10/2024 02:02 PM EST
--- NOTE | 2025-07-11 09:50 | CA_ITS ---
Transthoracic Echocardiogram Patient (Last, First, Middle): Gabriele Harris H Gender: Male Date of : 1950 Age: 74 Procedure Date: 07/11/2025 Procedure Type: Transthoracic Echocardiogram Location: OP Height: 167.64 cm Weight: 66.68 kg BSA: 1.75 m2 Heart Rate: bpm BP: 134 / 68 mmHg Director Of Health Education: KADE Referring MD: Chas Gonzalez MD Symptoms: I48.20 - Chronic atrial fibrillation, unspecified Study Quality: Adequate Conclusions: - The left ventricular systolic function is mildly decreased. The visually estimated ejection fraction is between 45-50%. - No obvious valvular pathology seen on this study. Findings Left Ventricle Normal left ventricular cavity size. There is normal left ventricular wall thickness. The left ventricular systolic function is mildly decreased. The visually estimated ejection fraction is between 45-50%. There is mild global hypokinesis. Diastolic function is indeterminate on the basis of available data. Right Ventricle Normal right ventricular cavity size. There is mildly decreased right ventricular systolic function. Atria Both atria are normal in size. Aortic Valve There is a normal trileaflet aortic valve. There is no aortic valve stenosis. There is no aortic valve regurgitation. Mitral Valve The mitral valve appears normal. There is trace mitral valve regurgitation. There is no mitral valve stenosis. Pulmonic Valve The pulmonic valve is likely normal. Tricuspid Valve There is trace tricuspid valve regurgitation. There is no evidence of pulmonary hypertension. Great Vessels The asc aorta is normal in size. Venous The inferior vena cava is normal in size and collapses greater than 50% with inspiration. Pericardium/Pleural Possible small pericardial effusion versus pericardial fat. Prior Study Comparison Changes noted compared to prior study dated: 08/30/2023. LVEF slightly lower than previous study. Recommendations, Care & Conclusions No obvious valvular pathology seen on this study. Measurements 2D Linear Measurements IVSd: 0.82 0.6-0.9/0.6-1.0 cm LVIDd: 4.35 3.9-5.3/4.2-5.9 cm LVIDd Index: 2.49 2.4-3.2/2.2-3.1 cm/m2 LVIDs: 2.44 2.0-3.6 cm LVPWd: 0.93 0.7-1.1 cm LA Diam: 3.90 2.7-3.8/3.0-4.0 cm LAIDs Index: 2.23 1.5-2.3 cm/m2 LV Mass: 150.57 67-162/88-224 g LV Mass Index: 86.04 43-95/49-115 g/m2 LVOT Diam: 2.00 3.0+(-)1.3 cm 2D Systolic Function EF 4C: 48.20 >55% EF 2C: 37.80 >55% EF BiP: 42.50 >55% Mitral Valve MV Pk E: 0.62 MV Decel Time: 202.00 E'Lateral: 5.70 E'Medial: 3.71 E/E' Med: 16.70 E/E' Lat: 10.90 PHT: 59.00 MVA PHT: 3.73 Decel Morrison: 3.07 Aortic Valve AoV Pk Zelalem: 0.93 AoV Mn Zelalem: 0.79 AoV VTI: 0.22 AoV Pk Grad: 3.00 Aov Mn Grad: 3.00 TIGRE Cont.VTI: 1.53 LVOT LVOT Pk Zelalem: 0.57 LVOT Mn Zelalem: 0.40 LVOT VTI: 0.11 LVOT Pk Grad: 1.00 LVOT Mn Grad: 1.00 LVOT Diam: 2.00 LVOT Area: 3.14 Diastolic Function MV Pk E: 0.62 E'Medial: 3.71 E/E' Med: 16.70 E' Laterial: 5.70 E/E' Lat: 10.90 Right Ventricle TAPSE (mm): 14.60 TVS' Zelalem: 6.81 Tricuspid Valve RA Press: 3.00 Great Vessels Aorta Sinus of Valsalva: 3.20 2.0-3.5 cm Ao Asc: 3.30 2.1-3.4 cm Pulmonary Valve PV Pk Zelalem: 0.71 Peak PV Grad: 2.00 Updated in Other Vendor System with Status of Final Jabier Gilmore MD electronically signed on 07/11/2025 11:46:04 AM with status of Final
--- OUTSIDE RECORDS SUMMARY | 2025-07-11 14:01 | XMS_ITS | Patient Health Record ---
Author Organization [facility] Address [address] [place] [address] Care Team Providers Care Satellite Communications Operator Name Role Phone Po Parth LONG Primary Care Provider Adilson Torres [phone] Allergies Allergen (clinical drug ingredient) Drug/Non Drug Allergy documented on EMR Reaction Allergy Type Onset Date Status lisinopril Lisinopril Unknown Drug Allergy Activ e PredniSONE Unknown Drug Allergy Active Results Component Value Reference Range Flag Notes Pathology (Not yet reviewed by provider) Interpretation: Performing Lab:[facility], [address] [place] [phone] Notes/Report: Glucose, Whole Blood Reviewed date:06/10/2025 05:45:00 PM Interpretation: Performing Lab:[facility], [address] [place] [phone] Notes/Report: Glucose, Whole Blood 176 60-115 mg/dL H PA TER #: [id number] Reason For Referral No Information Medications Medication SIG (Take, Route, Frequency, Duration) Notes Start Date End Date Status Levothyroxine Sodium 50 MCG Tablet 1 tablet in the morning on an empty stomach Orally Once a day; Duration: 30 day(s) Active Metoprolol Succinate 100 MG Capsule ER 24 Hour Sprinkle 1 capsule Orally Once a day; Duration: 30 days Active Eliquis 5 MG Tablet as directed Orally BID Active Metamucil 0.36 GM Capsule as directed Orally Active Allopurinol - Powder as directed Active FLUoxetine HCl 10 MG Capsule 1 capsule Orally Once a day Active Ezetimibe 10 MG Tablet 1 tablet Orally Once a day Active Omeprazole 20 MG Capsule Delayed Release TAKE 1 CAPSULE BY MOUTH EVERY DAY; Duration: 90 Please tell patient to call my office for an appointment. Thanks Active Flonase Sensimist 27.5 MCG/SPRAY Suspension 1 spray in each nostril Nasally BID/PRN Active Immunizations Vaccine Route Administration Date Status Comme nts Influenza Unknown 06/13/2019 Administered Influenza Unknown 07/03/2024 Administered Social History Tobacco Use: Social History Observation Description Date Details (start date - stop date) Never Smoker NA - NA Social History Drugs/Alcohol: Social Info Question Answer Notes Alcohol Screen Did you have a drink containing alcohol in the past year? Yes How often did you have a drink containing alcohol in the past year? 2 to 3 times a week (3 points) How many drinks did you have on a typical day when you were drinking in the past year? 1 or 2 drinks (0 point) How often did you have 6 or more drinks on one occasion in the past year? 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 Section Notes: No sig alcohol, nonsmoker No sig alcohol, nonsmoker No sig alcohol, nonsmoker Problems Problem Type SNOMED Code ICD Code Onset Dates Problem Status W/U Status Risk Notes Problem Rectal bleeding (69629126) Rectal bleeding (K62.5) Active confirmed Problem Screening for malignant neoplasm of colon (352291066) Encounter for screening for malignant neoplasm of colon (Z12.11) Active confirmed Problem History of adenomatous polyp of colon (462385215) History of adenomatous polyp of colon (Z86.010) Active confirmed Problem Irritable bowel syndrome with diarrhea (751522621) Irritable bowel syndrome with diarrhea (K58.0) Active confirmed Problem Reflux esophagitis (710737034) Reflux esophagitis (K21.0) Active confirmed Problem Diarrhea (53932455) Diarrhea, unspecified type (R19.7) Active confirmed Problem Moctezuma's esophagus (028313541) 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) Active confirmed [...] N/A Encounters Encounter Location Date Provider Diagnosis [facility] Outpatient [address] [place], [place] [phone] 06/06/[address] [facility] [address] [place] [phone] 03/05/2025 Adilson Caballero Encounter for screening for malignant neoplasm of colon Z12.11 ; Moctezuma''s esophagus without dysplasia K22.70 ; Reflux esophagitis K21.0 and History of adenomatous polyp of colon Z86.010 [facility] [address] [place] [phone] 05/27/[address] [facility] [address] [place] [phone] 06/06/2025 Adilson Caballero Assessments Encounter Date Diagnosis (ICD Code) Assessment Notes Treatment Notes Treatment Clinical Notes Section Notes 03/05/2025 Encounter for screening for malignant neoplasm of colon (ICD-10 - Z12.11) Overall, Gabriele appears quite well. His reflux seems to [...] medication. We shall clear that with his probate lawyer. The procedures will be done with monitored anesthesia care. Thank you again for allowing me to participate in Gabriele's care. I shall continue to keep you advised of his progress. 03/05/2025 Moctezuma''s esophagus without dysplasia (ICD-10 - K22.70) Overall, Gabriele appears quite well. His reflux seems to [...] medication. We shall clear that with his probate lawyer. The procedures will be done with monitored anesthesia care. Thank you again for allowing me to participate in Gabriele's care. I shall continue to keep you advised of his progress. 03/05/2025 Reflux esophagitis (ICD-10 - K21.0) Overall, Gabriele appears quite well. His reflux seems to [...] medication. We shall clear that with his probate lawyer. The procedures will be done with monitored anesthesia care. Thank you again for allowing me to participate in Gabriele's care. I shall continue to keep you advised of his progress. 03/05/2025 History of adenomatous polyp of colon (ICD-10 - Z86.010) Overall, Gabriele appears quite well. His reflux seems to [...] medication. We shall clear that with his probate lawyer. The procedures will be done with monitored anesthesia care. Thank you again for allowing me to participate in Gabriele's care. I shall continue to keep you advised of his progress. Plan Of Treatment Pending Test Test Name Order Date UPPER GI ENDOSCOPY 03/05/2025 COLONOSCOPY 03/05/2025 Pathology 06/06/2025 Future Test Test Name Order Date COLONOSCOPY 06/27/2019 Insurance Providers Payer Name Payer Address Payer Phone Subscriber Number Group Number Insured Name Patient Relationship to Insured Coverage Start Date Coverage End Date MEDICARE OF [place] [address] [place] [address] [id number] JOHNNY CRAVEN GABRIELE Self - patient is the insured [employer] ATT[employer] CLAIMS [address] [place] [address] [phone] [id number] JOHNNY CRAVEN GABRIELE Self - patient is the insured Medical (General) History Medical History History ICD Code Denies MT,DM,CVA,Lung disease Hypertension Kidney disease-Dr. Patricio Atrial fibrillation [...]
--- OUTSIDE RECORDS SUMMARY | 2025-07-11 14:02 | XMS_ITS ---
Author Organization Unknown ENCOUNTERS Encounter Performer Location Date Diagnosis Diagnosis Status Outpatient [address] [id number] [facility] Emergency Bart Vatrenko [facility] [address] [place] [id number] GILMA Pre Admit [facility] ED Physician [place] [place] [address] [phone] In[address] [address] [id number] [facility] Emergency April [address] [id number] *Note: Encounters from your own facility or health system may be excluded. Allergies, Adverse Reactions, Alerts Allergen Type Severity Identification Date lisinopril drug allergy [id number] Jzozqus-LNQ-WnB Reductase Inhibitor drug allergy [id number] Medications Name Date Quantity Days Supplied GPI Number
== END ==
LOC: HO.CARD 09:47
PROVIDERS: PCP Internal Medicine; Visit Provider Internal Medicine Cardiovascular Disease
DX: I48.20 Chronic atrial fibrillation, unspecified (principal)
CPT/HCPCS: 93306

== ENCOUNTER → 2025-07-11 09:50 | Outpatient (BNV) | payer MEDICARE, SELFPAY | PROVIDERS: PCP Internal Medicine; Visit Provider Internal Medicine | DX: I48.20 Chronic atrial fibrillation, unspecified (principal) | CPT/HCPCS: 93306 ==

== ENCOUNTER 2025-08-05 13:14 | Outpatient (AMB) | payer MEDICARE, SELFPAY ==
--- OUTSIDE RECORDS SUMMARY | 2025-05-29 03:30 | XMS_ITS ---
Author Organization [facility] Address [address] [place] [address] Care Team Providers Care Hide Buffer Name Role Phone Parth Rajan MD Primary Care Provider Adilson Torres [phone] REASON FOR VISIT aguirre's,reflux esophagitis,screening, hx polyps Encounters Encounter Location Date Provider Diagnosis [facility] [place] [address] [place], [place] [phone] 05/29/2025 Adilson Caballero Plan Of Treatment No Information Progress Notes * ALTHEA TURPIN HDOB:1949 (75 yo M)Acc No.[id number]:05/29/2025 EGD and COL/MAC Patient: ALTHEA CASTILLO Provider: Robbie Caballero MD :1950 A ge:74 Y S ex:Male Date:05/29/2025 Address:[address] [place], [place] [address] Pcp:Parth Rajan MD Subjective: * Chief Complaints: * B arrett's,reflux esophagitis,screening, hx polyps * The named appointment provid er may or may not be the originator of this progress note, and it is not deemed complete until electronically signed by the appointment provider. Sign off status: Pending * Provider: Robbie Caballero MD Date: Generated for Samantha olmos/Yosvany/eTransmitting on: 10/06/2024 07:14 PM EST
--- OUTSIDE RECORDS SUMMARY | 2025-05-29 03:30 | XMS_ITS ---
Author Organization [facility] Address [address] [place] [address] Care Team Providers Care Calibration Checker Name Role Phone Parth Rajan MD Primary Care Provider Adilson Torres [phone] REASON FOR VISIT aguirre's,reflux esophagitis,screening, hx polyps Encounters Encounter Location Date Provider Diagnosis [facility] [place] [address] [place], [place] [phone] 05/29/2025 Adilson Caballero Plan Of Treatment No Information Progress Notes * ALTHEA TURPIN HDOB:1949 (75 yo M)Acc No.[id number]:05/29/2025 EGD and COL/MAC Patient: ALTHEA CASTILLO Provider: Robbie Caballero MD :1950 A ge:74 Y S ex:Male Date:05/29/2025 Address:[address] [place], [place] [address] Pcp:Parth Rajan MD Subjective: * Chief Complaints: [...]
--- OUTSIDE RECORDS SUMMARY | 2025-06-06 02:30 | XMS_ITS ---
Author Organization [facility] Address [address] [place] [address] Care Team Providers Care Brake Operator Name Role Phone Parth Rajan MD Primary Care Provider Adilson Torres [phone] REASON FOR VISIT aguirre's,reflux esophagitis,screening, hx polyps Encounters Encounter Location Date Provider Diagnosis [facility] Outpatient [address] [place], [place] [id number] 06/06/2025 Adilson Caballero Plan Of Treatment No Information Progress Notes * ALTHEA TURPIN HDOB:1949 (75 yo M)Acc No.[id number]:06/06/2025 EGD and COL/MAC Patient: ALTHEA CASTILLO Provider: Robbie Caballero MD :1950 A ge:74 Y S ex:Male Date:06/06/2025 Address:[address] [place], [place] [id number] Pcp:Parth Rajan MD Subjective: * Chief Complaints: * B arrett's,reflux esophagitis,screening, hx polyps Billing Information: * Procedure Codes: * The named appointment provid er may or may not be the originator of this progress note, and it is not deemed complete until electronically signed by the appointment provider. Sign off status: Pending * Provider: Robbie Caballero MD Date: Generated for Samantha olmos/Yosvany/eTransmitting on: 10/06/2024 07:14 PM EST
[2025-08-05 13:26] VITALS: BP 116/72; PULSE 76; BMI 24.5
--- NOTE | 2025-08-05 13:26 | MHC.OFFVIS ---
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 Allergies lisinopril Allergy (Severe, Verified 06/06/25 06:29) sob Ajhmoio-VZY-XaO Reductase Inhibitor (Dplkxlb-Niq-Zla Reductase Inhibitor) Allergy (Intermediate, Verified 06/06/25 06:29) myalgia prednisone Allergy (Mild, Verified 06/06/25 06:29) Agitated mold and dustmites Allergy (Unknown, Uncoded 06/06/25 06:29) unknown Medication List - Last Reconciled 08/05/25 by Chas Gonzalez MD allopurinol 200 mg (2 x 100 mg) PO DAILY apixaban (Eliquis) 5 mg PO BID diphenhydramine HCl (Benadryl) 25 mg PO BEDTIME PRN empagliflozin 10 mg PO DAILY ezetimibe (Zetia) 10 mg PO DAILY fluoxetine 10 mg PO DAILY fluticasone propionate 50 mcg/actuation 1 spray intranasal BID PRN levothyroxine 50 mcg PO QAM 90 days metoprolol succinate ER 100 mg PO BID omeprazole 20 mg PO DAILY@0630 psyllium husk (Metamucil) 0.8 grams PO DAILY HPI Comments Details: Gabriele comes for follow-up. Recently came to the emergency room with urinary tract infection. However he is doing well from cardiac perspective. He denies any symptoms of heart failure. Most recent echocardiogram shows mildly reduced LV EF of 45-50% which is not significantly change. Takes all his medications. No prolonged palpitation irregular heartbeat. No lightheadedness, syncope. No bleeding issues or neurologic events. Denies any falls. Does not exercise much as per his . [facility] Medical History GERD (gastroesophageal reflux disease) Moctezuma's esophagus Elevated blood sugar Pericardial effusion Type 2 diabetes mellitus with hyperglycemia Vitamin D deficiency Fatty liver Asthma Erectile dysfunction Esophagitis Gout Hypothyroidism HTN (hypertension) CKD (chronic kidney disease) Chronic atrial fibrillation RBBB Orthostatic hypotension Surgical History History of esophagogastroduodenoscopy (EGD) (2019) Hx of colonoscopy (2019) History of thumb surgery Family History Father CAD (coronary artery disease) Mother Stroke Family/Other Stroke Other No family history of cancer Social History Household Members: Spouse Housing: House Are you a primary animal care assistant to a significant other at home: No Do you presently have visiting nurse or other home services: No Alcohol intake: current Alcohol intake frequency: holidays/special occasions only Alcohol type: wine Patient Tobacco Use Status: Never used Tobacco e-Cigarette/Vaping Use: Never Used Second Hand Smoke Exposure: No Advance Directives Date on File: 11/20/21 service: No Current occupational status: retired Cognitive needs: No Hearing needs: Yes Vision needs: Yes (glasses) Review of Systems Const Denies chills, Denies fatigue, Denies fever(s), Denies frequent falls, Denies weakness, Denies weight gain and Denies weight loss ENT Denies dizziness Card Denies chest pain, Denies leg edema, Denies lightheadedness, Denies palpitations, Denies dyspnea, Denies dyspnea on exertion, Denies orthopnea and Denies other (loss of consciousness) Resp Denies cough, Denies dyspnea and Denies dyspnea on exertion GI Denies hematochezia and Denies change in stool character Musc Denies abnormal gait, Denies muscle weakness, Denies numbness, Denies radiating pain into limb and Denies tingling Neuro Denies abnormal gait, Denies dizziness, Denies frequent falls, Denies numbness, Denies tingling and Denies weakness Endo Denies fatigue and Denies palpitations Physical Exam Vital Signs: Last Vital Signs Pulse 76 08/05/25 13:26 BP 116/72 08/05/25 13:26 BMI result Body Mass Index 24.5 Const General: cooperative, comfortable, no acute distress, alert and awake Nutritional Appearance: average body habitus Orientation/consciousness: patient oriented x3 Neck Neck: Yes trachea midline, Yes supple and Yes no JVD Chest Chest palpation & inspection: normal inspection of the chest Resp Effort & Inspection: normal respiratory effort Auscultation: clear to auscultation bilaterally Cardio Jugular venous distension: no JVD Palpation: normal PMI Rate: tachycardic Rhythm: abnormal rhythm irregularly irregular Heart sounds: S1 normal heart sound present, S2 normal heart sound present, no click, no gallops, no murmurs and no rubs GI Auscultation: normal bowel sounds Skin General skin exam: no rashes or lesions noted Neuro General: patient oriented x3 and no focal motor deficits Extrem General: Yes no clubbing, cyanosis or edema Assessment & Plan Assessment & Plan (1) Cardiomyopathy: Comment: August 2022 Normal LV ejection fraction 55-60% 2. Mild biatrial enlargement 3. Mild mitral regurgitation 4. Normal RV systolic pressure 5. No pericardial effusion Code(s): I42.9 - Cardiomyopathy, unspecified Category: Medical Plan: Mild cardiomyopathy process without any signs or symptoms of heart failure. Continue current therapy, currently on metoprolol for neurohormonal modulation as well as currently on Jardiance which has been used for chronic kidney disease. No signs or symptoms of heart failure. They were discussed. Can not tolerate other medications for neurohormonal modulation due to low blood pressure and orthostatic intolerance. Low-salt diet was discussed. (2) Chronic atrial fibrillation: Code(s): I48.20 - Chronic atrial fibrillation, unspecified Category: Medical Plan: Chronic atrial flutter/fibrillation. Currently rate controlled on metoprolol therapy. Continue the same. Has failed rhythm control approach in the past. No worsening symptoms. Continue full oral anticoagulation, currently on oral anticoagulation therapy with Eliquis 5 mg b.i.d.. Quarterly renal function test should be pursued. Avoidance of stimulants was discussed. (3) Orthostatic hypotension: Code(s): I95.1 - Orthostatic hypotension Category: Medical Plan: Prior history of orthostatic hypotension without any significant symptoms at current point time. Advised to maintain adequate hydration. Currently tolerating metoprolol therapy as prescribed. Continue the same. Orthostatic precautions were discussed. Will follow up in the clinic in 1 year's time, sooner PRN. Thank you for allowing me to partake in his care Coding Level of Care Code Est Pt Level 4 (68081) Diagnoses Cardiomyopathy I42.9 Chronic atrial fibrillation I48.20 Orthostatic hypotension I95.1
--- OUTSIDE RECORDS SUMMARY | 2025-08-05 19:14 | XMS_ITS | Patient Health Record ---
Author Organization [facility] Address [address] [place] [address] Care Team Providers Care Auditor In Charge Name Role Phone Po Parth LONG Primary Care Provider Adilson Torres [phone] Allergies Allergen (clinical drug ingredient) Drug/Non Drug Allergy documented on EMR Reaction Allergy Type Onset Date Status lisinopril Lisinopril Unknown Drug Allergy Activ e PredniSONE Unknown Drug Allergy Active Results Component Value Reference Range Flag Notes Pathology (Not yet reviewed by provider) Interpretation: Performing Lab:[facility], [address] [place] [phone] Notes/Report: Glucose, Whole Blood Reviewed date:06/10/2025 05:45:00 PM Interpretation: Performing Lab:[facility], [address] [place] [phone] Notes/Report: Glucose, Whole Blood 176 60-115 mg/dL H SC TER #: [id number] Reason For Referral No Information Medications Medication [...] status: --w david, Gerda, is a retired [employer] [facility] [facility] [place] Occupation: retired Section Notes: No sig alcohol, nonsmoker No sig alcohol, nonsmoker No sig alcohol, nonsmoker Problems Problem Type SNOMED Code ICD Code Onset Dates Problem Status W/U Status Risk Notes Problem Rectal bleeding (92533261) Rectal bleeding (K62.5) Active confirmed Problem Screening for malignant neoplasm of colon (062711644) Encounter for screening for malignant neoplasm of colon (Z12.11) Active confirmed Problem History of adenomatous polyp of colon (324295194) History of adenomatous polyp of colon (Z86.010) Active confirmed Problem Irritable bowel syndrome with diarrhea (027321578) Irritable bowel syndrome with diarrhea (K58.0) Active confirmed Problem Reflux esophagitis (727270122) Reflux esophagitis (K21.0) Active confirmed Problem Diarrhea (98218205) Diarrhea, unspecified type (R19.7) Active confirmed Problem Moctezuma's esophagus (308843064) 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) Active confirmed [...] N/A Encounters Encounter Location Date Provider Diagnosis [facility] [place] [address] [place], [place] [phone] 06/06/2025 Adilson Federico [facility] [address] [place] [address] 03/05/2025 Adilson Caballero Encounter for screening for malignant neoplasm of colon Z12.11 ; Moctezuma''s esophagus without dysplasia K22.70 ; Reflux esophagitis K21.0 and History of adenomatous polyp of colon Z86.010 [facility] [address] [place] [phone] 05/27/2025 Adilson Caballero [facility] [address] [place] [phone] 06/06/2025 Adilson Caballero Assessments Encounter Date Diagnosis [...] medication. We shall clear that with his mechanical expert. The procedures will be done with monitored [...] medication. We shall clear that with his mechanical expert. The procedures will be done with monitored [...] medication. We shall clear that with his mechanical expert. The procedures will be done with monitored [...] medication. We shall clear that with his mechanical expert. The procedures will be done with monitored [...] Date [place]ARE OF [place] [address] [place] [address] [id number] JOHNNY CRAVEN GABRIELE Self - patient is the insured [employer] ATT[employer] CLAIMS [address] [place] [address] [phone] [id number] JOHNNY CRAVEN GABRIELE Self - patient is the insured Medical (General) History Medical History History ICD Code Denies [place],DM,CVA,Lung disease Hypertension Kidney disease-Dr. Patricio Atrial fibrillation [...]
== END 2025-08-05 13:49 | disposition home or self-care (01) ==
LOC: HO.HCS 13:14
PROVIDERS: PCP Internal Medicine; Visit Provider Internal Medicine Cardiovascular Disease
DX: I42.9 Cardiomyopathy, unspecified (principal); I48.20 Chronic atrial fibrillation, unspecified; I95.1 Orthostatic hypotension
CPT/HCPCS: 99214

== ENCOUNTER → 2025-08-05 13:14 | Outpatient (BNVA) | payer MEDICARE, SELFPAY | PROVIDERS: PCP Internal Medicine; Visit Provider Internal Medicine Cardiovascular Disease | DX: I95.1 Orthostatic hypotension (principal); I48.20 Chronic atrial fibrillation, unspecified; I42.9 Cardiomyopathy, unspecified | CPT/HCPCS: 99212 ==